=== PATIENT | male | born 1975 | race Caucasian/White ===

== ENCOUNTER 2016-08-14 20:20 | Emergency (ER) | payer MEDICARE, OTHER ==
[~2016-08-14] VITALS: Ht 180.3 cm; Wt 100.0 kg
[~2016-08-14 20:20] MED LIST: AMIO200 PO; APIX5 PO; CINA30 PO; HUMALOG SQ; HYDR-3129 PO; LACT10SO PO; LEVEMIR SQ; NOVOLOGSS SQ; OMEP20TA PO; OMEP20TA39 PO; PHOS667C PO
[2016-08-14 20:40] VITALS: BP 134/89; PULSE 92; RESP 18; TEMP 98.7; O2SAT 100
--- NOTE | 2016-08-15 04:43 | PD ---
HPI Chief Complaint: Skin Problem Time Seen by Provider: 04:35 Travel History International Travel<30 days: No Contact w/Intl Traveler<30days: No Traveled to known affect area: No History of Present Illness HPI 41-year-old male presents to the emergency department for evaluation of possible abscess to his upper mid back overlying the spine. Patient states that area has been inflamed 2 weeks. Patient states that he goes to hemodialysis Friday where the nurses have been applying dressings and trying to express purulent drainage. Patient denies any fever or chills. Patient is diabetic. Patient states area has not resolved and is becoming more tender so decided to come to the emergency room for evaluation. Patient denies vomiting chest pain shortness of breath abdominal pain has had mild nausea. Patient has extensive past medical history including diabetes right-sided BKA hypertension hemodialysis with chronic renal failure CAD CHF atrial fibrillation dyslipidemia rheumatoid arthritis anxiety depression previous MRSA abscess requiring surgical drainage. The patient rates his pain 6 -8/10 in intensity. Patient has not been on antibiotic therapy. Patient reports he missed his evening diabetic medications and ate before coming to the Emergency Department. [facility] Past Medical History Narrative Medical Cellulitis C. difficile colitis pneumonia right BKA CAD hyperkalemia renal calcinosis GERD sleep apnea sepsis atrial fibrillation CHF end-stage renal disease with hemodialysis diabetes anxiety cardiomyopathy osteomyelitis left little finger status post amputation atrial fibrillation seizure left upper extremity dialysis AV fistula; positive tobacco use; nursing notes reviewed. Hx Anticoagulant Therapy: Yes Arthritis: Yes (rheumatoid) Asthma: No Atrial Fibrillation: Yes Autoimmune Disease: No Blood Disorders: No Bipolar Disorder: Yes Anxiety: Yes Depression: Yes Heart Rhythm Problems: Yes Cancer: No Cardiac Catheterization: Yes (FOR ABLATION) Cardiovascular Problems: Yes High Cholesterol: Yes Chemotherapy: No Chest Pain: Yes Congestive Heart Failure: Yes COPD: No Cerebrovascular Accident: Yes (TIA) Diabetes: Yes Dialysis: Yes (MON, WED, FRI ) Diminished Hearing: No Endocrine: Yes Gastrointestinal Disorders: Yes GERD: Yes Glaucoma: Yes Genitourinary: Yes (DOESN'T VOID/MWF HD) Headaches: Yes Hepatitis: No Hiatal Hernia: No Hypertension: Yes Immune Disorder: No Implanted Vascular Access Dvce: Yes (DIALYSIS) Kidney Stones: Yes Musculoskeletal: Yes (back pain) Neurologic: Yes Psychiatric: No Reproductive: No Respiratory: No Immunizations Current: Yes Migraines: Yes Myocardial Infarction: Yes Radiation Therapy: No Renal Failure: Yes Schizophrenia: Yes Seizures: Yes (states med induced seizure) Sickle Cell Disease: No Sleep Apnea: Yes Thyroid Disease: No Ulcer: No Past Surgical History Abdominal Surgery: Yes (pyloric stenosis as ) AICD: No Appendectomy: No Arteriovenous Shunt: Yes (left arm) Body Medical Devices: left arm fistula Cardiac Surgery: Yes (Ablation to heart) Cholecystectomy: No Ear Surgery: No Endocrine Surgery: No Eye Surgery: Yes (CATARACTS REMOVED, MANY EYE SURGERIES) Genitourinary Surgery: Yes (left arm fistula) Gynecologic Surgery: No Insulin Pump: No Joint Replacement: No Neurologic Surgery: No Oral Surgery: No Pacemaker: No Thoracic Surgery: No Other Surgery: Yes (AV FISTULA PLACED LEFT ARM: 2010) Social History Alcohol Use: No Tobacco Use: Yes (2 cigarettes a day) Substance Use: No Allergies-Medications (Allergen,Severity, Reaction): Coded Allergies: Haldol (Verified Allergy, Severe, THROAT CLOSES UP, 04/10/16) Reglan (Verified Allergy, Severe, Irritability/Anxiety, 04/10/16) DYSTONIC REACTION Azithromycin (Verified Allergy, Intermediate, anxiety and itching, ) Clonidine (Verified Adverse Reaction, Severe, 04/10/16) PT STATES HE GOES COMATOSE OR GETS VERY CRAZY, MEMORY LOSS Dilaudid (Verified Adverse Reaction, Severe, becomes belligerent and out of control , 04/10/16) pt states does not have a allergy to this med Ativan (Verified Adverse Reaction, Intermediate, MAKES ANXIETY WORSE, ) *MDRO Multi-Drug Resistant Organism (Verified Adverse Reaction, Unknown, 04/10/16) MRSA (blood & ankle) - 04/2014; (buttock & chest) - 10/2015; (finger) - 12/23/15; (sputum) - 12/25/15; (Finger Wound) - 01/2016 MRSA PCR Screen POSITIVE - 01/10/15, 12/23/15, 02/25/16 MRSA & Klebsiella pneumoniae ESBL Pos (finger wound) - 02/07/16 Uncoded Allergies: ANTIEMETICS ( PER PT ALL ) (Adverse Reaction, Unknown, MAKES " ME CRAZY ", 11/21/15) Reported Meds & Prescriptions Reported Meds & Active Scripts Active Doxycycline Hyclate 100 Mg Cap 100 Mg PO BID Clindamycin (Clindamycin HCl) 150 Mg Cap 300 Mg PO Q6H 7 Days Lactulose Liq (Lactulose) 10 Gm/15 Ml Soln 30 Ml PO Q12HR 7 Days Novolog Insulin Supplemental Scale (Insulin Aspart) 100 /Ml Inj 1-9 Units SQ TIDACHS Max dose at bedtime:( )units; sugars less than 70, (0)units; sugars 150-199, (1)units; sugars 200-249, (3)units; sugars 250-299, (5)units; sugars 300-349,(7)units; sugars greater than 349, (9)units Scott 10-325 mg (Hydrocodone-Acetaminophen 10-325 mg) 1 Tab 1 Tab PO Q6H PRN Eliquis (Apixaban) 5 Mg Tab 5 Mg PO BID 30 Days Cordarone 200 Mg Tab (Amiodarone HCl) 200 Mg Tab 200 Mg PO DAILY 30 Days Levemir (Insulin Detemir) Inj 15 Units SQ Q12HR 30 Days Reported Humalog Inj (Insulin Human Lispro) 1,000 Unit/10 Ml Vial 5-25 Units SQ TIDAC Max dose at bedtime:( )units; sugars < 70,(0)units; sugars 150-199,(5)units; sugars 200-249,(10)units; sugars 250-299,(15)units; sugars 300-349,(20)units; sugars more than 349,(25)units. Omeprazole 20 Mg Tab 20 Mg PO DAILY Phoslo (Calcium Acetate) 667 Mg Cap 667 Mg PO TID Sensipar 30 mg (Cinacalcet) 30 Mg Tab 1 Tab PO DAILY Omeprazole (Omeprazole) 20 Mg Tab 20 Mg PO DAILY Review of Systems Except as stated in HPI: all other systems reviewed are Neg General / Constitutional: No: Fever, Chills HENT: No: Congestion Cardiovascular: No: Chest Pain or Discomfort Respiratory: No: Shortness of Breath Gastrointestinal: Positive: Nausea, No: Vomiting, Abdominal Pain Genitourinary: No: Flank Pain Musculoskeletal: No: Myalgias, Arthralgias Skin: Positive Lumps Neurologic: No: Weakness, Dizziness, Syncope Psychiatric: No: Anxiety Endocrine: No: Heat Intolerance Hematologic/Lymphatic: No: Easy Bruising Physical Exam Narrative GENERAL: Well-developed well-nourished male in wheelchair with left BKA in no acute distress no respiratory distress SKIN: Warm and dry. Midthoracic back overlying the spine is a 7.5 x 7.5 cluster of multiple pustules with purulent and seropurulent drainage tender to palpation with induration and no central pointing or fluctuance with extending induration 10 cm x 10 cm. HEAD: Normocephalic. EYES: No scleral icterus. No injection or drainage. NECK: Supple, trachea midline. No JVD or lymphadenopathy. CARDIOVASCULAR: Increased Regular rate and rhythm without murmurs, gallops, or rubs. RESPIRATORY: Breath sounds equal bilaterally. No accessory muscle use. GASTROINTESTINAL: Abdomen soft, non-tender, nondistended. MUSCULOSKELETAL: No cyanosis, or edema. LUE av fistula BACK: Nontender without obvious deformity. No CVA tenderness. Data Data Last Documented VS Vital Signs Date Time Temp Pulse Resp B/P Pulse Ox O2 Delivery O2 Flow Rate FiO2 08/14/16 20:40 98.7 92 18 134/89 100 Orders Basic Metabolic Panel (Bmp) (08/15/16 04:35) Complete Blood Count With Diff (08/15/16 04:35) Blood Culture (08/15/16 04:35) Wound Culture And Gram Stain (08/15/16 04:35) Iv Access Insert/Monitor (08/15/16 04:35) Clindamycin Inj (Cleocin Inj) (08/15/16 04:45) Lactic Acid (08/15/16 04:35) Insulin Human Regular Inj (Novolin R Inj (08/15/16 05:15) Sodium Chlor 0.9% 250 Ml Inj (Ns 250 Ml (08/15/16 05:15) Blood Glucose (08/15/16 05:04) Acetamin-Hydrocod 325-10 Mg (Scott 10-32 (08/15/16 05:30) Morphine Inj (Morphine Inj) (08/15/16 05:45) Acetamin-Hydrocod 325-10 Mg (Scott 10-32 (08/15/16 06:45) Labs Laboratory Tests Test 08/15/16 04:50 White Blood Count 7.1 TH/MM3 Red Blood Count 4.81 MIL/MM3 Hemoglobin 14.6 GM/DL Hematocrit 46.1 % Mean Corpuscular Volume 95.7 FL Mean Corpuscular Hemoglobin 30.4 PG Mean Corpuscular Hemoglobin 31.7 % Concent Red Cell Distribution Width 16.6 % Platelet Count 133 TH/MM3 Mean Platelet Volume 8.3 FL Neutrophils (%) (Auto) 72.9 % Lymphocytes (%) (Auto) 13.3 % Monocytes (%) (Auto) 8.4 % Eosinophils (%) (Auto) 2.2 % Basophils (%) (Auto) 3.2 % Neutrophils # (Auto) 5.2 TH/MM3 Lymphocytes # (Auto) 0.9 TH/MM3 Monocytes # (Auto) 0.6 TH/MM3 Eosinophils # (Auto) 0.2 TH/MM3 Basophils # (Auto) 0.2 TH/MM3 CBC Comment AUTO DIFF Differential Comment AUTO DIFF CONFIRMED Platelet Estimate LOW Platelet Morphology Comment NORMAL Red Cell Morphology Comment NORMAL Sodium Level 133 MEQ/L Potassium Level 4.7 MEQ/L Chloride Level 96 MEQ/L Carbon Dioxide Level 22.9 MEQ/L Anion Gap 14 MEQ/L Blood Urea Nitrogen 37 MG/DL Creatinine 6.50 MG/DL Estimat Glomerular Filtration 9 ML/MIN Rate Random Glucose 430 MG/DL Lactic Acid Level 1.2 mmol/L Calcium Level 8.5 MG/DL [facility] Medical Decision Making Medical Screen Exam Complete: Yes Emergency Medical Condition: Yes Medical Record Reviewed: Yes Interpretation(s) lactic acid: 1.2, not elevated CBC is automated differential: Mild thrombocytopenia 133K and left shift by automated differential 72.9% neutrophils Metabolic panel: Bicarbonate and anion gap found to be in normal range random glucose 430, elevated; BUN/creatinine chronically elevated consistent with chronic renal failure 37/6.50; potassium 4.7 CBC & BMP Diagram 08/15/16 04:50 Vital Signs Date Time Temp Pulse Resp B/P Pulse Ox O2 Delivery O2 Flow Rate FiO2 08/14/16 20:40 98.7 92 18 134/89 100 Differential Diagnosis Carbuncle, abscess, cellulitis, uncontrolled diabetes, sirs, sepsis Narrative Course IV access obtained specimens collected and sent for resulting patient noted at bedside to have glucose of 402; normal saline bolus administered 250 cc along with regular insulin. Patient requesting pain medication states he takes hydrocodone 10 mg/325 at home and that it only provide some pain relief for his legs states that it will not work for his back as it is for the past 2 weeks. Patient reports that he does tolerate IV morphine without nausea or vomiting. Refused hydrocodone 10/ 325 here by mouth. @ 0659 antibiotic completed recheck glucose: 364; patient clinically improved; VS: stable; patient does not meet sirs or sepsis criteria and reports feels clinically improved; patient encouraged regarding close follow up with his PCP, to monitor his temperature for fever, and take as tolerated acetaminophen for t : >/=100.4 F, also to return if fever, increased pain, or worsening symptoms or any other concerns. Patient given his morning hydrocodone. Critical Care Narrative Aggregate critical care time was 35 minutes. Time to perform other separately billable procedures was not included in the critical care time. My time did not include minutes spent treating any other patients simultaneously or on activities that did not directly contribute to the patient's treatment. The services I provided to this patient were to treat and/or prevent clinically significant deterioration that could result in: Sepsis, metabolic derangement, I provided critical care services requiring my management, as noted below: Chart data review, documentation time, medication orders and management, vital sign assessments/reviewing monitor data, ordering and reviewing lab tests, ordering and interpreting/reviewing x-rays and diagnostic studies, care of the patient and discussion of the patient with the admitting physicians. Diagnosis Primary Impression: Carbuncle of back Additional Impressions: Hyperglycemia Diabetes type 1, uncontrolled Qualified Code: E10.22 - Uncontrolled type 1 diabetes mellitus with chronic kidney disease on chronic dialysis Referrals: Primary Care Physician 1 day Patient Instructions: Narcotic given in the ED, General Instructions Additional Instructions: Complete course of antibiotic as prescribed Follow-up with your primary care provider call office in a.m. to schedule appointment Monitor temperature every 4 hours with thermometer take acetaminophen as needed for fever 100.4F or greater Follow diabetic diet and monitor blood sugars closely Return to the emergency department for any concerns or change in condition Keep wound site clean and dry apply dressing as needed Recommend recheck in the emergency department and 12-24 hours or for any worsening of condition such as fever increase pain uncontrolled blood sugars or any concerns Med/Other Pt SpecificInfo: Prescription(s) given Scripts Doxycycline Hyclate 100 Mg [id number] Mg PO BID #14 CAP Ref 0 Prov:Isabella Sutton MD 08/15/16 Clindamycin 150 Mg [id number] Mg PO Q6H 7 Days Ref 0 Prov:Isabella Sutton MD 08/15/16 Disposition: 01 DISCHARGE HOME Condition: Stable Isabella Sutton MD Aug 15, 2016 04:43
[2016-08-15] MEDS ORDERED: CLINDAMYCIN INJ 900 MG in SODIUM CHLORIDE 0.9% INJ 100 ML IV ONE (04:45)
[2016-08-15 05:06] LABS: AUTOMATED NEUTROPHIL # 5.2 TH/MM3 (1.8-7.7); BASOPHIL # 0.2 TH/MM3 (0-0.2); BASOPHIL % 3.2 % (0.0-2.0); EOSINOPHIL # 0.2 TH/MM3 (0-0.4); EOSINOPHIL % 2.2 % (0.0-4.0); HEMATOCRIT 46.1 % (39.0-51.0); LYMPH % 13.3 % (9.0-44.0); LYMPHOCYTE # 0.9 TH/MM3 (1.0-4.8); MEAN CELL VOLUME 95.7 FL (80.0-100.0); MEAN CORPUSCULAR HEMOGLOBIN 30.4 PG (27.0-34.0); MEAN CORPUSCULAR HGB CONC 31.7 % (32.0-36.0); MONO % 8.4 % (0.0-8.0); NEUT % 72.9 % (16.0-70.0); PLATELET COUNT 133 TH/MM3 (150-450); RED BLOOD COUNT 4.81 MIL/MM3 (4.50-5.90); RED CELL DISTRIBUTION WIDTH 16.6 % (11.6-17.2); WHITE BLOOD COUNT 7.1 TH/MM3 (4.0-11.0)
[2016-08-15 05:07] LABS: HEMO FLAGS AUTO DIFF
[2016-08-15 05:15] LABS: POTASSIUM 4.7 MEQ/L (3.5-5.1)
[2016-08-15] MEDS ORDERED: SODIUM CHLOR 0.9% 250 ML INJ 250 ML IV ONE (05:15)
[2016-08-15] MEDS ORDERED: INSULIN HUMAN REGULAR 1,000 UNITS/10 ML VIAL SQ ONE (05:15)
[2016-08-15 05:21] LABS: PLATELET ESTIMATE SMEAR LOW (NORMAL); PLATELET MORPHOLOGY NORMAL (NORMAL); SCAN/DIFF AUTO DIFF CONFIRMED
[2016-08-15] MEDS ORDERED: ACETAMINOPHEN/HYDROcodone 325 MG/10 MG TAB PO ONE ×2 (05:30→06:45)
[2016-08-15 05:33] LABS: BICARBONATE 22.9 MEQ/L (21.0-32.0)
[2016-08-15 05:40] VITALS: BP 137/68; PULSE 82; RESP 20; O2SAT 96
[2016-08-15] MEDS ORDERED: MORPHINE SULFATE 4 MG/ML INJ IV PUSH ONE (05:45)
[2016-08-15] MEDS ORDERED: CLIN1CAP5 PO (06:37)
[2016-08-15] MEDS ORDERED: DOXY100C PO (06:37)
[2016-08-15 06:40] VITALS: BP 126/73; PULSE 84; RESP 18; TEMP 97.6; O2SAT 94
[2016-08-15 06:43] VITALS: RESP 18
[2016-08-15] MEDS ORDERED: HUMALOG SQ (07:38)
[2016-08-15] MEDS ORDERED: ALPR.5 PO (07:38)
[2016-08-15] MEDS ORDERED: CYMB60CA PO (07:38)
[2016-08-15] MEDS ORDERED: HYDR-3583 PO (07:38)
[2016-08-15] MEDS ORDERED: ASPI325T PO (07:38)
== END 2016-08-15 07:40 | disposition home or self-care (01) ==
LOC: PHED 20:20 → PHEFT 08-15 07:40
DX: L02.232 Carbuncle of back [any part, except buttock and flank] (principal); E11.65 Type 2 diabetes mellitus with hyperglycemia; E11.22 Type 2 diabetes mellitus with diabetic chronic kidney disease; I12.0 Hypertensive chronic kidney disease with stage 5 chronic kidney disease or end stage renal disease; N18.6 End stage renal disease; I50.9 Heart failure, unspecified; I48.91 Unspecified atrial fibrillation; I42.9 Cardiomyopathy, unspecified; I25.10 Atherosclerotic heart disease of native coronary artery without angina pectoris; G47.30 Sleep apnea, unspecified; I25.2 Old myocardial infarction; E78.00 Pure hypercholesterolemia, unspecified; F17.210 Nicotine dependence, cigarettes, uncomplicated; Z99.2 Dependence on renal dialysis; Z79.01 Long term (current) use of anticoagulants; Z86.73 Personal history of transient ischemic attack (TIA), and cerebral infarction without residual deficits; Z89.511 Acquired absence of right leg below knee
CPT/HCPCS: 80048; 83605; 85025; 87040; 87070; 96361; 96365; 96372; 96375; 99285; J1815; J2270; J7050

== ENCOUNTER 2016-10-12 23:39 | Emergency (ER) | payer MEDICARE, OTHER ==
[~2016-10-12] VITALS: Ht 172.7 cm; Wt 102.0 kg
[~2016-10-12 23:39] MED LIST changes: +ALPR.5 PO; -AMIO200 PO; -APIX5 PO; +ASPI325T PO; -CINA30 PO; +CLIN1CAP5 PO; +CYMB60CA PO; +DOXY100C PO; -HYDR-3129 PO; +HYDR-3583 PO; -LEVEMIR SQ; -NOVOLOGSS SQ; -OMEP20TA39 PO; -PHOS667C PO
[2016-10-12 23:44] VITALS: BP 120/90; PULSE 133; RESP 12; TEMP 97.8; O2SAT 100
[2016-10-13 00:05] VITALS: BP 120/90; PULSE 102; RESP 18; TEMP 97.8; O2SAT 99
[2016-10-13] MEDS ORDERED: metroNIDAZOLE 500 MG INJ 100 ML IV ONE (00:30)
[2016-10-13] MEDS ORDERED: LIDOCAINE HCL 1% PF 30 ML VIAL INFIL ONE (00:30)
[2016-10-13] MEDS ORDERED: DOXYCYCLINE INJ 100 MG in SODIUM CHLORIDE 0.9% INJ 100 ML IV ONE (00:30)
[2016-10-13 01:00] LABS: AUTOMATED NEUTROPHIL # 5.6 TH/MM3 (1.8-7.7); BASOPHIL # 0.1 TH/MM3 (0-0.2); BASOPHIL % 1.9 % (0.0-2.0); EOSINOPHIL # 0.1 TH/MM3 (0-0.4); EOSINOPHIL % 1.9 % (0.0-4.0); HEMATOCRIT 48.1 % (39.0-51.0); LYMPH % 14.1 % (9.0-44.0); LYMPHOCYTE # 1.1 TH/MM3 (1.0-4.8); MEAN CELL VOLUME 96.2 FL (80.0-100.0); MEAN CORPUSCULAR HGB CONC 32.2 % (32.0-36.0); MONO % 7.6 % (0.0-8.0); NEUT % 74.5 % (16.0-70.0); PLATELET COUNT 112 TH/MM3 (150-450); RED CELL DISTRIBUTION WIDTH 17.6 % (11.6-17.2); WHITE BLOOD COUNT 7.5 TH/MM3 (4.0-11.0)
[2016-10-13 01:01] LABS: HEMO FLAGS DIFF FINAL
[2016-10-13 01:07] LABS: POTASSIUM 4.4 MEQ/L (3.5-5.1)
--- NOTE | 2016-10-13 01:09 | PD ---
HPI Chief Complaint: Skin Problem Time Seen by Provider: 00:17 Travel History International Travel<30 days: No Contact w/Intl Traveler<30days: No Traveled to known affect area: No History of Present Illness HPI 41-year-old male presents to the emergency department by private transportation for evaluation of facial abscesses affecting the left upper face that extends to his neck and multiple abscesses to the back. Patient's had no fever or chills. Patient has multiple medical problems including chronic renal failure receiving hemodialysis Friday as well as history of diabetes with right lower extremity BKA hypertension CAD CHF atrial fibrillation dyslipidemia anxiety depression previous MRA abscess requiring surgical drainage multiple amputations and rheumatoid arthritis. Patient has been on clindamycin since Friday and states the area to the left side of his face just in front of his left ear has continued to swell and patient had the site lanced by the provider at dialysis Center on Friday. Patient does not feel that the area is improving. Patient states that he's been taking aspirin for pain. Patient states she's been seen before for same complaint and has had good control of multiple areas of small abscesses on clindamycin and doxycycline. Patient was previously on Eliquis but states he has been off of this medication for at least 2 months or longer. 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 Patient's had no chest pain or shortness of breath or palpitations. Patient states his blood sugars have been well- controlled. Patient rates abscess site pain 10 over 10 in intensity. Last dose of clindamycin at 8 PM Friday evening. 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 forearm AV fistula; nursing notes reviewed Hx Anticoagulant Therapy: Yes Arthritis: Yes (rheumatoid) Asthma: No Atrial Fibrillation: Yes Autoimmune Disease: No Blood Disorders: No Bipolar Disorder: Yes Anxiety: Yes Depression: Yes Heart Rhythm Problems: Yes Cancer: No Cardiac Catheterization: Yes (FOR ABLATION) Cardiovascular Problems: Yes High Cholesterol: Yes Chemotherapy: No Chest Pain: Yes Congestive Heart Failure: Yes COPD: No Cerebrovascular Accident: Yes (TIA) Diabetes: Yes Patient Takes Glucophage: No Dialysis: Yes (FRI, FRI, FRI ) Diminished Hearing: No Endocrine: Yes Gastrointestinal Disorders: Yes GERD: Yes Glaucoma: Yes Genitourinary: Yes (DOESN'T VOID/MWF HD) Headaches: Yes Hepatitis: No Hiatal Hernia: No Heparin Induced Thrombocytopen: No Hypertension: Yes Immune Disorder: No Implanted Vascular Access Dvce: Yes (DIALYSIS) Kidney Stones: Yes Medical other: Yes (edema left calf s/p infection) Musculoskeletal: Yes (back pain) Neurologic: Yes Psychiatric: No Reproductive: No Respiratory: No Immunizations Current: Yes Migraines: Yes Myocardial Infarction: Yes Radiation Therapy: No Renal Failure: Yes Schizophrenia: Yes Seizures: Yes (states med induced seizure) Sickle Cell Disease: No Sleep Apnea: Yes Thyroid Disease: No Ulcer: No Tetanus Vaccination: < 5 Years Influenza Vaccination: Yes Past Surgical History Abdominal Surgery: Yes (pyloric stenosis as ) AICD: No Appendectomy: No Arteriovenous Shunt: Yes (left arm) Body Medical Devices: left arm fistula Cardiac Surgery: Yes (Ablation to heart) Cholecystectomy: No Ear Surgery: No Endocrine Surgery: No Eye Surgery: Yes (CATARACTS REMOVED, MANY EYE SURGERIES) Genitourinary Surgery: Yes (left arm fistula) Gynecologic Surgery: No Insulin Pump: No Joint Replacement: No Neurologic Surgery: No Oral Surgery: No Pacemaker: No Thoracic Surgery: No Other Surgery: Yes (AV FISTULA PLACED LEFT ARM: 2009) Social History Alcohol Use: No Tobacco Use: Yes (2 cigarettes a day) Substance Use: No Allergies-Medications (Allergen,Severity, Reaction): Coded Allergies: Haldol (Verified Allergy, Severe, THROAT CLOSES UP, 10/13/16) Reglan (Verified Allergy, Severe, Irritability/Anxiety, 10/13/16) DYSTONIC REACTION Azithromycin (Verified Allergy, Intermediate, anxiety and itching, 10/13/16 ) Clonidine (Verified Adverse Reaction, Severe, 10/13/16) PT STATES HE GOES COMATOSE OR GETS VERY CRAZY, MEMORY LOSS Dilaudid (Verified Adverse Reaction, Severe, becomes belligerent and out of control , 10/13/16) pt states does not have a allergy to this med Ativan (Verified Adverse Reaction, Intermediate, MAKES ANXIETY WORSE, 10/13) *MDRO Multi-Drug Resistant Organism (Verified Adverse Reaction, Unknown, ) MRSA (blood & ankle) - 04/2014; (buttock & chest) - 10/2015; (finger) - 12/23/15; (sputum) - 12/25/15; (Finger Wound) - 01/2016 MRSA PCR Screen POSITIVE - 01/10/15, 12/23/15, 02/25/16 MRSA & Klebsiella pneumoniae ESBL Pos (finger wound) - 02/07/16 Uncoded Allergies: ANTIEMETICS ( PER PT ALL ) (Adverse Reaction, Unknown, MAKES " ME CRAZY ", 11/21/15) Reported Meds & Prescriptions Reported Meds & Active Scripts Active Doxycycline Hyclate 100 Mg Cap 100 Mg PO BID Clindamycin (Clindamycin HCl) 150 Mg Cap 300 Mg PO Q6H 7 Days Reported Hydrocodone-Acetaminophen 10-325 mg Tab 1 Tab PO Q4H PRN Xanax (Alprazolam) 0.5 Mg Tab 0.5 Mg PO HS PRN Cymbalta DR (Duloxetine HCl) 60 Mg Capdr 60 Mg PO DAILY Aspirin 325 Mg Tab 325 Mg PO DAILY Humalog Inj (Insulin Human Lispro) 1,000 Unit/10 Ml Vial 5-25 Units SQ ACHS Max dose at bedtime:( )units; sugars < 70,(0)units; sugars 150-199,(5)units; sugars 200-249,(10)units; sugars 250-299,(15)units; sugars 300-349,(20)units; sugars more than 349,(25)units. Humalog Inj (Insulin Human Lispro) 1,000 Unit/10 Ml Vial 5-25 Units SQ TIDAC Max dose at bedtime:( )units; sugars < 70,(0)units; sugars 150-199,(5)units; sugars 200-249,(10)units; sugars 250-299,(15)units; sugars 300-349,(20)units; sugars more than 349,(25)units. Omeprazole 20 Mg Tab 20 Mg PO DAILY Review of Systems Except as stated in HPI: all other systems reviewed are Neg General / Constitutional: No: Fever, Chills HENT: No: Congestion Cardiovascular: No: Chest Pain or Discomfort Respiratory: No: Shortness of Breath Gastrointestinal: No: Nausea, Vomiting, Abdominal Pain Genitourinary: No: Flank Pain Musculoskeletal: No: Myalgias, Arthralgias Skin: Positive Rash, Positive Lumps (multiple lumps to the back and left face) Neurologic: No: Weakness, Dizziness, Focal Abnormalities, Coordination Problem Psychiatric: No: Anxiety Hematologic/Lymphatic: No: Easy Bruising, Lymph Node Enlargement Physical Exam Narrative GENERAL: Well-developed well-nourished male in no acute distress no respiratory distress SKIN: Warm and dry. Multiple areas of soft tissue swelling with clusters of pinpoint purulent drainage with one area of central fluctuance to the left upper back and 3 other areas with out fluctuance but induration noted with areas of pinpoint purulent drainage. HEAD: Normocephalic. EYES: No scleral icterus. No injection or drainage. ENT: Mucous membranes moist airway patent attention left face soft tissue swelling just anterior to extending to the tragus with evidence of previous incision with out active drainage or wick in place. Tender to palpation and small area is fluctuant with mild tenderness to palpation along the left face at mandible without soft tissue swelling induration or erythema no submandibular mass or tenderness. Tympanic membrane poorly visualized but no redness or drainage noted; soft tissue swelling of the area anterior to the tragus without external auditory canal swelling NECK: Supple, trachea midline. No JVD or lymphadenopathy. CARDIOVASCULAR: Regular rate and rhythm without murmurs, gallops, or rubs. RESPIRATORY: Breath sounds equal bilaterally. No accessory muscle use. GASTROINTESTINAL: Abdomen soft, non-tender, nondistended. MUSCULOSKELETAL: No cyanosis, or edema. BACK: Nontender without obvious deformity. No CVA tenderness. Data Data Last Documented VS Vital Signs Date Time Temp Pulse Resp B/P Pulse Ox O2 Delivery O2 Flow Rate FiO2 10/13/16 04:26 96 18 104/58 98 Room Air 10/13/16 00:05 97.8 Orders Basic Metabolic Panel (Bmp) (10/13/16 00:18) Complete Blood Count With Diff (10/13/16 00:18) Blood Culture (10/13/16 00:18) Wound Culture And Gram Stain (10/13/16:18) Iv Access Insert/Monitor (10/13/16:18) Wound Care (10/13/16 00:18) Lactic Acid (10/13/16 00:18) Doxycycline Inj (Vibramycin Inj) (10/13/16 00:30) Metronidazole 500 Mg Inj (Flagyl 500 Mg (10/13/16 00:30) Lidocaine Pf 1% Inj (Xylocaine-Mpf 1% In (10/13/16 00:30) Acetamin-Hydrocod 325-5 Mg ([place] 5-325 (10/13/16 02:30) Ct Soft Tiss Neck W/O Iv Cont (10/13/16 ) Morphine Inj (Morphine Inj) (10/13/16 03:45) Wound Culture And Gram Stain (10/13/16 04:04) Labs Laboratory Tests Test 10/13/16 00:45 White Blood Count 7.5 TH/MM3 Red Blood Count 5.00 MIL/MM3 Hemoglobin 15.5 GM/DL Hematocrit 48.1 % Mean Corpuscular Volume 96.2 FL Mean Corpuscular Hemoglobin 31.0 PG Mean Corpuscular Hemoglobin 32.2 % Concent Red Cell Distribution Width 17.6 % Platelet Count 112 TH/MM3 Mean Platelet Volume 8.6 FL Neutrophils (%) (Auto) 74.5 % Lymphocytes (%) (Auto) 14.1 % Monocytes (%) (Auto) 7.6 % Eosinophils (%) (Auto) 1.9 % Basophils (%) (Auto) 1.9 % Neutrophils # (Auto) 5.6 TH/MM3 Lymphocytes # (Auto) 1.1 TH/MM3 Monocytes # (Auto) 0.6 TH/MM3 Eosinophils # (Auto) 0.1 TH/MM3 Basophils # (Auto) 0.1 TH/MM3 CBC Comment DIFF FINAL Differential Comment Sodium Level 131 MEQ/L Potassium Level 4.4 MEQ/L Chloride Level 94 MEQ/L Carbon Dioxide Level 23.1 MEQ/L Anion Gap 14 MEQ/L Blood Urea Nitrogen 51 MG/DL Creatinine 9.90 MG/DL Estimat Glomerular Filtration 6 ML/MIN Rate Random Glucose 171 MG/DL Lactic Acid Level 1.6 mmol/L Calcium Level 10.0 MG/DL MDM Medical Decision Making Medical Screen Exam Complete: Yes Emergency Medical Condition: Yes Medical Record Reviewed: Yes Interpretation(s) CBC & BMP Diagram 10/13/16 00:45 lactic acid: 1.6, not elevated Vital Signs Date Time Temp Pulse Resp B/P Pulse Ox O2 Delivery O2 Flow Rate FiO2 10/13/16 03:38 101 18 110/62 98 Room Air 10/13/16 00:10 18 10/13/16 00:05 97.8 102 18 120/90 99 10/12/16 23:44 97.8 133 12 120/[address] soft tissue neck: CONCLUSION: 1. Stable neck CT since 2014 with chronic subcutaneous fat stranding as above. No abscess. No airway lesions. Sinuses are clear. Refugio Perez MD on October 13, 2016 at 4:04 Board Certified Radiologist. This report was verified electronically. Differential Diagnosis Cellulitis, abscess, carbuncle, uncontrolled diabetes, failed outpatient therapy Narrative Course IV access obtained specimens collected and sent for resulting. Patient reportedly has been on clindamycin twice daily since Friday with worsening symptoms. Discussed with patient administration of vancomycin in reference to his allergy --patient reports has had severe reactions to vancomycin --"anaphylaxis" but upon review of medical record received vancomycin while in the hospital under ID recommendation w/o documented adverse effect. Patient administered doxycycline 100 mg IV piggyback and Flagyl 500 mg IV piggyback After informed verbal consent I&D performed to the left cheek just anterior to the tragus and left upper back. Patient offered Lortab 5/325 for post procedure pain and refuses medication. Patient complains of pain at I&D sites and offered morphine sulfate 2 mg IV and refuses this medication. Patient with normal range white cell count lactic acid is not elevated after patient with reported decreased pain waiting for lab results heart rate decreased to 103. Heart rate remained 100 bpm after I&D patient complaining of pain therefore finally agreed to received times one dose of pain medication. CT of the soft tissue neck ordered noncontrast because of patient's complaint of pain and swelling referring down to the mandible and submandibular region. No palpable fluctuant mass patient's face is somewhat full with soft tissue adipose. CT soft tissue neck no evidence for abscess. It is now 4:30 AM the pressure is 104/58 with heart rate of 96. Patient is sleeping comfortably after one-time dose of morphine sulfate 2 mg. At this point in time patient appears stable for outpatient management with 2 day wound check for removal of packing from the left face and left upper back; does not meet SIRS or sepsis criteria. Patient is to keep scheduled dialysis Friday his last dialysis on Friday. Patient is continue his clindamycin and increased dosing from twice daily to 4 times a day. Procedures Procedure Narrative After the risks and benefits were discussed the following procedure was performed: INCISION AND DRAINAGE OF ABSCESS: The area was prepped and was sterilely draped. A subcutaneous wheal of 1 % Xylocaine with a total number 2 mL was used to anesthetize the area. The area was properly anesthetized. A number 11 scalpel was used to make a 1 cm incision across the area of the abscess of the left upper back. Cultures were obtained. The abscess was drained an irrigated with normal saline. Quarter inch iodoform packing was placed in the wound. Sterile dressing applied. Patient advised to have packing removed in two days. After the risks and benefits were discussed the following procedure was performed: INCISION AND DRAINAGE OF ABSCESS: The area was prepped and was sterilely draped. A subcutaneous wheal of 1 % Xylocaine with a total number 1 mL was used to anesthetize the area. The area was properly anesthetized. A number 11 scalpel was used to make a 1/2 cm incision across the area of the abscess. Cultures were obtained. The abscess was drained an irrigated with normal saline. Quarter inch iodoform packing was placed in the wound. Sterile dressing applied. Patient advised to have packing removed in two days. Sepsis Criteria SIRS Criteria (2 or more): Heart rate over 90 Diagnosis Primary Impression: Abscess of face Additional Impressions: History of carbuncle of skin and subcutaneous tissue Carbuncle and furuncle of other specified sites Referrals: Presiding Judge 2 days Primary Care Physician 2 days Patient Instructions: Narcotic given in the ED, General Instructions Additional Instructions: Apply warm moist compresses to left side of face and left upper back Complete course of antibiotics as prescribed; increase clindamycin to 4 times daily Keep scheduled dialysis Monitor temperature every 4 hours with thermometer and take acetaminophen as needed for fever 100.4F or greater Take pain medication as prescribed as needed for pain greater than 5/10 in intensity to areas of I&D Two-day wound check to have packing removal from the left face and left back; packing can be removed by primary care provider, at dialysis, or through the emergency department Return to the emergency department for pain fever or swelling or any concerns Monitor blood sugars closely and follow diabetic diet/renal diet Med/Other Pt SpecificInfo: Prescription(s) given, Existing Med Changed ( increase clindamycin to 4 times daily x 2 days) Scripts Doxycycline Hyclate 100 Mg [id number] Mg PO BID #14 CAP Ref 0 Prov:Isabella Sutton MD 5/21/17 Disposition: 01 DISCHARGE HOME Condition: Stable Salter,Isabella H. MD October 13, 2016 01:08
[2016-10-13 01:10] LABS: BICARBONATE 23.1 MEQ/L (21.0-32.0)
[2016-10-13] MEDS ORDERED: ACETAMINOPHEN/HYDROcodone 325 MG/5 MG TAB PO ONE (02:30)
[2016-10-13 03:38] VITALS: BP 110/62; PULSE 101; RESP 18; O2SAT 98
[2016-10-13] MEDS ORDERED: MORPHINE SULFATE 4 MG/ML INJ IV PUSH ONE (03:45)
--- NOTE | 2016-10-13 04:14 | RADHPO ---
EXAM DATE/TIME: 10/13/2016 02:51 [facility] COMPARISON: No previous studies available for comparison. INDICATIONS : Left sided facial pain and swelling. RADIATION DOSE: 16.84 CTDIvol (mGy) MEDICAL HISTORY : Myocardial infarction. Hypertension. Renal failure, chronic.Diabetes. SURGICAL HISTORY : None. ENCOUNTER: Initial ACUITY: 1 day PAIN SCORE: 6/10 LOCATION: Left neck TECHNIQUE: Volumetric scanning of the neck was performed. Using automated exposure control and adjustment of th e mA and/or kV according to patient size, radiation dose was kept as low as reasonably achievable to obtain optimal diagnostic quality images. FINDINGS: There is stable stranding in the subcutaneous fat since 2014 examination. No definite evidence for ac [place] cellulitis. No discrete or drainable fluid collections. Stranding in the subcutaneous tissues pos teriorly is completely stable in appearance since 2014 and right represent chronic scarring changes. No pathologically enlarged lymph nodes identified in the neck. No airway obstructing lesions or forei gn bodies. Paranasal sinuses are clear. Lung apices are clear. CONCLUSION: 1. Stable neck CT since 2014 with chronic subcutaneous fat stranding as above. No abscess. No airway lesions. Sinuses are clear. Refugio Perez MD on October 13, 2016 at 4:04 Board Certified Radiologist. This report was verified electronically.
[2016-10-13 04:26] VITALS: BP 104/58; PULSE 96; RESP 18; O2SAT 98
[2016-10-13] MEDS ORDERED: DOXY100C PO (04:33)
== END 2016-10-13 04:57 | disposition home or self-care (01) ==
LOC: PHED 23:39
DX: L02.01 Cutaneous abscess of face (principal); I25.10 Atherosclerotic heart disease of native coronary artery without angina pectoris; I50.9 Heart failure, unspecified; Z99.2 Dependence on renal dialysis; Z89.511 Acquired absence of right leg below knee; I48.91 Unspecified atrial fibrillation; I42.9 Cardiomyopathy, unspecified; Z79.4 Long term (current) use of insulin; I12.0 Hypertensive chronic kidney disease with stage 5 chronic kidney disease or end stage renal disease; E11.22 Type 2 diabetes mellitus with diabetic chronic kidney disease; N18.6 End stage renal disease; L02.828 Furuncle of other sites; B95.62 Methicillin resistant Staphylococcus aureus infection as the cause of diseases classified elsewhere
CPT/HCPCS: 10061; 70490; 80048; 83605; 85025; 86403; 87040; 87070; 87186; 96365; 96368; 96375; 99284; J2270

== ENCOUNTER 2016-10-27 16:32 | Emergency (ER) | payer MEDICARE, OTHER ==
[~2016-10-27] VITALS: Ht 177.8 cm; Wt 102.0 kg
[~2016-10-27 16:32] MED LIST changes: -LACT10SO PO
[2016-10-27 16:38] VITALS: BP 132/89; PULSE 130; RESP 16; TEMP 97.7; O2SAT 99
[2016-10-27] MEDS ORDERED: SENS60TA PO (16:49)
[2016-10-27] MEDS ORDERED: CLINDAMYCIN PHOS 300 MG/2 ML VIAL IM ONE (17:00)
[2016-10-27] MEDS ORDERED: traMADol HCL 50 MG TAB PO ONE (17:00)
[2016-10-27] MEDS ORDERED: SULFAMETHOXAZOLE-TRIMETHOPRIM DS 800-160 MG TAB PO ONE (17:00)
[2016-10-27] MEDS ORDERED: CLINDAMYCIN PHOS 600 MG/4 ML VIAL IM ONE (17:15)
[2016-10-27] MEDS ORDERED: BACT800T5 PO (17:15)
--- NOTE | 2016-10-27 17:16 | PD ---
HPI Chief Complaint: Skin Problem Time Seen by Provider: 16:48 Travel History International Travel<30 days: No Contact w/Intl Traveler<30days: No Traveled to known affect area: No History of Present Illness HPI PATIENT HAS MULTIPLE BOILS IN PLACE WHICH ARE BEING ADDRESSED BY TAKING DOXYCYCLINE, PT HAS FOLLOWUP WITH DIALYSIS. NO N/V ACTIVELY AT THIS POINT PFSH Past Medical History Hx Anticoagulant Therapy: Yes Arthritis: Yes (rheumatoid) Asthma: No Atrial Fibrillation: Yes Autoimmune Disease: No Blood Disorders: No Bipolar Disorder: Yes Anxiety: Yes Depression: Yes Heart Rhythm Problems: Yes Cancer: No Cardiac Catheterization: Yes (FOR ABLATION) Cardiovascular Problems: Yes High Cholesterol: Yes Chemotherapy: No Chest Pain: Yes Congestive Heart Failure: Yes COPD: No Cerebrovascular Accident: Yes (TIA) Diabetes: Yes Patient Takes Glucophage: No Dialysis: Yes (MON, WED, FRI ) Diminished Hearing: No Endocrine: Yes Gastrointestinal Disorders: Yes GERD: Yes Glaucoma: Yes Genitourinary: Yes (DOESN'T VOID/MWF HD) Headaches: Yes Hepatitis: No Hiatal Hernia: No Heparin Induced Thrombocytopen: No Hypertension: Yes Immune Disorder: No Implanted Vascular Access Dvce: Yes (DIALYSIS) Kidney Stones: Yes Medical other: Yes (edema left calf s/p infection) Musculoskeletal: Yes (back pain) Neurologic: Yes Psychiatric: No Reproductive: No Respiratory: No Immunizations Current: Yes Migraines: Yes Myocardial Infarction: Yes Radiation Therapy: No Renal Failure: Yes Schizophrenia: Yes Seizures: Yes (states med induced seizure) Sickle Cell Disease: No Sleep Apnea: Yes Thyroid Disease: No Ulcer: No Influenza Vaccination: Yes ?: Not Past Surgical History 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) AICD: No Appendectomy: No Arteriovenous Shunt: Yes (left arm) Body Medical Devices: left arm fistula Cardiac Surgery: Yes (Ablation to heart) Cholecystectomy: No Ear Surgery: No Endocrine Surgery: No Eye Surgery: Yes (CATARACTS REMOVED, MANY EYE SURGERIES) Genitourinary Surgery: Yes (left arm fistula) Gynecologic Surgery: No Insulin Pump: No Joint Replacement: No Neurologic Surgery: No Oral Surgery: No Pacemaker: No Thoracic Surgery: No Other Surgery: Yes (AV FISTULA PLACED LEFT ARM: 2009) Social History Alcohol Use: No Tobacco Use: Yes (2 cigarettes a day) Substance Use: No Allergies-Medications (Allergen,Severity, Reaction): Coded Allergies: Haldol (Verified Allergy, Severe, THROAT CLOSES UP, 10/27/16) Reglan (Verified Allergy, Severe, Irritability/Anxiety, 10/27/16) DYSTONIC REACTION Azithromycin (Verified Allergy, Intermediate, anxiety and itching, 10/27/16) Clonidine (Verified Adverse Reaction, Severe, 10/27/16) PT STATES HE GOES COMATOSE OR GETS VERY CRAZY, MEMORY LOSS Dilaudid (Verified Adverse Reaction, Severe, becomes belligerent and out of control , 10/27/16) pt states does not have a allergy to this med Ativan (Verified Adverse Reaction, Intermediate, MAKES ANXIETY WORSE, ) *MDRO Multi-Drug Resistant Organism (Verified Adverse Reaction, Unknown, ) MRSA (back)-10/13/16 MRSA (blood & ankle) - 04/2014; (buttock & chest) - 10/2015; (finger) - 12/23/15; (sputum) - 12/25/15; (Finger Wound) - 01/2016 MRSA PCR Screen POSITIVE - 01/10/15, 12/23/15, 02/25/16 MRSA & Klebsiella pneumoniae ESBL Pos (finger wound) - 02/07/16 Uncoded Allergies: ANTIEMETICS ( PER PT ALL ) (Adverse Reaction, Unknown, MAKES " ME CRAZY ", 11/21/15) Reported Meds & Prescriptions Reported Meds & Active Scripts Active Doxycycline Hyclate 100 Mg Cap 100 Mg PO BID Reported Sensipar (Cinacalcet) 60 Mg Tab 60 Mg PO DAILY Xanax (Alprazolam) 0.5 Mg Tab 0.5 Mg PO HS PRN Cymbalta DR (Duloxetine HCl) 60 Mg Capdr 60 Mg PO DAILY Aspirin 325 Mg Tab 325 Mg PO DAILY Humalog Inj (Insulin Human Lispro) 1,000 Unit/10 Ml Vial 5-25 Units SQ ACHS Max dose at bedtime:( )units; sugars < 70,(0)units; sugars 150-199,(5)units; sugars 200-249,(10)units; sugars 250-299,(15)units; sugars 300-349,(20)units; sugars more than 349,(25)units. Humalog Inj (Insulin Human Lispro) 1,000 Unit/10 Ml Vial 5-25 Units SQ TIDAC Max dose at bedtime:( )units; sugars < 70,(0)units; sugars 150-199,(5)units; sugars 200-249,(10)units; sugars 250-299,(15)units; sugars 300-349,(20)units; sugars more than 349,(25)units. Omeprazole 20 Mg Tab 20 Mg PO DAILY Review of Systems Except as stated in HPI: all other systems reviewed are Neg Physical Exam Narrative GENERAL: SKIN: Warm and dry....MULTIPLE PUSTULES NOTED, LEFT EAR IS DRAINING NOTED INCISION IN PLACE, HEAD: Atraumatic. Normocephalic. EYES: Pupils equal and round. No scleral icterus. No injection or drainage. ENT: No nasal bleeding or discharge. Mucous membranes pink and moist. NECK: Trachea midline. No JVD. CARDIOVASCULAR: Regular rate and rhythm. WARM EXTREMITIES NO EVIDENCE OF BLACK/ GANGRENE ON EXAM RESPIRATORY: No accessory muscle use. Clear to auscultation. Breath sounds equal bilaterally. GASTROINTESTINAL: Abdomen soft, non-tender, nondistended. Hepatic and splenic margins not palpable. MUSCULOSKELETAL: Extremities without clubbing, cyanosis, or edema. No obvious deformities. NEUROLOGICAL: Awake and alert. No obvious cranial nerve deficits. Motor grossly within normal limits. Five out of 5 muscle strength in the arms and legs. Normal speech. PSYCHIATRIC: Appropriate mood and affect; insight and judgment normal. Data Data Last Documented VS Vital Signs Date Time Temp Pulse Resp B/P Pulse Ox O2 Delivery O2 Flow Rate FiO2 10/27/16 16:38 97.7 130 16 132/89 99 Orders Clindamycin Inj (Cleocin Inj) (10/27/16 17:00) Sulfamet-Trimeth Ds 800-160 Mg (Bactrim (10/27/16 17:00) Tramadol (Ultram) (10/27/16 17:00) [facility] Medical Decision Making Medical Screen Exam Complete: Yes Emergency Medical Condition: Yes Medical Record Reviewed: Yes Differential Diagnosis CELLULITIS/ Narrative Course SEE ABOVE, WILL IM TREATMENT AND D/C HOME TO CONTINUE ABX TREATMENT AND SEE PCP FOR FURTHER CARE Diagnosis Primary Impression: Cellulitis and abscess Med/Other Pt SpecificInfo: Prescription(s) given Scripts Sulfamethoxazole-Trimethoprim (Bactrim DS)800-160 Mg Tab1 Tab PO BID #20 TAB Prov:Wilfredo Ashley MD 10/27/16 Disposition: 01 DISCHARGE HOME Condition: Stable Wilfredo Ashley MD Oct 27, 2016 17:16
== END 2016-10-27 17:32 | disposition home or self-care (01) ==
LOC: PHED 16:32
DX: L03.90 Cellulitis, unspecified (principal); L02.91 Cutaneous abscess, unspecified; I10 Essential (primary) hypertension; E11.9 Type 2 diabetes mellitus without complications; E78.00 Pure hypercholesterolemia, unspecified; N19 Unspecified kidney failure; I25.2 Old myocardial infarction; Z72.0 Tobacco use; Z99.2 Dependence on renal dialysis; Z79.4 Long term (current) use of insulin; Z79.01 Long term (current) use of anticoagulants; Z87.39 Personal history of other diseases of the musculoskeletal system and connective tissue; Z86.79 Personal history of other diseases of the circulatory system; Z86.59 Personal history of other mental and behavioral disorders; Z87.19 Personal history of other diseases of the digestive system; Z86.69 Personal history of other diseases of the nervous system and sense organs
CPT/HCPCS: 96372

== ENCOUNTER 2016-12-15 19:39 | Inpatient (IN) | payer MEDICARE, OTHER ==
[~2016-12-15] VITALS: Ht 180.3 cm; Wt 103.6 kg
[2016-12-15] VITALS (8 sets, daily range): BP systolic 88–156; BP diastolic 52–75; PULSE 89–130; RESP 18; TEMP 97.4; O2SAT 93–100
[~2016-12-15 19:39] MED LIST changes: +BACT800T5 PO; -CLIN1CAP5 PO; -HYDR-3583 PO; +SENS60TA PO
[2016-12-15] MEDS ORDERED: CALC667C PO (20:24)
[2016-12-15] MEDS ORDERED: NOVOLOGP2 SQ (20:24)
[2016-12-15] MEDS ORDERED: HYDR-3583 PO (20:24)
[2016-12-15] MEDS ORDERED: PIPERACIL-TAZO 4.5 GM PREMIX 100 ML IV ONE (20:30)
[2016-12-15] MEDS ORDERED: VANCOMYCIN INJ 1,250 MG in SODIUM CHLOR 0.9% 250 ML INJ 250 ML IV ONE (20:30)
[2016-12-15 20:57] LABS: AUTOMATED NEUTROPHIL # 5.9 TH/MM3 (1.8-7.7); BASOPHIL % 0.5 % (0.0-2.0); EOSINOPHIL # 0.1 TH/MM3 (0-0.4); EOSINOPHIL % 1.1 % (0.0-4.0); HEMATOCRIT 43.8 % (39.0-51.0); HEMO FLAGS DIFF FINAL; LYMPH % 14.3 % (9.0-44.0); LYMPHOCYTE # 1.1 TH/MM3 (1.0-4.8); MEAN CELL VOLUME 99.6 FL (80.0-100.0); MEAN CORPUSCULAR HGB CONC 32.1 % (32.0-36.0); MONO % 9.5 % (0.0-8.0); NEUT % 74.6 % (16.0-70.0); PLATELET COUNT 120 TH/MM3 (150-450); RED CELL DISTRIBUTION WIDTH 19.4 % (11.6-17.2); WHITE BLOOD COUNT 7.8 TH/MM3 (4.0-11.0)
[2016-12-15] MEDS ORDERED: SODIUM CHLORID 0.9% 500 ML INJ 500 ML IV ONE (21:00)
[2016-12-15] MEDS ORDERED: DILTIAZEM HCL 25 MG/5 ML VIAL IV ONE (21:00)
[2016-12-15 21:14] LABS: CHLORIDE 98 MEQ/L (98-107); POTASSIUM 5.9 MEQ/L (3.5-5.1); SODIUM (NA) 132 MEQ/L (136-145)
--- NOTE | 2016-12-15 21:14 | RADRPT ---
EXAM DATE/TIME: 12/15/2016 20:31 [facility] COMPARISON: CHEST SINGLE AP, February 24, 2016, 15:29. INDICATIONS : Shortness of breath. MEDICAL HISTORY : Congestive heart failure. Myocardial infarction. Diabetes mellitus type II. SURGICAL HISTORY : Cardiac ablation. ENCOUNTER: Initial ACUITY: 1 day PAIN SCORE: 0/10 LOCATION: Bilateral chest FINDINGS: A single view of the chest demonstrates the lungs to be symmetrically aerated without evidence of mas s, infiltrate or effusion. Mild cardiomegaly. Increase in pulmonary vascularity. The cardiomediastin al contours are unremarkable. Osseous structures are intact. CONCLUSION: Mild cardiomegaly and increase in pulmonary vascularity. Ramses Vazquez MD on December 15, 2016 at 21:11 Board Certified Radiologist. This report was verified electronically.
[2016-12-15 21:18] LABS: ANION GAP 16 MEQ/L (5-15); BICARBONATE 18.2 MEQ/L (21.0-32.0); BLOOD UREA NITROGEN 74 MG/DL (7-18); MAGNESIUM 2.8 MG/DL (1.5-2.5)
[2016-12-15 21:19] LABS: APTT (PATIENT) 27.3 SEC (24.3-30.1); PROTHROMBIN TIME - PATIENT 10.7 SEC (9.8-11.6)
--- NOTE | 2016-12-15 21:20 | PD ---
HPI Chief Complaint: Skin Problem Time Seen by Provider: 20:19 Travel History International Travel<30 days: No Contact w/Intl Traveler<30days: No Traveled to known affect area: No History of Present Illness HPI 41-year-old male presents to the emergency department by private transportation for evaluation of generalized weakness nausea vomiting and multiple areas of draining wounds and abscesses affecting the upper extremities. 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 Patient was last treated with antibiotic IV vancomycin during hemodialysis 2 weeks ago for multiple skin infections. Patient states continued to have ongoing skin issues specifically of the bilateral hands and upper back. Patient states she's had no issues with his right BKA stump. Patient does not report any fever but has had chills. He was treated in September for multiple skin abscesses with doxycycline and Flagyl after not improving on clindamycin as an outpatient. Patient subsequently had incision and drainage of facial abscess and abscess to the back. Patient did well until he apparently had a non-syncopal slip and fall and abraded multiple digits of the hands bilaterally. Patient was seen in the emergency department 10/27/16 and Bactrim was added to his antibiotic regimen. Patient states that while he was receiving dialysis which is scheduled Friday and Fridays he was also receiving vancomycin IV. Patient was last seen by his avionics systems integration specialist/primary care provider Dr. Sharif on Friday and was encouraged to come to the hospital to be admitted for multiple skin infections. Patient is not followed by a psychiatric mental health nurse. Patient states he has not been having any issues with his left lower extremity. Patient states that he did discontinue L requests that he had been prescribed for his history of atrial fibrillation on his own [facility] Past Medical History Hx Anticoagulant Therapy: Yes Arthritis: Yes (rheumatoid) Asthma: No Atrial Fibrillation: Yes Autoimmune Disease: No Blood Disorders: No Bipolar Disorder: Yes Anxiety: Yes Depression: Yes Heart Rhythm Problems: Yes Cancer: No Cardiac Catheterization: Yes (FOR ABLATION) Cardiovascular Problems: Yes High Cholesterol: Yes Chemotherapy: No Chest Pain: Yes Congestive Heart Failure: Yes COPD: No Cerebrovascular Accident: Yes (TIA) Diabetes: Yes Dialysis: Yes (FRI, FRI, FRI ) Diminished Hearing: No Endocrine: Yes Gastrointestinal Disorders: Yes GERD: Yes Glaucoma: Yes Genitourinary: Yes (DOESN'T VOID/MWF HD) Headaches: Yes Hepatitis: No Hiatal Hernia: No Heparin Induced Thrombocytopen: No Hypertension: Yes Immune Disorder: No Implanted Vascular Access Dvce: Yes (DIALYSIS) Kidney Stones: Yes Musculoskeletal: Yes (back pain) Neurologic: Yes Psychiatric: No Reproductive: No Respiratory: No Immunizations Current: Yes Migraines: Yes Myocardial Infarction: Yes Radiation Therapy: No Renal Failure: Yes Schizophrenia: Yes Seizures: Yes (states med induced seizure) Sickle Cell Disease: No Sleep Apnea: Yes Thyroid Disease: No Ulcer: No Past Surgical History 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) AICD: No Appendectomy: No Arteriovenous Shunt: Yes (left arm) Body Medical Devices: left arm fistula Cardiac Surgery: Yes (Ablation to heart) Cholecystectomy: No Ear Surgery: No Endocrine Surgery: No Eye Surgery: Yes (CATARACTS REMOVED, MANY EYE SURGERIES) Genitourinary Surgery: Yes (left arm fistula) Gynecologic Surgery: No Insulin Pump: No Joint Replacement: No Neurologic Surgery: No Oral Surgery: No Pacemaker: No Thoracic Surgery: No Other Surgery: Yes (AV FISTULA PLACED LEFT ARM: 2009) Social History Alcohol Use: No Tobacco Use: Yes (2 cigarettes a day) Substance Use: No Allergies-Medications (Allergen,Severity, Reaction): Coded Allergies: Haldol (Verified Allergy, Severe, THROAT CLOSES UP, 12/15/16) Reglan (Verified Allergy, Severe, Irritability/Anxiety, 12/15/16) DYSTONIC REACTION Azithromycin (Verified Allergy, Intermediate, anxiety and itching, 12/15/16 ) Clonidine (Verified Adverse Reaction, Severe, 12/15/16) PT STATES HE GOES COMATOSE OR GETS VERY CRAZY, MEMORY LOSS Dilaudid (Verified Adverse Reaction, Severe, becomes belligerent and out of control , 12/15/16) pt states does not have a allergy to this med Ativan (Verified Adverse Reaction, Intermediate, MAKES ANXIETY WORSE, 12/15) *MDRO Multi-Drug Resistant Organism (Verified Adverse Reaction, Unknown, ) MRSA (back)-10/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 MRSA (blood & ankle) - 04/2014; (buttock & chest) - 10/2015; (finger) - 12/23/15; (sputum) - 12/25/15; (Finger Wound) - 01/2016 MRSA PCR Screen POSITIVE - 01/10/15, 12/23/15, 02/25/16 MRSA & Klebsiella pneumoniae ESBL Pos (finger wound) - 02/07/16 Uncoded Allergies: ANTIEMETICS ( PER PT ALL ) (Adverse Reaction, Unknown, MAKES " ME CRAZY ", 11/21/15) Reported Meds & Prescriptions Reported Meds & Active Scripts Active Reported Calcium Acetate (Calcium Acetate (Phosphate Bin) 667 Mg Cap 4 Tab PO ACHS Hydrocodone-Acetaminophen 10-325 mg Tab 1 Tab PO Q4H PRN Novolog Inj (Insulin Aspart) 1,000 Unit/10 Ml Vial 0 SQ DIRECTED Sliding Scale as directed. Sensipar (Cinacalcet) 60 Mg Tab 60 Mg PO DAILY Xanax (Alprazolam) 0.5 Mg Tab 0.5 Mg PO HS PRN Aspirin 325 Mg Tab 325 Mg PO DAILY Omeprazole 20 Mg Tab 20 Mg PO DAILY Review of Systems Except as stated in HPI: all other systems reviewed are Neg General / Constitutional: Positive: Chills, No: Fever HENT: No: Congestion Cardiovascular: Positive: Chest Pain or Discomfort, Palpitations, Diaphoresis Respiratory: Positive: Cough, Shortness of Breath Gastrointestinal: No: Abdominal Pain Genitourinary: Positive: Oliguria Musculoskeletal: Positive: Myalgias, Arthralgias Skin: Positive Rash, Positive Lumps Neurologic: Positive: Weakness Psychiatric: Positive: Anxiety Hematologic/Lymphatic: No: Easy Bruising Physical Exam Narrative GENERAL: Well-developed well-nourished male in no acute respiratory distress SKIN: Warm and dry. Multiple areas of various staged wounds to the bilateral hand/digits with various stages of healing and fluctuance of the left thumb IP with purulent drainage mild erythema of the right BKA stump nontender without increased warmth and isolated purpuric lesion to the left great toe distal aspect. HEAD: Normocephalic. EYES: No scleral icterus. No injection or drainage. NECK: Supple, trachea midline. No JVD or lymphadenopathy. CARDIOVASCULAR: Increased irregular irregular rate and rhythm without murmurs, gallops, or rubs. RESPIRATORY: Breath sounds equal bilaterally. No accessory muscle use. GASTROINTESTINAL: Abdomen soft, non-tender, nondistended. MUSCULOSKELETAL: No cyanosis, or edema. Right BKA. BACK: Nontender without obvious deformity. No CVA tenderness. Data Data Last Documented VS Vital Signs Date Time Temp Pulse Resp B/P Pulse Ox O2 Delivery O2 Flow Rate FiO2 12/15/16 22:16 102 18 118/60 100 12/15/16 21:36 Nasal Cannula 3 12/15/16 20:42 97.4 Orders Electrocardiogram (12/15/16 20:19) Complete Blood Count With Diff (12/15/16 20:19) Comprehensive Metabolic Panel (12/15/16 20:19) Prothrombin Time / Inr (Pt) (12/15/16 20:19) Act Partial Throm Time (Ptt) (12/15/16 20:19) Lactic Acid Sepsis Protocol (12/15/16 20:19) Magnesium (Mg) (12/15/16 20:19) Troponin I (12/15/16 20:19) Urinalysis - C+S If Indicated (12/15/16 20:19) Blood Culture (12/15/16 20:19) Wound Culture And Gram Stain (12/15/16 20:19) Chest, Single Ap (12/15/16 20:19) Blood Glucose (12/15/16 20:19) Ecg Monitoring (12/15/16 20:19) Iv Access Insert/Monitor (12/15/16 20:19) Oximetry (12/15/16 20:19) Oxygen Administration (12/15/16 20:19) Piperacil-Tazo 4.5 Gm Premix (Zosyn 4.5 (12/15/16 20:30) Vancomycin Inj (Vancomycin Inj) (12/15/16 20:30) Diltiazem Inj (Cardizem Inj) (12/15/16 21:00) Sodium Chlorid 0.9% 500 Ml Inj (Ns 500 M (12/15/16 21:00) Diphenhydramine Inj (Benadryl Inj) (12/15/16 21:30) Aspirin Chew (Aspirin Chew) (12/16/16 09:00) Diltiazem Inj (Cardizem Inj) (12/15/16 21:45) Sodium Chloride 0.9% Flush (Ns Flush) (12/15/16 21:45) Sodium Polysty Sulfate Liq (Kayexalate L (12/15/16 21:45) Sodium Bicarbonate 8.4% Inj (Sodium Bica (12/15/16 21:45) Aspirin Chew (Aspirin Chew) (12/15/16 21:45) Clindamycin Inj (Cleocin Inj) (12/15/16 22:15) Chest, Single Ap (12/15/16 ) Admit Order (Ed Use Only) (12/15/16 ) ^ Saline Lock (12/15/16 22:21) Labs Laboratory Tests Test 12/15/16 20:25 White Blood Count 7.8 TH/MM3 Red Blood Count 4.40 MIL/MM3 Hemoglobin 14.1 GM/DL Hematocrit 43.8 % Mean Corpuscular Volume 99.6 FL Mean Corpuscular Hemoglobin 32.0 PG Mean Corpuscular Hemoglobin 32.1 % Concent Red Cell Distribution Width 19.4 % Platelet Count 120 TH/MM3 Mean Platelet Volume 8.4 FL Neutrophils (%) (Auto) 74.6 % Lymphocytes (%) (Auto) 14.3 % Monocytes (%) (Auto) 9.5 % Eosinophils (%) (Auto) 1.1 % Basophils (%) (Auto) 0.5 % Neutrophils # (Auto) 5.9 TH/MM3 Lymphocytes # (Auto) 1.1 TH/MM3 Monocytes # (Auto) 0.7 TH/MM3 Eosinophils # (Auto) 0.1 TH/MM3 Basophils # (Auto) 0.0 TH/MM3 CBC Comment DIFF FINAL Differential Comment Prothrombin Time 10.7 SEC Prothromb Time International 1.0 RATIO Ratio Activated Partial 27.3 SEC Thromboplast Time Sodium Level 132 MEQ/L Potassium Level 5.9 MEQ/L Chloride Level 98 MEQ/L Carbon Dioxide Level 18.2 MEQ/L Anion Gap 16 MEQ/L Blood Urea Nitrogen 74 MG/DL Creatinine 11.00 MG/DL Estimat Glomerular Filtration 5 ML/MIN Rate Random Glucose 246 MG/DL Lactic Acid Level 2.0 mmol/L Calcium Level 8.9 MG/DL Magnesium Level 2.8 MG/DL Total Bilirubin 1.1 MG/DL Aspartate Amino Transf 20 U/L (AST/SGOT) Alanine Aminotransferase 32 U/L (ALT/SGPT) Alkaline Phosphatase 277 U/L Troponin I 0.10 NG/ML Total Protein 8.7 GM/DL Albumin 3.4 GM/DL MDM Medical Decision Making Medical Screen Exam Complete: Yes Emergency Medical Condition: Yes Medical Record Reviewed: Yes Interpretation(s) EKG: Atrial fibrillation with rapid ventricular response of 130 beats for minute no acute ST elevation noted nonspecific ST segment depression laterally in V5 V6. Differential Diagnosis Atrial fibrillation with RVR, sepsis, volume overload, CHF, ACS, KS, electrolyte disturbance, cellulitis, medical noncompliance Narrative Course 41-year-old diabetic with history of atrial fibrillation recurrent skin infections renal failure receiving hemodialysis Friday presents stating that he hasn't felt well today with episode of vomiting and generalized weakness presents at this time stating that he felt like he needed to come back in to be evaluated as he been told by his primary care provider/ avionics systems integration specialist on Friday to come to the hospital for admission for multiple skin infections patient's had no syncope or near syncope. Patient placed on cardiac cath rn and noted to be in atrial fibrillation with aberrant ventricular response rate between 110 and 150. Patient aware plan to administer Cardizem for rate control initial blood pressure low normal. Patient 's had settled down and heart rate seemed to decrease to 100-110 and is informed that he will need to have IV antibiotics and be admitted. Specimens collected and sent for resulting as well as wound culture blood culture lactic acid CBC metabolic panel cardiac enzymes and EKG. Antibiotics ordered for Zosyn and vancomycin for skin infection one-time dose weight-based. Patient is due to have dialysis on Friday. Patient with no previous adverse reaction to penicillin or vancomycin reportedly. Patient's rate again has started to increase therefore Cardizem has been ordered 20 mg IV to be administered based on blood pressure as 10 mg 10 mg dosing to see if patient can tolerate medication and at obtained except we'll rate control. We'll also administer one-time bolus of normal saline 250 cc bolus. @ 9:15 PM informed by patient's nurse yelling out that he can't breathe had just started infusion of Zosyn and had not received any IV fluid bolus or Cardizem on evaluation of patient he is agitated sitting upright stating that he needs to sit up and dangling his legs off the exam bed to that he can breathe auscultation of lung oneill note rales or rhonchi or wheezing is auscultated heart rate is increased regular rate and rhythm consistent with atrial fibrillation with RVR and monitored atrial fibrillation with RVR with rate of 120-155. Blood pressure 97/56. Patient repositioned patient with dry heaves to refuses any antibiotics as he states they all cause him to have an adverse reaction unable to tolerate Ativan. Patient does complain of some pruritus of the lower extremities. No urticarial reaction no lip tongue or throat swelling no stridor or hoarseness. Blood pressure improved and patient given Cardizem 10 mg IV with rate decreased to 108-110 blood pressure again 97/56 patient clinically more comfortable. Patient this time reports that he has had similar reaction to vancomycin upon infusion in the past and has had to receive Benadryl. Patient may be exhibiting a potential adverse reaction to Zosyn although he has never had an adverse reaction to penicillin or Zosyn in the past. Benadryl 25 mg IV administered. Received NS 250cc bolus x 1 O2 sat 99% 2L/M NC. Zosyn and vancomycin medications have been discontinued. Patient administered clindamycin 900 mg IV piggyback times one dose. Patient's case discussed with on-call avionics systems integration specialist Dr. López, , covering for patient's avionics systems integration specialist Dr. Song recommends will arrange for hemodialysis tonight is aware of plan to transfer patient to [facility]. Patient's case discussed with Dr. Agosto who will accept patient for admission to ICU and transferred to [facility] Sepsis Criteria SIRS Criteria (2 or more): Heart rate over 90 Sepsis Criteria (SIRS+source): Infect source susp/known (cellulitis) Physician Communication Physician Communication discussed with Dr López covering for Dr Song; discussed with DR Agosto--will accept for admission to [facility] ICU Diagnosis Primary Impression: Atrial fibrillation with rapid ventricular response Additional Impressions: Cellulitis and abscess of hand Hyperkalemia Elevated troponin I level Hypotension Qualified Code: I95.89 - Other specified hypotension Adverse drug reaction Admitting Information Admitting Physician Requests: Admit Isabella Sutton MD Dec 15, 2016 21:20
[2016-12-15 21:21] LABS: ALT (GPT) 32 U/L (12-78); AST (GOT) 20 U/L (15-37); GLOMERULAR FILTRATION RATE 5 ML/MIN (>89)
[2016-12-15 21:22] LABS: TOTAL BILIRUBIN ADULT 1.1 MG/DL (0.2-1.0)
[2016-12-15 21:24] LABS: ALKALINE PHOSPHATASE 277 U/L (45-117)
[2016-12-15] MEDS ORDERED: diphenhydrAMINE HCL 50 MG/ML VIAL IV PUSH ONE (21:30)
[2016-12-15] MEDS ORDERED: DILTIAZEM INJ 125 MG in SODIUM CHLORIDE 0.9% INJ 100 ML IV SCH (21:45)
[2016-12-15] MEDS ORDERED: SODIUM POLYSTYRENE SULFONATE SUSP 15 GM/60 ML CUP PO ONE (21:45)
[2016-12-15] MEDS ORDERED: SODIUM BICARBONATE 8.4% INJ 50 MEQ/50 ML SYR IV PUSH ONE (21:45)
[2016-12-15] MEDS ORDERED: SODIUM CHLORIDE 0.9% FLUSH 10 ML FLUSH IVF PRN ×2 (21:45→22:30)
[2016-12-15] MEDS ORDERED: ASPIRIN 81 MG CHEW TAB CHEW ONE (21:45)
[2016-12-15] MEDS ORDERED: CLINDAMYCIN INJ 900 MG in SODIUM CHLORIDE 0.9% INJ 100 ML IV ONE (22:15)
--- NOTE | 2016-12-15 22:30 | RADRPT ---
EXAM DATE/TIME: 12/15/2016 21:26 [facility] COMPARISON: CHEST SINGLE AP, December 15, 2016, 20:31. INDICATIONS : Shortness of breath, possible allergic reaction. MEDICAL HISTORY : Congestive heart failure. Myocardial infarction. Diabetes mellitus type II. SURGICAL HISTORY : Cardiac ablation. ENCOUNTER: Subsequent ACUITY: 1 day PAIN SCORE: 0/10 LOCATION: Bilateral chest FINDINGS: A single view of the chest demonstrates the lungs to be symmetrically aerated without evidence of mas s, infiltrate or effusion. Mild cardiomegaly and slight increase in pulmonary vascularity. The cardio mediastinal contours are unremarkable. Osseous structures are intact. CONCLUSION: Stable chest. Ramses Vazquez MD on December 15, 2016 at 22:28 Board Certified Radiologist. This report was verified electronically.
[2016-12-16] VITALS (14 sets, daily range): BP systolic 90–107; BP diastolic 48–75; PULSE 90–128; RESP 13–27; TEMP 97.5–98.3; O2SAT 93–100
[2016-12-16] MEDS: MORPHINE SULFATE 4 MG/ML INJ IV PRN ×3 (01:44→23:28)
--- NOTE | 2016-12-16 02:41 | HHI.HP ---
HPI Service Critical Care Medicine Primary Care Physician Maricarmen Song MD Admission Diagnosis A FIB RVR w/ hypotension; elevated troponin I; hyperkalemia; celluli Diagnosis: Travel History International Travel<30 Days: No Contact w/Intl Traveler <30 Da: No Traveled to Known Affected Are: No History of Present Illness 41-year-old male presents by private transportation for evaluation of generalized weakness nausea vomiting and multiple areas of draining wounds and abscesses affecting the upper extremities. 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 Patient was last treated with antibiotic IV vancomycin during hemodialysis 2 weeks ago for multiple skin infections. Patient states continued to have ongoing skin issues specifically of the bilateral hands and upper back. Patient states he had no issues with his right BKA stump. Patient was seen in the emergency department 10/27/16 and Bactrim was added to his antibiotic regimen. Patient states that while he was receiving dialysis which is scheduled Friday and Fridays he was also receiving vancomycin IV. Review of Systems Constitutional: COMPLAINS OF: Diaphoretic episodes, Fatigue, Dizziness, DENIES : Fever, Weight gain, Weight loss, Chills, Change in appetite, Night Sweats Endocrine: DENIES: Heat/cold intolerance, Polydipsia, Polyuria, Polyphagia Eyes: DENIES: Blurred vision, Diplopia, Eye inflammation, Eye pain, Vision loss , Photosensitivity, Double Vision Ears, nose, mouth, throat: DENIES: Tinnitus, Hearing loss, Vertigo, Nasal discharge, Oral lesions, Throat pain, Hoarseness, Ear Pain, Running Nose, Epistaxis, Sinus Pain, Toothache, Odynophagia Respiratory: DENIES: Apneas, Cough, Snoring, Wheezing, Hemoptysis, Sputum production, Shortness of breath Cardiovascular: DENIES: Chest pain, Palpitations, Syncope, Dyspnea on Exertion , PND, Lower Extremity Edema, Orthopnea, Claudication Gastrointestinal: COMPLAINS OF: Nausea, Vomiting, DENIES: Abdominal pain, Black stools, Bloody stools, Constipation, Diarrhea, Difficulty Swallowing, Anorexia Genitourinary: DENIES: Sexual dysfunction, Urinary frequency, Urinary incontinence, Urgency, Hematuria, Dysuria, Nocturia, Penile Discharge, Testicular Pain, Testicular Swelling Musculoskeletal: DENIES: Joint pain, Muscle aches, Stiffness, Joint Swelling, Back pain, Neck pain Integumentary: DENIES: Abnormal pigmentation, Nail changes, Pruritus, Rash Hematologic/lymphatic: DENIES: Bruising, Lymphadenopathy Immunologic/allergic: DENIES: Eczema, Urticaria Neurologic: DENIES: Abnormal gait, Headache, Localized weakness, Paresthesias, Seizures, Speech Problems, Tremor, Poor Balance Psychiatric: DENIES: Anxiety, Confusion, Mood changes, Depression, Hallucinations, Agitation, Suicidal Ideation, Homicidal Ideation, Delusions Past Family Social History Allergies: Coded Allergies: Haldol (Verified Allergy, Severe, THROAT CLOSES UP, 12/15/16) Reglan (Verified Allergy, Severe, Irritability/Anxiety, 12/15/16) DYSTONIC REACTION Azithromycin (Verified Allergy, Intermediate, anxiety and itching, 12/15/16 ) Zosyn (Verified Allergy, Unknown, 12/16/16) "can't breathe" Clonidine (Verified Adverse Reaction, Severe, 12/15/16) PT STATES HE GOES COMATOSE OR GETS VERY CRAZY, MEMORY LOSS Dilaudid (Verified Adverse Reaction, Severe, becomes belligerent and out of control , 12/15/16) pt states does not have a allergy to this med Ativan (Verified Adverse Reaction, Intermediate, MAKES ANXIETY WORSE, 12/15) *MDRO Multi-Drug Resistant Organism (Verified Adverse Reaction, Unknown, ) MRSA (back)-10/13/16 MRSA (blood & ankle) - 04/2014; (buttock & chest) - 10/2015; (finger) - 12/23/15; (sputum) - 12/25/15; (Finger Wound) - 01/2016 MRSA PCR Screen POSITIVE - 01/10/15, 12/23/15, 02/25/16 MRSA & Klebsiella pneumoniae ESBL Pos (finger wound) - 02/07/16 Uncoded Allergies: ANTIEMETICS ( PER PT ALL ) (Adverse Reaction, Unknown, MAKES " ME CRAZY ", 11/21/15) Past Medical History End-stage renal disease on hemodialysis follows with Dr. Song Hypertension Diabetes Atrial fibrillation status post ablation Congestive heart failure with EF of 25%, refused AICD COPD Sleep apnea on home nighttime oxygen at 2 L Anemia of chronic disease Bipolar disorder Past Surgical History Left second finger amputation at the PIP joint Left third finger partial amputation Right BKA in 2012 Revision of right BKA for osteomyelitis and wound VAC placement Left forearm AV fistula. Recent left hand third digit amputation Reported Medications Reported Meds & Active Scripts Active Reported Calcium Acetate (Calcium Acetate (Phosphate Bin) 667 Mg Cap 4 Tab PO ACHS Hydrocodone-Acetaminophen 10-325 mg Tab 1 Tab PO Q4H PRN Novolog Inj (Insulin Aspart) 1,000 Unit/10 Ml Vial 0 SQ DIRECTED Sliding Scale as directed. Sensipar (Cinacalcet) 60 Mg Tab 60 Mg PO DAILY Xanax (Alprazolam) 0.5 Mg Tab 0.5 Mg PO HS PRN Aspirin 325 Mg Tab 325 Mg PO DAILY Omeprazole 20 Mg Tab 20 Mg PO DAILY Active Ordered Medications Current Medications Medications (Trade) Dose Ordered Sig/Ralph Route PRN Reason Start Time Stop Time Status Last Admin Dose Admin Diltiazem HCl/ Sodium Chloride (Cardizem Inj/NS Inj) 125 ml @ 0 mls/hr TITRATE IV 12/15/16 21:45 12/15/16 22:13 Morphine Sulfate (Morphine Inj) 2 mg Q3H PRN IV PAIN 12/16/16 01:30 12/16/16 01:44 Alprazolam (Xanax) 0.5 mg HS PRN PO ANXIETY 12/16/16 02:45 Aspirin (Aspirin) 325 mg DAILY PO 12/16/16 09:00 Cinacalcet (Sensipar) 60 mg DAILY PO 12/16/16 09:00 Pantoprazole Sodium (Protonix) 20 mg DAILY PO 12/16/16 09:00 Sodium Chloride (NS Flush) 2 ml UNSCH PRN .XX FLUSH AFTER USING IV ACCESS 12/16/16 03:00 Sodium Chloride (NS Flush) 2 ml BID .XX 12/16/16 09:00 Acetaminophen (Tylenol) 650 mg Q6H PRN PO PAIN 1-10 AND/OR FEVER >101F 12/16/16 03:00 Ondansetron HCl (Zofran Inj) 4 mg Q6H PRN IV NAUSEA OR VOMITING 12/16/16 03:00 Zolpidem Tartrate (Ambien) 5 mg HS PRN PO INSOMNIA 12/16/16 03:00 Heparin Sodium (Porcine) (Heparin Inj) 5,000 units Q8HR SQ 12/16/16 06:00 Miscellaneous Information 1 Q361D XX 12/16/16 03:00 Chlorhexidine Gluconate (Chlorhexidine 2% Cloth) 3 pack Taper DAILY@04 TOP 12/16/16 04:00 12/12/17 03:59 Chlorhexidine Gluconate (Chlorhexidine 2% Cloth) 3 pack UNSCH PRN TOP HYGIENIC CARE 12/16/16 03:00 Senna/Docusate Sodium (Janeth-Colace) 1 tab BID PO 12/16/16 09:00 Magnesium Hydroxide (Milk Of Magnesia Liq) 30 ml Q12H PRN PO MILD - MODERATE CONSTIPATION 12/16/16 03:00 Sennosides (Senokot) 17.2 mg Q12H PRN PO MODERATE - SEVERE CONSTIPATION 12/16/16 03:00 Bisacodyl (Dulcolax Supp) 10 mg DAILY PRN RECTAL SEVERE CONSITIPATION 12/16/16 03:00 Lactulose (Lactulose Liq) 30 ml DAILY PRN PO SEVERE CONSITIPATION 12/16/16 03:00 Family History No family history of early coronary artery disease or cancer Social History Smokes 2 cigarettes per day denies alcohol or illicit drug abuse Physical Exam Vital Signs Vital Signs Date Time Temp Pulse Resp B/P Pulse Ox O2 Delivery O2 Flow Rate FiO2 12/16/16 00:31 96 18 99 Nasal Cannula 2 12/16/16 00:29 96 18 107/48 99 12/15/16 23:56 89 18 90/53 99 Nasal Cannula 2 12/15/16 23:20 93 18 88/52 99 12/15/16 22:30 98 Nasal Cannula 2.00 12/15/16 22:16 102 18 118/60 100 12/15/16 21:36 106 18 102/75 99 Nasal Cannula 3 12/15/16 20:42 102 18 12/15/16 20:42 97.4 128 18 113/57 93 Nasal Cannula 3 12/15/16 20:39 93 Nasal Cannula 3 12/15/16 20:37 93 Nasal Cannula 3 12/15/16 19:44 97.4 130 18 156/64 98 Physical Exam GENERAL: Well-developed well-nourished male in no acute respiratory distress SKIN: Warm and dry. Multiple areas of various staged wounds to the bilateral hand/digits with various stages of healing and fluctuance of the left thumb IP with purulent drainage mild erythema of the right BKA stump nontender without increased warmth and isolated purpuric lesion to the left great toe distal aspect. HEAD: Normocephalic. EYES: No scleral icterus. No injection or drainage. NECK: Supple, trachea midline. No JVD or lymphadenopathy. CARDIOVASCULAR: Increased irregular irregular rate and rhythm without murmurs, gallops, or rubs. RESPIRATORY: Breath sounds equal bilaterally. No accessory muscle use. GASTROINTESTINAL: Abdomen soft, non-tender, nondistended. MUSCULOSKELETAL: No cyanosis, or edema. Right BKA. BACK: Nontender without obvious deformity. No CVA tenderness. Laboratory Laboratory Tests Test 12/15/16 20:25 White Blood Count 7.8 Red Blood Count 4.40 Hemoglobin 14.1 Hematocrit 43.8 Mean Corpuscular Volume 99.6 Mean Corpuscular Hemoglobin 32.0 Mean Corpuscular Hemoglobin 32.1 Concent Red Cell Distribution Width 19.4 Platelet Count 120 Mean Platelet Volume 8.4 Neutrophils (%) (Auto) 74.6 Lymphocytes (%) (Auto) 14.3 Monocytes (%) (Auto) 9.5 Eosinophils (%) (Auto) 1.1 Basophils (%) (Auto) 0.5 Neutrophils # (Auto) 5.9 Lymphocytes # (Auto) 1.1 Monocytes # (Auto) 0.7 Eosinophils # (Auto) 0.1 Basophils # (Auto) 0.0 CBC Comment DIFF FINAL Differential Comment Prothrombin Time 10.7 Prothromb Time International 1.0 Ratio Activated Partial 27.3 Thromboplast Time Sodium Level 132 Potassium Level 5.9 Chloride Level 98 Carbon Dioxide Level 18.2 Anion Gap 16 Blood Urea Nitrogen 74 Creatinine 11.00 Estimat Glomerular Filtration 5 Rate Random Glucose 246 Lactic Acid Level 2.0 Calcium Level 8.9 Magnesium Level 2.8 Total Bilirubin 1.1 Aspartate Amino Transf 20 (AST/SGOT) Alanine Aminotransferase 32 (ALT/SGPT) Alkaline Phosphatase 277 Troponin I 0.10 Total Protein 8.7 Albumin 3.4 Date/Time Procedure Status Source Growth 12/15/16 20:30 Aerobic Blood Culture Received Blood Peripheral Pending 12/15/16 20:30 Anaerobic Blood Culture Received Blood Peripheral Pending 12/15/16 20:25 Gram Stain Received Wound Finger Pending 12/15/16 20:25 Wound Culture Received Wound Finger Pending Result Diagram: 12/15/16202412/15/162024 Imaging Last 24 hours Impressions Chest X-Ray 12/15/162018 Signed Impressions: Service Date/Time: Thursday, December 15, 2016 20:31 - CONCLUSION: Mild cardiomegaly and increase in pulmonary vascularity. Ramses Vazquez MD Assessment and Plan Assessment and Plan Skin infections - Infectious disease consult End-stage renal disease - Hemodialysis per nephrology Hypertension - Hold home medications currently hypotensive Diabetes - Insulin sliding scale Atrial fibrillation status post ablation - Currently rate controlled - Aspirin Congestive heart failure with EF of 25%, refused AICD - Supportive care COPD - No exacerbation - No indication for steroid - DuoNeb scheduled and when necessary DVT GI prophylaxis - Teds SCDs subcutaneous heparin - Pepcid Critical Care: The total critical care time was 35 minutes. Time to perform other separately billable procedures was not included in the critical care time. Miguelito Agosto MD Dec 16, 2016 02:41
[2016-12-16] MEDS ORDERED: ACETAMINOPHEN/HYDROcodone 325 MG/10 MG TAB PO PRN (02:45)
[2016-12-16] MEDS ORDERED: ALPRAZolam 0.5 MG TAB PO PRN (02:45)
[2016-12-16] MEDS ORDERED: ALBUMIN HUMAN 5% 25 GM/500 ML BOTTLE IV ONE (02:45)
[2016-12-16] MEDS ORDERED: BISACODYL 10 MG SUPP RECTAL PRN (03:00)
[2016-12-16] MEDS ORDERED: MAGNESIUM HYDROXIDE SUSP 30 ML CUP PO PRN (03:00)
[2016-12-16] MEDS ORDERED: MISCELLANEOUS NURSING INFORMATION XX SCH (03:00)
[2016-12-16] MEDS ORDERED: LACTULOSE SYRUP 20 GM/30 ML CUP PO PRN (03:00)
[2016-12-16] MEDS ORDERED: SENNOSIDES 8.6 MG TAB PO PRN (03:00)
[2016-12-16] MEDS ORDERED: ACETAMINOPHEN 325 MG TAB PO PRN ×2 (03:00→09:00)
[2016-12-16] MEDS ORDERED: CHLORHEXIDINE GLUCONATE 2 % 1 PACK (2 CLOTHS) TOP PRN (03:00)
[2016-12-16] MEDS ORDERED: SODIUM CHLORIDE 0.9% FLUSH 10 ML FLUSH PRN (03:00)
[2016-12-16] MEDS ORDERED: ZOLPIDEM TARTRATE 5 MG TAB PO PRN (03:00)
[2016-12-16] MEDS ORDERED: ONDANSETRON HCL 4 MG/2 ML VIAL IV PRN ×2 (03:00→09:00)
[2016-12-16] MEDS: CHLORHEXIDINE GLUCONATE 2 % 1 PACK (2 CLOTHS) TOP SCH ×2 (04:00→04:07)
[2016-12-16] MEDS ORDERED: DEXTROSE 50% IN WATER 50 ML VIAL(D50) IV PRN (05:15)
[2016-12-16] MEDS ORDERED: GLUCAGON 1 MG/ML VIAL OTHER PRN (05:15)
[2016-12-16] MEDS: HEPARIN SODIUM - SQ 10,000 UNITS/ML VIAL SQ SCH ×3 (05:22→23:29)
[2016-12-16] MEDS ORDERED: ACETAMINOPHEN/HYDROcodone 325 MG/10 MG TAB PO ONE (05:30)
[2016-12-16] MEDS ORDERED: RESP: ALBUTEROL 2.5 MG/IPRATROPIUM 0.5 MG NEB (PRN) NEB (05:45)
[2016-12-16] MEDS ORDERED: RESP: ALBUTEROL 2.5 MG/IPRATROPIUM 0.5 MG NEB (SCH) NEB ONE (06:00)
[2016-12-16] MEDS: INSULIN ASPART SUPPLEMENTAL SCALE SQ SCH ×4 (06:30→21:00)
--- NOTE | 2016-12-16 07:02 | EKG ---
Date Performed: 12/15/2016 Time Performed: 20:31:52 PTAGE: 41 years EKG: ATRIAL FIBRILLATION WITH RAPID VENTRICULAR RESPONSE POOR R WAVE PROGRESSION NONSPECIFIC INF ERIOR AND LATERAL ST/T ABNORMALITY ABNORMAL ECG PREVIOUS TRACING : 04/10/2016 21.46 Compared to previous tracing, atrial fibrillation has repla yaya Sinus rhythm . DOCTOR: Hussain García Interpretating Date/Time 12/16/2016 07:00:47
[2016-12-16] MEDS: RESP: ALBUTEROL 2.5 MG/IPRATROPIUM 0.5 MG NEB (SCH) NEB ×3 (08:39→21:59)
[2016-12-16] MEDS ORDERED: SODIUM CHLOR 0.9% 1000 ML INJ 1,000 ML IV PRN ×3 (08:47)
[2016-12-16] MEDS ORDERED: MANNITOL 12.5 GM/50 ML VIAL IV PRN (09:00)
[2016-12-16] MEDS ORDERED: HEPARIN SODIUM - IV 10,000 UNITS/10 ML VIAL IVF PRN (09:00)
[2016-12-16] MEDS ORDERED: SODIUM CHLORIDE 0.9% FLUSH 10 ML FLUSH IV FLUSH SCH (09:00)
[2016-12-16] MEDS ORDERED: NITROGLYCERIN 0.4 MG SL 25 TABS/BTL SL PRN (09:00)
[2016-12-16] MEDS ORDERED: GELATIN 12 MM/7 MM FOAM TOP PRN (09:00)
[2016-12-16] MEDS ORDERED: SODIUM CHLORIDE 0.9% FLUSH 10 ML FLUSH IV FLUSH PRN (09:00)
[2016-12-16] MEDS ORDERED: diphenhydrAMINE HCL 25 MG CAP PO PRN (09:00)
[2016-12-16] MEDS ORDERED: ASPIRIN 81 MG CHEW TAB CHEW SCH (09:00)
[2016-12-16] MEDS ORDERED: ALBUMIN HUMAN 25% 25 GM/100 ML BAGP IV PRN (09:00)
--- NOTE | 2016-12-16 11:44 | PD.CONS ---
HPI Service Nephrology Consult Requested By Dr. Agosto Reason for Consult ESRD Primary Care Physician Maricarmen Song MD History of Present Illness 41 year old with history of diabetes, ESRD, Vascular disease A fib, admitted doing poorly, progressive vasculopathy right hand, left hand, calcium/PO4 deposit in skin, compliance issues Review of Systems Constitutional: COMPLAINS OF: Fatigue Musculoskeletal: COMPLAINS OF: Joint pain, Muscle aches, Stiffness, Joint Swelling, Back pain Psychiatric: COMPLAINS OF: Anxiety, Mood changes Past Family Social History Allergies: Coded Allergies: Haldol (Verified Allergy, Severe, THROAT CLOSES UP, 12/15/16) Reglan (Verified Allergy, Severe, Irritability/Anxiety, 12/15/16) DYSTONIC REACTION Azithromycin (Verified Allergy, Intermediate, anxiety and itching, 12/15/16 ) Zosyn (Verified Allergy, Unknown, 12/16/16) "can't breathe" Clonidine (Verified Adverse Reaction, Severe, 12/15/16) PT STATES HE GOES COMATOSE OR GETS VERY CRAZY, MEMORY LOSS Dilaudid (Verified Adverse Reaction, Severe, becomes belligerent and out of control , 12/15/16) pt states does not have a allergy to this med Ativan (Verified Adverse Reaction, Intermediate, MAKES ANXIETY WORSE, 12/15) *MDRO Multi-Drug Resistant Organism (Verified Adverse Reaction, Unknown, ) MRSA (back)-10/13/16 MRSA (blood & ankle) - 04/2014; (buttock & chest) - 10/2015; (finger) - 12/23/15; (sputum) - 12/25/15; (Finger Wound) - 01/2016 MRSA PCR Screen POSITIVE - 01/10/15, 12/23/15, 02/25/16, 12/16/16 MRSA & Klebsiella pneumoniae ESBL Pos (finger wound) - 02/07/16 Uncoded Allergies: ANTIEMETICS ( PER PT ALL ) (Adverse Reaction, Unknown, MAKES " ME CRAZY ", 11/21/15) Past Medical History Rt leg amputation Left middle finger amputation index finger partial amputation ESRD DM HTN HPTH CHF Past Surgical History AVF Left and as above Heart cath Ablation several amputations revision of stump r BKA Reported Medications Reported Meds & Active Scripts Active Reported Calcium Acetate (Calcium Acetate (Phosphate Bin) 667 Mg Cap 4 Tab PO ACHS Hydrocodone-Acetaminophen 10-325 mg Tab 1 Tab PO Q4H PRN Novolog Inj (Insulin Aspart) 1,000 Unit/10 Ml Vial 0 SQ DIRECTED Sliding Scale as directed. Sensipar (Cinacalcet) 60 Mg Tab 60 Mg PO DAILY Xanax (Alprazolam) 0.5 Mg Tab 0.5 Mg PO HS PRN Aspirin 325 Mg Tab 325 Mg PO DAILY Omeprazole 20 Mg Tab 20 Mg PO DAILY Active Ordered Medications Current Medications Medications (Trade) Dose Ordered Sig/Ralph Route Start Time Stop Time Status Last Admin (Cardizem Inj/NS Inj) 125 ml @ 0 mls/hr TITRATE IV 12/15/16 21:45 12/15/16 22:13 (Morphine Inj) 2 mg Q3H PRN IV 12/16/16 01:30 12/16/16 01:44 (Xanax) 0.5 mg HS PRN PO 12/16/16 02:45 (Aspirin) 325 mg DAILY PO 12/16/16 09:00 (Sensipar) 60 mg DAILY PO 12/16/16 09:00 (Protonix) 20 mg DAILY PO 12/16/16 09:00 (NS Flush) 2 ml UNSCH PRN .XX 12/16/16 03:00 (NS Flush) 2 ml BID .XX 12/16/16 09:00 (Tylenol) 650 mg Q6H PRN PO 12/16/16 03:00 (Zofran Inj) 4 mg Q6H PRN IV 12/16/16 03:00 (Ambien) 5 mg HS PRN PO 12/16/16 03:00 (Heparin Inj) 5,000 units Q8HR SQ 12/16/16 06:00 12/16/16 05:22 Miscellaneous Information 1 Q361D XX 12/16/16 03:00 (Chlorhexidine 2% Cloth) 3 pack Taper DAILY@04 TOP 12/16/16 04:00 12/12/17 03:59 (Chlorhexidine 2% Cloth) 3 pack UNSCH PRN TOP 12/16/16 03:00 (Janeth-Colace) 1 tab BID PO 12/16/16 09:00 (Milk Of Magnesia Liq) 30 ml Q12H PRN PO 12/16/16 03:00 (Senokot) 17.2 mg Q12H PRN PO 12/16/16 03:00 (Dulcolax Supp) 10 mg DAILY PRN RECTAL 12/16/16 03:00 (Lactulose Liq) 30 ml DAILY PRN PO 12/16/16 03:00 (D50w (Vial) Inj) 50 ml UNSCH PRN IV 12/16/16 05:15 (Glucagon Inj) 1 mg UNSCH PRN OTHER 12/16/16 05:15 Acetaminophen/ Hydrocodone Bitart 1 tab 1 tab Q4H PRN PO 12/16/16 05:45 (NS 1000 ml Inj) 1,000 ml @ 0 mls/hr Q0M PRN IV 12/16/16 08:47 Heparin Sodium (Porcine) 8000 units 8,000 units UNSCH PRN IVF 12/16/16 09:00 Sodium Chloride 1,000 ml @ 200 mls/hr Q5H PRN IV 12/16/16 08:47 (NS 1000 ml Inj) 1,000 ml @ 0 mls/hr Q0M PRN IV 12/16/16 08:47 (Mannitol Inj) 12.5 gm UNSCH PRN IV 12/16/16 09:00 (Albumin 25% Inj) 25 gm UNSCH PRN IV 12/16/16 09:00 (NS Flush) 5 ml UNSCH PRN IV FLUSH 12/16/16 09:00 (Zofran Inj) 4 mg UNSCH PRN IV 12/16/16 09:00 (Tylenol) 650 mg UNSCH PRN PO 12/16/16 09:00 (Benadryl) 25 mg UNSCH PRN PO 12/16/16 09:00 (Nitrostat Sl) 0.4 mg UNSCH PRN SL 12/16/16 09:00 (Gelfoam 12 Mm/7 Mm Top) 1 foam UNSCH PRN TOP 12/16/16 09:00 Family History noncontributory Social History hx of smoking Physical Exam Vital Signs Vital Signs Date Time Temp Pulse Resp B/P Pulse Ox O2 Delivery O2 Flow Rate FiO2 12/16/16 08:39 98 Nasal Cannula 2.00 12/16/16 08:00 97.6 90 21 95/60 96 12/16/16 07:00 99 Nasal Cannula 2.00 12/16/16 06:00 94 12/16/16 04:00 98 12/16/16 04:00 97.9 99 22 92/51 100 12/16/16 04:00 97.9 92 13 92/52 100 12/16/16 02:00 101 12/16/16 00:31 96 18 99 Nasal Cannula 2 12/16/16 00:29 96 18 107/48 99 12/15/16 23:56 89 18 90/53 99 Nasal Cannula 2 12/15/16 23:20 93 18 88/52 99 12/15/16 22:30 98 Nasal Cannula 2.00 12/15/16 22:16 102 18 118/60 100 12/15/16 21:36 106 18 102/75 99 Nasal Cannula 3 12/15/16 20:42 102 18 12/15/16 20:42 97.4 128 18 113/57 93 Nasal Cannula 3 12/15/16 20:39 93 Nasal Cannula 3 12/15/16 20:37 93 Nasal Cannula 3 12/15/16 19:44 97.4 130 18 156/64 98 Physical Exam GENERAL: Well-nourished, well-developed patient. SKIN: Warm and dry. HEAD: Normocephalic. EYES: No scleral icterus. No injection or drainage. NECK: Supple, trachea midline. No JVD or lymphadenopathy. CARDIOVASCULAR: Regular rate and rhythm without murmurs, gallops, or rubs. RESPIRATORY: Breath sounds equal bilaterally. No accessory muscle use. GASTROINTESTINAL: Abdomen soft, non-tender, nondistended. EXTREMITIES: No cyanosis, or edema. Rt BKA, skin lesions, ischemic fingers NEUROLOGICAL: Awake, alert, and oriented x 3. Non-focal. Laboratory Laboratory Tests Test 12/15/16 12/16/16 20:25 02:00 White Blood Count 7.8 Red Blood Count 4.40 Hemoglobin 14.1 Hematocrit 43.8 Mean Corpuscular Volume 99.6 Mean Corpuscular Hemoglobin 32.0 Mean Corpuscular Hemoglobin 32.1 Concent Red Cell Distribution Width 19.4 Platelet Count 120 Mean Platelet Volume 8.4 Neutrophils (%) (Auto) 74.6 Lymphocytes (%) (Auto) 14.3 Monocytes (%) (Auto) 9.5 Eosinophils (%) (Auto) 1.1 Basophils (%) (Auto) 0.5 Neutrophils # (Auto) 5.9 Lymphocytes # (Auto) 1.1 Monocytes # (Auto) 0.7 Eosinophils # (Auto) 0.1 Basophils # (Auto) 0.0 CBC Comment DIFF FINAL Differential Comment Prothrombin Time 10.7 Prothromb Time International 1.0 Ratio Activated Partial 27.3 Thromboplast Time Sodium Level 132 Potassium Level 5.9 Chloride Level 98 Carbon Dioxide Level 18.2 Anion Gap 16 Blood Urea Nitrogen 74 Creatinine 11.00 Estimat Glomerular Filtration 5 Rate Random Glucose 246 Lactic Acid Level 2.0 Calcium Level 8.9 Magnesium Level 2.8 Total Bilirubin 1.1 Aspartate Amino Transf 20 (AST/SGOT) Alanine Aminotransferase 32 (ALT/SGPT) Alkaline Phosphatase 277 Troponin I 0.10 Total Protein 8.7 Albumin 3.4 Nasal Screen MRSA (PCR) MRSA DETECTED Date/Time Procedure Status Source Growth 12/15/16 20:30 Aerobic Blood Culture - Preliminary Resulted Blood Peripheral NO GROWTH IN 1 DAY 12/15/16 20:30 Anaerobic Blood Culture - Preliminary Resulted Blood Peripheral NO GROWTH IN 1 DAY 12/15/16 20:25 Gram Stain - Final Resulted Wound Finger 12/15/16 20:25 Wound Culture Resulted Wound Finger Pending Result Diagram: 12/15/16202412/15/162024 Assessment and Plan Problem List: (1) End stage renal disease on dialysis Plan: seen during dialysis tolerating it well UF 3 L Next HD On Friday he is a M,WF continue Sensipar (2) Cellulitis of hand (3) Atrial fibrillation (4) PVD (peripheral vascular disease) Maricarmen Song MD Dec 16, 2016 11:44
[2016-12-16] MEDS ORDERED: DIGOXIN 0.5 MG/2 ML VIAL IV PUSH ONE (12:30)
[2016-12-16] MEDS: ACETAMINOPHEN/HYDROcodone 325 MG/10 MG TAB PO PRN ×2 (12:59→16:41)
[2016-12-16] MEDS: SODIUM CHLORIDE 0.9% FLUSH 10 ML FLUSH SCH ×2 (13:07→21:00)
[2016-12-16] MEDS: ASPIRIN 325 MG TAB PO SCH (13:07)
[2016-12-16] MEDS: SEVELAMER CARBONATE 800 MG TAB PO SCH ×2 (13:27→18:27)
[2016-12-16] MEDS: CINACALCET HYDROCHLORIDE 30 MG TAB PO SCH (13:27)
[2016-12-16] MEDS: PANTOPRAZOLE SOD 20 MG DELAYED RELEASE TAB PO SCH (13:33)
[2016-12-16] MEDS: DOCUSATE SODIUM 50 MG/SENNA 8.6 MG TAB PO SCH ×2 (13:33→21:00)
[2016-12-16] MEDS: DILTIAZEM HCL 60 MG TAB PO SCH ×3 (15:06→23:29)
--- NOTE | 2016-12-16 15:13 | PD.ID.CON ---
History of Present Illness Service ID Consult Requested By Reason for Consult Evaluation and Mment of bilateral UE ulcerations and gangrenous tips of fingers ? cellulitis ? osteomyelitis. Primary Care Physician Maricarmen Song MD Diagnoses: History of Present Illness Ms. Stahl is a 41-year-old male presents by private transportation for evaluation of generalized weakness, nausea, vomiting and multiple areas of draining wounds and abscesses affecting the upper extremities. Patient has extensive past medical history including CAD CHF cardiomyopathy atrial fibrillation hypertension renal failure with hemodialysis right BKA, amputation of the left index finger and left fifth digit, cardiac ablation, left forearm dialysis AV fistula graft and tobaccoism. Patient was last treated with antibiotic IV vancomycin during hemodialysis 2 weeks ago for multiple skin infections. Patient states continued to have ongoing skin issues specifically of the bilateral hands and upper back for several years. Patient states he had no issues with his right BKA stump. Patient was seen in the emergency department 10/27/16 and Bactrim was added to his antibiotic regimen. Patient states that while he was receiving dialysis which is scheduled Friday and Fridays he was also receiving vancomycin IV. At the time of my evaluation patient is in the intensive surgical care unit for management of atrial fibrillation and is currently planned to be on Cardene drip. Past Family Social History Allergies: Coded Allergies: Haldol (Verified Allergy, Severe, THROAT CLOSES UP, 12/15/16) Reglan (Verified Allergy, Severe, Irritability/Anxiety, 12/15/16) DYSTONIC REACTION Azithromycin (Verified Allergy, Intermediate, anxiety and itching, 12/15/16 ) Zosyn (Verified Allergy, Unknown, 12/16/16) "can't breathe" Clonidine (Verified Adverse Reaction, Severe, 12/15/16) PT STATES HE GOES COMATOSE OR GETS VERY CRAZY, MEMORY LOSS Dilaudid (Verified Adverse Reaction, Severe, becomes belligerent and out of control , 12/15/16) pt states does not have a allergy to this med Ativan (Verified Adverse Reaction, Intermediate, MAKES ANXIETY WORSE, 12/15) *MDRO Multi-Drug Resistant Organism (Verified Adverse Reaction, Unknown, ) MRSA (back)-10/13/16 MRSA (blood & ankle) - 04/2014; (buttock & chest) - 10/2015; (finger) - 12/23/15; (sputum) - 12/25/15; (Finger Wound) - 01/2016 MRSA PCR Screen POSITIVE - 01/10/15, 12/23/15, 02/25/16, 12/16/16 MRSA & Klebsiella pneumoniae ESBL Pos (finger wound) - 02/07/16 Uncoded Allergies: ANTIEMETICS ( PER PT ALL ) (Adverse Reaction, Unknown, MAKES " ME CRAZY ", 11/21/15) Past Medical History End-stage renal disease on hemodialysis follows with Dr. Song Hypertension Diabetes Atrial fibrillation status post ablation Congestive heart failure with EF of 25%, refused AICD COPD Sleep apnea on home nighttime oxygen at 2 L Anemia of chronic disease Bipolar disorder Past Surgical History Left second finger amputation at the PIP joint Left third finger partial amputation Right BKA in 2011 Revision of right BKA for osteomyelitis and wound VAC placement Left forearm AV fistula. Recent left hand third digit amputation Reported Medications Reported Meds & Active Scripts Active Reported Calcium Acetate (Calcium Acetate (Phosphate Bin) 667 Mg Cap 4 Tab PO ACHS Hydrocodone-Acetaminophen 10-325 mg Tab 1 Tab PO Q4H PRN Novolog Inj (Insulin Aspart) 1,000 Unit/10 Ml Vial 0 SQ DIRECTED Sliding Scale as directed. Sensipar (Cinacalcet) 60 Mg Tab 60 Mg PO DAILY Xanax (Alprazolam) 0.5 Mg Tab 0.5 Mg PO HS PRN Aspirin 325 Mg Tab 325 Mg PO DAILY Omeprazole 20 Mg Tab 20 Mg PO DAILY Active Ordered Medications Current Medications Medications (Trade) Dose Ordered Sig/Ralph Route Start Time Stop Time Status Last Admin (Cardizem Inj/NS Inj) 125 ml @ 0 mls/hr TITRATE IV 12/15/16 21:45 12/15/16 22:13 (Morphine Inj) 2 mg Q3H PRN IV 12/16/16 01:30 12/16/16 16:42 (Xanax) 0.5 mg HS PRN PO 12/16/16 02:45 (Aspirin) 325 mg DAILY PO 12/16/16 09:00 12/16/16 13:07 (Sensipar) 60 mg DAILY PO 12/16/16 09:00 12/16/16 13:27 (Protonix) 20 mg DAILY PO 12/16/16 09:00 12/16/16 13:33 (NS Flush) 2 ml UNSCH PRN .XX 12/16/16 03:00 (NS Flush) 2 ml BID .XX 12/16/16 09:00 12/16/16 13:07 (Tylenol) 650 mg Q6H PRN PO 12/16/16 03:00 (Zofran Inj) 4 mg Q6H PRN IV 12/16/16 03:00 (Ambien) 5 mg HS PRN PO 12/16/16 03:00 (Heparin Inj) 5,000 units Q8HR SQ 12/16/16 06:00 12/16/16 15:06 Miscellaneous Information 1 Q361D XX 12/16/16 03:00 (Chlorhexidine 2% Cloth) 3 pack Taper DAILY@04 TOP 12/16/16 04:00 12/12/17 03:59 (Chlorhexidine 2% Cloth) 3 pack UNSCH PRN TOP 12/16/16 03:00 (Janeth-Colace) 1 tab BID PO 12/16/16 09:00 12/16/16 13:33 (Milk Of Magnesia Liq) 30 ml Q12H PRN PO 12/16/16 03:00 (Senokot) 17.2 mg Q12H PRN PO 12/16/16 03:00 (Dulcolax Supp) 10 mg DAILY PRN RECTAL 12/16/16 03:00 (Lactulose Liq) 30 ml DAILY PRN PO 12/16/16 03:00 (D50w (Vial) Inj) 50 ml UNSCH PRN IV 12/16/16 05:15 (Glucagon Inj) 1 mg UNSCH PRN OTHER 12/16/16 05:15 Acetaminophen/ Hydrocodone Bitart 1 tab 1 tab Q4H PRN PO 12/16/16 05:45 12/16/16 16:41 (NS 1000 ml Inj) 1,000 ml @ 0 mls/hr Q0M PRN IV 12/16/16 08:47 Heparin Sodium (Porcine) 8000 units 8,000 units UNSCH PRN IVF 12/16/16 09:00 Sodium Chloride 1,000 ml @ 200 mls/hr Q5H PRN IV 12/16/16 08:47 (NS 1000 ml Inj) 1,000 ml @ 0 mls/hr Q0M PRN IV 12/16/16 08:47 (Mannitol Inj) 12.5 gm UNSCH PRN IV 12/16/16 09:00 (Albumin 25% Inj) 25 gm UNSCH PRN IV 12/16/16 09:00 (NS Flush) 5 ml UNSCH PRN IV FLUSH 12/16/16 09:00 (Zofran Inj) 4 mg UNSCH PRN IV 12/16/16 09:00 (Tylenol) 650 mg UNSCH PRN PO 12/16/16 09:00 (Benadryl) 25 mg UNSCH PRN PO 12/16/16 09:00 (Nitrostat Sl) 0.4 mg UNSCH PRN SL 12/16/16 09:00 (Gelfoam 12 Mm/7 Mm Top) 1 foam UNSCH PRN TOP 12/16/16 09:00 (Renvela) 2,400 mg TIDAC PO 12/16/16 12:00 12/16/16 13:27 (Cardizem) 60 mg Q6HR PO 12/16/16 15:00 12/16/16 15:06 Family History reviewed and NC to current ID problems. Social History Denies alcohol, smoking or drugs. Physical Exam Vital Signs Vital Signs Date Time Temp Pulse Resp B/P Pulse Ox O2 Delivery O2 Flow Rate FiO2 12/16/16 08:39 98 Nasal Cannula 2.00 12/16/16 08:00 97.6 90 21 95/60 96 12/16/16 07:00 99 Nasal Cannula 2.00 12/16/16 06:00 94 12/16/16 04:00 98 12/16/16 04:00 97.9 99 22 92/51 100 12/16/16 04:00 97.9 92 13 92/52 100 12/16/16 02:00 101 12/16/16 00:31 96 18 99 Nasal Cannula 2 12/16/16 00:29 96 18 107/48 99 12/15/16 23:56 89 18 90/53 99 Nasal Cannula 2 12/15/16 23:20 93 18 88/52 99 12/15/16 22:30 98 Nasal Cannula 2.00 12/15/16 22:16 102 18 118/60 100 12/15/16 21:36 106 18 102/75 99 Nasal Cannula 3 12/15/16 20:42 102 18 12/15/16 20:42 97.4 128 18 113/57 93 Nasal Cannula 3 12/15/16 20:39 93 Nasal Cannula 3 12/15/16 20:37 93 Nasal Cannula 3 12/15/16 19:44 97.4 130 18 156/64 98 Physical Exam GENERAL: This is a well-nourished, well-developed patient, in no apparent distress. SKIN: No rashes, ecchymoses or lesions. Cool and dry. HEAD: Atraumatic. Normocephalic. No temporal or scalp tenderness. EYES: Pupils equal round and reactive. Extraocular motions intact. No scleral icterus. No injection or drainage. ENT: Nose without bleeding, purulent drainage or septal hematoma. Throat without erythema, tonsillar hypertrophy or exudate. Uvula midline. Airway patent. NECK: Trachea midline. No JVD or lymphadenopathy. Supple, nontender, no meningeal signs. CARDIOVASCULAR: Regular rate and rhythm without murmurs, gallops, or rubs. RESPIRATORY: Clear to auscultation. Breath sounds equal bilaterally. No wheezes , rales, or rhonchi. GASTROINTESTINAL: Abdomen soft, non-tender, nondistended. No hepato-splenomegaly , or palpable masses. No guarding. MUSCULOSKELETAL: Left UE with ulceration ? down to bone. Right middle finger and index finger with tips with unhealthy granulation tissue ? bone involvement. Right BKA site ok with no e.o infection. NEUROLOGICAL: Awake and alert. Grossly non focal Psych: agitated and wants to go to other hospital IV line sites with no e.o infection. Laboratory Laboratory Tests Test 12/15/16 12/16/16 20:25 02:00 White Blood Count 7.8 Red Blood Count 4.40 Hemoglobin 14.1 Hematocrit 43.8 Mean Corpuscular Volume 99.6 Mean Corpuscular Hemoglobin 32.0 Mean Corpuscular Hemoglobin 32.1 Concent Red Cell Distribution Width 19.4 Platelet Count 120 Mean Platelet Volume 8.4 Neutrophils (%) (Auto) 74.6 Lymphocytes (%) (Auto) 14.3 Monocytes (%) (Auto) 9.5 Eosinophils (%) (Auto) 1.1 Basophils (%) (Auto) 0.5 Neutrophils # (Auto) 5.9 Lymphocytes # (Auto) 1.1 Monocytes # (Auto) 0.7 Eosinophils # (Auto) 0.1 Basophils # (Auto) 0.0 CBC Comment DIFF FINAL Differential Comment Prothrombin Time 10.7 Prothromb Time International 1.0 Ratio Activated Partial 27.3 Thromboplast Time Sodium Level 132 Potassium Level 5.9 Chloride Level 98 Carbon Dioxide Level 18.2 Anion Gap 16 Blood Urea Nitrogen 74 Creatinine 11.00 Estimat Glomerular Filtration 5 Rate Random Glucose 246 Lactic Acid Level 2.0 Calcium Level 8.9 Magnesium Level 2.8 Total Bilirubin 1.1 Aspartate Amino Transf 20 (AST/SGOT) Alanine Aminotransferase 32 (ALT/SGPT) Alkaline Phosphatase 277 Troponin I 0.10 Total Protein 8.7 Albumin 3.4 Nasal Screen MRSA (PCR) MRSA DETECTED Date/Time Procedure Status Source Growth 12/15/16 20:30 Aerobic Blood Culture - Preliminary Resulted Blood Peripheral NO GROWTH IN 1 DAY 12/15/16 20:30 Anaerobic Blood Culture - Preliminary Resulted Blood Peripheral NO GROWTH IN 1 DAY 12/15/16 20:25 Gram Stain - Final Resulted Wound Finger 12/15/16 20:25 Wound Culture Resulted Wound Finger Pending Result Diagram: 12/15/16202412/15/162024 Imaging Last Impressions Chest X-Ray 12/15/162018 Signed Impressions: Service Date/Time: Thursday, December 15, 2016 20:31 - CONCLUSION: Mild cardiomegaly and increase in pulmonary vascularity. Ramses Vazquez MD Assessment and Plan Assessment and Plan Bilateral UE superficial ulcerations and blackening ? gangrene ? 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 Recs No signs of sepsis. Has local skin lesions ? 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 Rashid Ballesteros Hand surgeon to assess need for debridement and imaging. Observe off antibiotics for now. Superficial wound culture will likely be positive but would not recommend treating it. Consult Hand surgery Rashid Swartz Will follow along with you. Fariba King MD Dec 16, 2016 15:13
[2016-12-16 15:55] LABS: ALT (GPT) 27 U/L (12-78); ANION GAP 16 MEQ/L (5-15); AST (GOT) 13 U/L (15-37); BICARBONATE 22.7 MEQ/L (21.0-32.0); BLOOD UREA NITROGEN 49 MG/DL (7-18); CHLORIDE 95 MEQ/L (98-107); GLOMERULAR FILTRATION RATE 8 ML/MIN (>89); SODIUM (NA) 134 MEQ/L (136-145)
[2016-12-16 15:56] LABS: ALKALINE PHOSPHATASE 221 U/L (45-117); TOTAL BILIRUBIN ADULT 1.2 MG/DL (0.2-1.0)
--- NOTE | 2016-12-16 18:36 | RADRPT ---
EXAM DATE/TIME: 12/16/2016 18:20 [facility] COMPARISON: No previous studies available for comparison. INDICATIONS : Right hand pain. MEDICAL HISTORY : Myocardial infarction. Hypertension. Renal failure, chronic.Diabetes. SURGICAL HISTORY : None. ENCOUNTER: Initial ACUITY: 3 days PAIN SCORE: 5/10 LOCATION: Right hand. FINDINGS: Three view examination of the right hand demonstrates periosteal reaction distal phalanx of fourth d igit with destructive changes. Vascular calcifications. No fracture. CONCLUSION: Destructive changes distal phalanx fourth digit concerning for osteomyelitis. Ramses Vazquez MD on December 16, 2016 at 18:34 Board Certified Radiologist. This report was verified electronically.
--- NOTE | 2016-12-16 18:36 | RADRPT ---
EXAM DATE/TIME: 12/16/2016 18:15 [facility] COMPARISON: No previous studies available for comparison. INDICATIONS : Left hand pain. MEDICAL HISTORY : Myocardial infarction. Hypertension. Renal failure, chronic.Diabetes SURGICAL HISTORY : 3rd digit amputation. 2nd digit partial amputation. ENCOUNTER: Initial ACUITY: 3 days PAIN SCORE: 5/10 LOCATION: Left hand. FINDINGS: Three view examination of the left hand demonstrates amputation of the third digit and the majority of the second digit. Vascular calcifications. No fracture. There is soft tissue swelling of the secon d digit. CONCLUSION: Postsurgical changes. No fracture or periosteal reaction. Ramses Vazquez MD on December 16, 2016 at 18:33 Board Certified Radiologist. This report was verified electronically.
[2016-12-16] MEDS ORDERED: MISC INFORMATION OTHER ONE (20:00)
[2016-12-16] MEDS ORDERED: DEXTROSE 50% IN WATER 50 ML VIAL(D50) IV PUSH PRN (20:00)
[2016-12-16] MEDS ORDERED: INSULIN REGULAR 100 UNITS/100 ML NS ALGORITHM 2 IV SCH ×2 (20:00)
[2016-12-17] VITALS (14 sets, daily range): BP systolic 89–115; BP diastolic 50–66; PULSE 86–115; RESP 16–33; TEMP 97.4–97.6; O2SAT 95–100
[2016-12-17] MEDS: RESP: ALBUTEROL 2.5 MG/IPRATROPIUM 0.5 MG NEB (SCH) NEB ×4 (03:17→21:47)
[2016-12-17] MEDS: CHLORHEXIDINE GLUCONATE 2 % 1 PACK (2 CLOTHS) TOP SCH (04:00)
[2016-12-17 05:14] LABS: AUTOMATED NEUTROPHIL # 5.2 TH/MM3 (1.8-7.7); BASOPHIL # 0.4 TH/MM3 (0-0.2); EOSINOPHIL # 0.1 TH/MM3 (0-0.4); EOSINOPHIL % 1.2 % (0.0-4.0); HEMATOCRIT 39.2 % (39.0-51.0); LYMPH % 7.6 % (9.0-44.0); LYMPHOCYTE # 0.5 TH/MM3 (1.0-4.8); MEAN CORPUSCULAR HEMOGLOBIN 33.1 PG (27.0-34.0); MEAN CORPUSCULAR HGB CONC 32.5 % (32.0-36.0); MONO % 8.7 % (0.0-8.0); NEUT % 76.5 % (16.0-70.0); PLATELET COUNT 98 TH/MM3 (150-450); RED BLOOD COUNT 3.85 MIL/MM3 (4.50-5.90); RED CELL DISTRIBUTION WIDTH 20.3 % (11.6-17.2); WHITE BLOOD COUNT 6.7 TH/MM3 (4.0-11.0)
[2016-12-17 05:25] LABS: PROTHROMBIN TIME - PATIENT 11.4 SEC (9.8-11.6)
[2016-12-17 05:26] LABS: HEMO FLAGS AUTO DIFF
[2016-12-17] MEDS: HEPARIN SODIUM - SQ 10,000 UNITS/ML VIAL SQ SCH ×3 (06:00→22:00)
[2016-12-17] MEDS: DILTIAZEM HCL 60 MG TAB PO SCH ×3 (06:26→18:00)
[2016-12-17 06:37] LABS: ALKALINE PHOSPHATASE 221 U/L (45-117); ALT (GPT) 26 U/L (12-78); ANION GAP 13 MEQ/L (5-15); AST (GOT) 10 U/L (15-37); BICARBONATE 23.4 MEQ/L (21.0-32.0); BLOOD UREA NITROGEN 60 MG/DL (7-18); CHLORIDE 94 MEQ/L (98-107); GLOMERULAR FILTRATION RATE 7 ML/MIN (>89); MAGNESIUM 2.7 MG/DL (1.5-2.5); SODIUM (NA) 130 MEQ/L (136-145); TOTAL BILIRUBIN ADULT 1.3 MG/DL (0.2-1.0)
[2016-12-17 06:56] LABS: PLATELET ESTIMATE SMEAR LOW (NORMAL); PLATELET MORPHOLOGY ENLARGED (NORMAL)
[2016-12-17 06:57] LABS: SCAN/DIFF AUTO DIFF CONFIRMED
[2016-12-17] MEDS: INSULIN ASPART SUPPLEMENTAL SCALE SQ SCH ×4 (07:00→21:00)
[2016-12-17] MEDS: MORPHINE SULFATE 4 MG/ML INJ IV PRN ×3 (08:12→20:42)
[2016-12-17] MEDS ORDERED: DEXTROSE 50% IN WATER 50 ML SYRINGE ONE (08:38)
[2016-12-17] MEDS: SODIUM CHLORIDE 0.9% FLUSH 10 ML FLUSH SCH ×2 (09:00→20:45)
[2016-12-17] MEDS: MUPIROCIN 2% OINT 1 APPLIC/GM SYR NASAL SCH ×2 (09:00→20:29)
[2016-12-17] MEDS: DOCUSATE SODIUM 50 MG/SENNA 8.6 MG TAB PO SCH ×2 (09:00→20:45)
[2016-12-17] MEDS ORDERED: AZTREONAM 1,000 MG/NS 100 ML IV SCH ×2 (10:00)
[2016-12-17] MEDS: DEXT 5%-NACL 0.9% 1000 ML INJ 1,000 ML IV SCH ×2 (10:15→23:35)
[2016-12-17] MEDS ORDERED: DEXTROSE 50% IN WATER 50 ML VIAL(D50) IV PUSH ONE (10:15)
[2016-12-17] MEDS: SEVELAMER CARBONATE 800 MG TAB PO SCH ×3 (10:45→17:00)
[2016-12-17] MEDS: CINACALCET HYDROCHLORIDE 30 MG TAB PO SCH (10:45)
[2016-12-17] MEDS: PANTOPRAZOLE SOD 20 MG DELAYED RELEASE TAB PO SCH (10:45)
[2016-12-17] MEDS: ASPIRIN 325 MG TAB PO SCH (10:46)
--- NOTE | 2016-12-17 13:21 | HHI.NPPN ---
Subjective History of Present Illness 41 year old male with ESRD, DM, PVD bilateral vascular disease in hands Review of Systems General Constitutional: Fatigue Objective Data Data 12/16/16 12/17/16 18:59 06:59 Intake Total 480 ml 400 ml Output Total 3000 ml Balance -2520 ml 400 ml Intake Oral 480 ml 400 ml Output Hemodialysis 3000 ml # Voids 0 Vital Signs Date Time Temp Pulse Resp B/P Pulse Ox O2 Delivery O2 Flow Rate FiO2 12/17/16 12:00 86 12/17/16 12:00 98 Nasal Cannula 3.00 12/17/16 10:00 89 12/17/16 08:56 100 21 12/17/16 08:00 89 12/17/16 07:00 100 Nasal Cannula 2.00 12/17/16 06:00 101 12/17/16 04:00 103 12/17/16 04:00 97.4 103 16 115/51 97 12/17/16 02:00 99 12/17/16 00:00 98 12/17/16 00:00 97.4 98 16 91/53 96 12/16/16 22:00 97 12/16/16 21:59 93 Nasal Cannula 3.00 12/16/16 20:00 98.3 93 18 100/59 96 12/16/16 20:00 93 12/16/16 19:00 96 Nasal Cannula 2.00 12/16/16 18:00 120 12/16/16 16:00 114 12/16/16 16:00 97.5 114 14 90/52 100 12/16/16 14:00 128 -: 12/17/16 0359 12/17/16 0359 Physical Exam General Appearance: Well Developed Neck Neck Exam: Neck Supple Pulmonary Resp Exam: Clear Bilaterally, Breath Sounds Equal Cardiology CV Exam: Regular Gastrointestinal/Abdomen GI Exam: Soft, Non-Tender, Bowel Sounds Present Extremeties Extremities Exam: Moderate Edema Assessment/Plan Problem List: (1) End stage renal disease on dialysis Plan: he has high PO4 on Renvela/Sensipar HPTH discussed again PVD progression, he has vasculopathy progressive disease poor prognosis await hand surgery HD tomorrow continue Sensipar (2) Cellulitis of hand (3) Atrial fibrillation Plan: treated with Diltiazem (4) PVD (peripheral vascular disease) Plan: severe prognosis poor Maricarmen Song MD Dec 17, 2016 13:21
[2016-12-17] MEDS ORDERED: HYDROmorphone HCL PF 1 MG/ML VIAL IV PUSH ONE (15:15)
--- NOTE | 2016-12-17 16:21 | HHI.CCPN ---
Subjective Remarks/Hospital Course 41-year-old male presents by private transportation for evaluation of generalized weakness nausea vomiting and multiple areas of draining wounds and abscesses affecting the upper extremities. Patient has extensive past medical history including CAD CHF cardiomyopathy atrial fibrillation hypertension renal failure with hemodialysis right BKA amputation of the left index finger and left fifth digit, cardiac ablation, left forearm dialysis AV fistula graft and tobaccoism. Patient was last treated with antibiotic IV vancomycin during hemodialysis 2 weeks ago for multiple skin infections. Patient states continued to have ongoing skin issues specifically of the bilateral hands and upper back. Patient states he had no issues with his right BKA stump. Patient was seen in the emergency department 10/27/16 and Bactrim was added to his antibiotic regimen. Patient states that while he was receiving dialysis which is scheduled Friday and Fridays he was also receiving vancomycin IV. 12/17: 05/29 bottle GNR, wound culture GNR. Azactam started STAT due to PCN allergy. Heart rate improved, 90-100. Nephrology following for HD Objective Vital Signs Date Time Temp Pulse Resp B/P Pulse Ox O2 Delivery O2 Flow Rate FiO2 12/17/16 12:00 86 12/17/16 12:00 98 Nasal Cannula 3.00 12/17/16 08:56 21 12/17/16 08:00 97.6 19 89/66 Intake and Output 12/16/16 12/16/16 12/17/16 08:00 16:00 00:00 Intake Total 200 ml 480 ml 300 ml Output Total 3000 ml Balance 200 ml -2520 ml 300 ml Result Diagram: 12/17/16 0359 12/17/16 0359 Imaging Last 24 hours Impressions Chest X-Ray 12/15/16 2019 Signed Impressions: Service Date/Time: Thursday, December 15, 2016 20:31 - CONCLUSION: Mild cardiomegaly and increase in pulmonary vascularity. Ramses Vazquez MD Objective Remarks GENERAL: Well-developed well-nourished male in no acute respiratory distress SKIN/MSK: Warm and dry. Multiple areas of various staged wounds to the bilateral hand/digits with various stages of healing and fluctuance of the left thumb IP with purulent drainage, mild erythema of the right BKA stump nontender and isolated purpuric lesion to the left great toe distal aspect. HEAD: Normocephalic. EYES: No scleral icterus. No injection or drainage. NECK: Supple, trachea midline. No JVD or lymphadenopathy. CARDIOVASCULAR: Irregular irregular rate and rhythm without murmurs, gallops, or rubs. RESPIRATORY: Breath sounds equal bilaterally. No accessory muscle use. GASTROINTESTINAL: Abdomen soft, non-tender, nondistended. BACK: Nontender without obvious deformity. No CVA tenderness. NEURO: Alert awake oriented. No focal deficits A/P Assessment and Plan Skin infections - Infectious disease consulted - Wound culture and 1/4 blood culture with GNR - Azactam started- renally dosed - hand surgery consulted- possible OR in am - R hand 4 th digit distal phalanx Xray showing destructive changes concerning for ostial myelitis End-stage renal disease - Hemodialysis per nephrology Hypertension - Hold home medications currently hypotensive Diabetes - Insulin sliding scale Atrial fibrillation status post ablation - Currently rate controlled on Cardizem - Aspirin Congestive heart failure with EF of 25%, refused AICD - Supportive care COPD - No exacerbation - No indication for steroid - DuoNeb scheduled and when necessary DVT GI prophylaxis - Teds SCDs subcutaneous heparin - Pepcid Critical Care: Level 3 Consult [facility] to assume care in am. continue ICU care Flor Chavis MD Dec 17, 2016 16:21
--- NOTE | 2016-12-17 17:11 | HHI.IDPN ---
Subjective Subjective Remarks Ms. Stahl is a 41-year-old male presents by private transportation for evaluation of generalized weakness, nausea, vomiting and multiple areas of draining wounds and abscesses affecting the upper extremities. Patient has extensive past medical history including CAD CHF cardiomyopathy atrial fibrillation hypertension renal failure with hemodialysis right BKA, amputation of the left index finger and left fifth digit, cardiac ablation, left forearm dialysis AV fistula graft and tobaccoism. Patient was last treated with antibiotic IV vancomycin during hemodialysis 2 weeks ago for multiple skin infections. Patient states continued to have ongoing skin issues specifically of the bilateral hands and upper back for several years. Patient states he had no issues with his right BKA stump. Patient was seen in the emergency department 10/27/16 and Bactrim was added to his antibiotic regimen. Patient states that while he was receiving dialysis which is scheduled Friday and Fridays he was also receiving vancomycin IV. At the time of my evaluation patient is in the intensive surgical care unit for management of atrial fibrillation and is currently planned to be on Cardene drip. Lines Line sites with no e.o infection. Past Medical History End-stage renal disease on hemodialysis follows with Dr. Song Hypertension Diabetes Atrial fibrillation status post ablation Congestive heart failure with EF of 25%, refused AICD COPD Sleep apnea on home nighttime oxygen at 2 L Anemia of chronic disease Bipolar disorder Left second finger amputation at the PIP joint Left third finger partial amputation Right BKA in 2011 Revision of right BKA for osteomyelitis and wound VAC placement Left forearm AV fistula. Recent left hand third digit amputation Allergies: Coded Allergies: Haldol (Verified Allergy, Severe, THROAT CLOSES UP, 12/15/16) Reglan (Verified Allergy, Severe, Irritability/Anxiety, 12/15/16) DYSTONIC REACTION Azithromycin (Verified Allergy, Intermediate, anxiety and itching, 12/15/16 ) Zosyn (Verified Allergy, Unknown, 12/17/16) Pt reports he is not sure. Thinks he may have recd Keflex as outpt. Clonidine (Verified Adverse Reaction, Severe, 12/15/16) PT STATES HE GOES COMATOSE OR GETS VERY CRAZY, MEMORY LOSS Dilaudid (Verified Adverse Reaction, Severe, becomes belligerent and out of control , 12/15/16) pt states does not have a allergy to this med Ativan (Verified Adverse Reaction, Intermediate, MAKES ANXIETY WORSE, 12/15) *MDRO Multi-Drug Resistant Organism (Verified Adverse Reaction, Unknown, ) MRSA (back)-10/13/16 MRSA (blood & ankle) - 04/2014; (buttock & chest) - 10/2015; (finger) - 12/23/15; (sputum) - 12/25/15; (Finger Wound) - 01/2016 MRSA PCR Screen POSITIVE - 01/10/15, 12/23/15, 02/25/16, 12/16/16 MRSA & Klebsiella pneumoniae ESBL Pos (finger wound) - 02/07/16 Uncoded Allergies: ANTIEMETICS ( PER PT ALL ) (Adverse Reaction, Unknown, MAKES " ME CRAZY ", 11/21/15) Objective . Vital Signs Date Time Temp Pulse Resp B/P Pulse Ox O2 Delivery O2 Flow Rate FiO2 12/17/16 16:00 97.4 86 33 102/50 95 12/17/16 16:00 86 12/17/16 14:00 104 12/17/16 12:00 86 12/17/16 12:00 98 Nasal Cannula 3.00 12/17/16 12:00 97.4 96 25 92/57 98 12/17/16 10:00 89 12/17/16 08:56 100 21 12/17/16 08:00 97.6 94 19 89/66 96 12/17/16 08:00 89 12/17/16 07:00 100 Nasal Cannula 2.00 12/17/16 06:00 101 12/17/16 04:00 103 12/17/16 04:00 97.4 103 16 115/51 97 12/17/16 02:00 99 12/17/16 00:00 98 12/17/16 00:00 97.4 98 16 91/53 96 12/16/16 22:00 97 12/16/16 21:59 93 Nasal Cannula 3.00 12/16/16 20:00 98.3 93 18 100/59 96 12/16/16 20:00 93 12/16/16 19:00 96 Nasal Cannula 2.00 12/16/16 18:00 120 12/16/16 12/16/16 12/17/16 15:00 23:00 07:00 Intake Total 480 ml 300 ml 100 ml Output Total 3000 ml Balance -2520 ml 300 ml 100 ml Intake Oral 480 ml 300 ml 100 ml Output Hemodialysis 3000 ml # Voids 0 0 . Laboratory Tests Test 12/15/16 12/17/16 20:25 03:59 White Blood Count 7.8 TH/MM3 6.7 TH/MM3 Red Blood Count 4.40 MIL/MM3 3.85 MIL/MM3 Hemoglobin 14.1 GM/DL 12.7 GM/DL Hematocrit 43.8 % 39.2 % Mean Corpuscular Volume 99.6 FL 102.0 FL Mean Corpuscular Hemoglobin 32.0 PG 33.1 PG Mean Corpuscular Hemoglobin 32.1 % 32.5 % Concent Red Cell Distribution Width 19.4 % 20.3 % Platelet Count 120 TH/MM3 98 TH/MM3 Mean Platelet Volume 8.4 FL 9.0 FL Neutrophils (%) (Auto) 74.6 % 76.5 % Lymphocytes (%) (Auto) 14.3 % 7.6 % Monocytes (%) (Auto) 9.5 % 8.7 % Eosinophils (%) (Auto) 1.1 % 1.2 % Basophils (%) (Auto) 0.5 % 6.0 % Neutrophils # (Auto) 5.9 TH/MM3 5.2 TH/MM3 Lymphocytes # (Auto) 1.1 TH/MM3 0.5 TH/MM3 Monocytes # (Auto) 0.7 TH/MM3 0.6 TH/MM3 Eosinophils # (Auto) 0.1 TH/MM3 0.1 TH/MM3 Basophils # (Auto) 0.0 TH/MM3 0.4 TH/MM3 CBC Comment DIFF FINAL AUTO DIFF Differential Comment AUTO DIFF CONFIRMED Platelet Estimate LOW Platelet Morphology Comment ENLARGED Red Cell Morphology Comment NORMAL Laboratory Tests Test 12/15/16 12/16/16 12/17/16 20:25 15:08 03:59 Sodium Level 132 MEQ/L 134 MEQ/L 130 MEQ/L Potassium Level 5.9 MEQ/L 4.0 MEQ/L 4.0 MEQ/L Chloride Level 98 MEQ/L 95 MEQ/L 94 MEQ/L Carbon Dioxide Level 18.2 MEQ/L 22.7 MEQ/L 23.4 MEQ/L Anion Gap 16 MEQ/L 16 MEQ/L 13 MEQ/L Blood Urea Nitrogen 74 MG/DL 49 MG/DL 60 MG/DL Creatinine 11.00 MG/DL 7.85 MG/DL 8.60 MG/DL Estimat Glomerular Filtration 5 ML/MIN 8 ML/MIN 7 ML/MIN Rate Random Glucose 246 MG/DL 389 MG/DL 162 MG/DL Lactic Acid Level 2.0 mmol/L Calcium Level 8.9 MG/DL 8.6 MG/DL 8.1 MG/DL Magnesium Level 2.8 MG/DL 2.7 MG/DL Total Bilirubin 1.1 MG/DL 1.2 MG/DL 1.3 MG/DL Aspartate Amino Transf 20 U/L 13 U/L 10 U/L (AST/SGOT) Alanine Aminotransferase 32 U/L 27 U/L 26 U/L (ALT/SGPT) Alkaline Phosphatase 277 U/L 221 U/L 221 U/L Troponin I 0.10 NG/ML Total Protein 8.7 GM/DL 8.0 GM/DL 8.2 GM/DL Albumin 3.4 GM/DL 3.4 GM/DL 3.4 GM/DL Phosphorus Level 7.9 MG/DL 25-Hydroxy Vitamin D Total 35.9 ng/ML Parathyroid Hormone (Intact) 495.6 PG/ML Microbiology Date/Time Procedure Status Source Growth 12/15/16 20:25 Aerobic Blood Culture - Preliminary Resulted Blood Peripheral NO GROWTH IN 2 DAYS 12/15/16 20:25 Anaerobic Blood Culture - Preliminary Resulted Blood Peripheral NO GROWTH IN 2 DAYS 12/15/16 20:25 Gram Stain - Final Resulted Wound Finger 12/15/16 20:25 Wound Culture - Preliminary Resulted Gram Negative Donaldo 12/15/16 20:30 Aerobic Blood Culture - Preliminary Resulted Blood Peripheral NO GROWTH IN 2 DAYS 12/15/16 20:30 Anaerobic Blood Culture - Preliminary Resulted Blood Peripheral Imaging Last Impressions Hand X-Ray 12/16/16 0000 Signed Impressions: Service Date/Time: Friday, December 16, 2016 18:20 - CONCLUSION: Destructive changes distal phalanx fourth digit concerning for osteomyelitis. Ramses Vazquez MD Chest X-Ray 12/15/16 2019 Signed Impressions: Service Date/Time: Thursday, December 15, 2016 20:31 - CONCLUSION: Mild cardiomegaly and increase in pulmonary vascularity. Ramses Vazquez MD Physical Exam GENERAL: This is a well-nourished, well-developed patient, in no apparent distress. SKIN: No rashes, ecchymoses or lesions. Cool and dry. HEAD: Atraumatic. Normocephalic. No temporal or scalp tenderness. EYES: Pupils equal round and reactive. Extraocular motions intact. No scleral icterus. No injection or drainage. ENT: Nose without bleeding, purulent drainage or septal hematoma. Throat without erythema, tonsillar hypertrophy or exudate. Uvula midline. Airway patent. NECK: Trachea midline. No JVD or lymphadenopathy. Supple, nontender, no meningeal signs. CARDIOVASCULAR: Regular rate and rhythm without murmurs, gallops, or rubs. RESPIRATORY: Clear to auscultation. Breath sounds equal bilaterally. No wheezes , rales, or rhonchi. GASTROINTESTINAL: Abdomen soft, non-tender, nondistended. No hepato-splenomegaly , or palpable masses. No guarding. MUSCULOSKELETAL: Left UE with ulceration ? down to bone. Right middle finger and index finger with tips with unhealthy granulation tissue ? bone involvement. Right BKA site ok with no e.o infection. NEUROLOGICAL: Awake and alert. Grossly non focal Psych: agitated and wants to go to other hospital IV line sites with no e.o infection. Assessment & Plan Remarks GNR bacteremia source likely hand infection GNR in finger tip cultures site of infection. Bilateral UE superficial ulcerations and blackening ? gangrene ? 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 Recs: d/w Micro: GNR in 1/4 bottles is E.coli. Pt recd Aztreonam and tolerated well. Will start cefepime IV and premedicate for overnight doses and reassess in am. hernan Ballesteros: pt needs I&D and possibly amputation of some digits. will see pt later today. Pt was scheduled for surgery today but did not want to be NPO today till after he discusses with . Donaldow Fariba Blake MD Dec 17, 2016 17:11
[2016-12-17] MEDS: ACETAMINOPHEN/HYDROcodone 325 MG/10 MG TAB PO PRN (18:41)
[2016-12-17] MEDS ORDERED: diphenhydrAMINE HCL 50 MG/ML VIAL IV PUSH ONE (19:45)
[2016-12-17] MEDS: CEFEPIME INJ 1,000 MG in SODIUM CHLORIDE 0.9% INJ 100 ML IV SCH (20:29)
--- NOTE | 2016-12-17 21:57 | PD.ORT.PN ---
Subjective Subjective Remarks 41yM pmhx significant for CAD, CHF, DM, Afib, Dialysis presents with draining wounds right index and ring fingers and left ring finger and left thumb for past 1 month. Please see dictated consult note for full details. Objective Vitals Vital Signs Date Time Temp Pulse Resp B/P Pulse Ox O2 Delivery O2 Flow Rate FiO2 12/17/16 20:00 102 12/17/16 20:00 97.5 102 21 115/56 95 12/17/16 19:00 90 Nasal Cannula 2.00 12/17/16 18:00 115 12/17/16 16:00 97.4 86 33 102/50 95 12/17/16 16:00 86 12/17/16 14:00 104 12/17/16 12:00 86 12/17/16 12:00 98 Nasal Cannula 3.00 12/17/16 12:00 97.4 96 25 92/57 98 12/17/16 10:00 89 12/17/16 08:56 100 21 12/17/16 08:00 97.6 94 19 89/66 96 12/17/16 08:00 89 12/17/16 07:00 100 Nasal Cannula 2.00 12/17/16 06:00 101 12/17/16 04:00 103 12/17/16 04:00 97.4 103 16 115/51 97 12/17/16 02:00 99 12/17/16 00:00 98 12/17/16 00:00 97.4 98 16 91/53 96 12/16/16 22:00 97 12/16/16 21:59 93 Nasal Cannula 3.00 I/O 12/16/16 12/16/16 12/16/16 12/17/16 12/17/16 12/17/16 07:00 15:00 23:00 07:00 15:00 23:00 Intake Total 200 ml 480 ml 300 ml 100 ml 360 ml Output Total 3000 ml Balance 200 ml -2520 ml 300 ml 100 ml 360 ml Intake Oral 200 ml 480 ml 300 ml 100 ml 240 ml IV Total 120 ml Output Hemodialysis 3000 ml # Voids 0 0 0 Result Diagram: 12/17/16 0359 12/17/16 0359 Other Results Laboratory Tests Test 12/17/16 03:59 Prothrombin Time 11.4 SEC (9.8-11.6) Prothromb Time International 1.0 RATIO Ratio Assessment & Plan Assessment and Plan 41yM pmhx significant for CAD, CHF, DM, Afib, Dialysis presents with draining wounds right index and ring fingers and left ring finger and left thumb for past 1 month. -Patient known to me from prior left middle finger amputation at the MCP joint, patient had intraoperative cardiac event resulting in respiratory failure and prolonged hospitalization -Xrays concerning for osteomyelitis and culture + gram neg -Recommend MRI left hand to evaluate thumb -Was planning for surgical intervention today 12/17 but patient noncompliant with NPO status thus cancelled by anesthesia -Will plan for possible I&D possible revision amputation right index and ring and left ring and thumb tomorrow under likely block -Would like cardiac, vascular, and nephrology clearance -Patients understands very high risk for complications including , respiratory failure, wound complications, need for additional surgeries. Will try to preserve thumb Jacqui Barrett MD Dec 17, 2016 21:57
--- NOTE | 2016-12-17 22:23 | MB ---
cc: MICHELLE MOLINA DATE OF CONSULTATION 12/17/2016 REASON FOR CONSULTATION Multiple draining abscesses bilateral hands. HISTORY OF PRESENT ILLNESS Lebron Stahl is a 41-year-old right-hand dominant male known to me for prior partial amputation of the left middle finger approximately December 23, 2015. This did require revision amputation from the PIP joint to the MP joint by my partner while I was out of town. During surgery the patient did have cardiac event including bradycardia and had a sustained hospital course. The patient has a very significant past medical history significant for coronary artery disease, CHF, cardiomegaly, atrial fibrillation on dialysis with significant renal failure and vascular disease status post BKA who was admitted on 12/15/2016 for generalized weakness, nausea, vomiting and multiple draining wounds. The patient also reported draining wound on the back as well as the hands. He does have an av fistula in the left upper extremity. He was treated with IV vancomycin approximately 2 weeks ago during dialysis for multiple skin infections. He has also been taking Bactrim. The patient was noted to be in atrial fibrillation on admission. I was consulted yesterday on 12/16/2016 but the patient was not n.p.o. He was made n.p.o. for possible surgical intervention today 12/17/[address] King of infectious disease as well as reviewing x-rays which showed possible osteomyelitis of the right index and ring fingers as well as left ring finger. Despite having a discussion with the nurse this morning on 12/17/2016 discussing the importance of the patient being n.p.o. for surgical intervention the patient violated this and decided to eat lunch despite possible surgical intervention early this afternoon. ALLERGIES THE PATIENT HAS MULTIPLE ALLERGIES INCLUDING HALDOL, REGLAN, AZITHROMYCIN, ZOSYN, ATIVAN. PAST SURGICAL HISTORY Left index finger amputation of the PIP joint, left middle finger amputation at the MP joint. Below knee amputation on the right. Revision of wound amputation for osteomyelitis and VAC placement. AV fistula on the left. MEDICATIONS The patient is currently takin. Calcium acetate. 2. [facility]. 3. NovoLog insulin. 4. Sensipar. 5. Xanax. 6. aspirin. 7. Omeprazole. 8. IV antibiotics in the hospital. SOCIAL HISTORY The patient does smoke two cigarettes per day. Denies any alcohol or drug use. Does have a motorized wheelchair as well as a standard wheelchair. Infectious disease evaluated on 12/16/2016. The patient was currently on a Cardizem drip. LABORATORY DATA White count 7.8, creatinine 7.85, glucose 389. Superficial culture from the finger growing a gram-negative. The patient is currently in the ICU. Infectious disease evaluating for calciphylaxis versus infection. Upon evaluation today, temperature 97.4, pulse 86, blood pressure 102/50, respirations of 25. IMAGING STUDIES X-ray of the left hand shows amputation of the middle finger at the metacarpal phalangeal joint as well as the index finger at the proximal interphalangeal joint. Significant calcifications. Soft tissue swelling over the left index finger and left ring finger. X-rays of the right hand shows destruction of the right ring finger concerning for osteomyelitis as well as calcification. PHYSICAL EXAMINATION DIRECTED EXAMINATION: On physical exam the patient has purulence coming from the left ring finger distal interphalangeal joint and the left thumb IP joint, also from the right index finger and right ring finger at the level of the distal phalanx. The patient does have function of FDS and FDP. Globally decreased sensation bilaterally. Functioning AV fistula on the left forearm. The patient does have capillary refill bilaterally. ASSESSMENT/PLAN A 41-year-old male significant past medical history is well known to me with significant cardiac risk and kidney failure on dialysis with persistent draining wounds and osteomyelitis of the left ring finger, right index finger, right ring finger and left thumb are concerning for osteomyelitis. At this time I recommend an MRI to specifically evaluate the left thumb. I was planning to take the patient to the operating room around noon or 1 o'clock this afternoon but the patient and was noncompliant with n.p.o. status. I discussed this with anesthesia. They felt he was too high risk after being noncompliant with n.p.o. status to proceed this evening. The plan will be for, again, repeat n.p.o. tomorrow for likely surgical intervention. This include possible revision amputation right index finger, right ring finger, left ring finger at the distal interphalangeal joint, likely irrigation, debridement of the left thumb, possible amputation of the left thumb surgery is indicated. The patient elected to proceed. He understands he is at very high risk for complications including prolonged hospitalization, , respiratory failure, need for additional surgeries including additional amputations of the fingers, pain, paresthesias and he elects to proceed and states that he will be compliant with n.p.o. status at this time. MD CHARMAINE Suarez/WENDY /9:50 PM /10:02 PM ALISSA
--- NOTE | 2016-12-17 23:25 | RADRPT ---
EXAM DATE/TIME: 12/17/2016 22:14 [facility] COMPARISON: HAND LEFT COMPLETE ([id number]), December 16, 2016, 18:15. MRI HAND LEFT W/O CONTRAST, December 22, 2015, 18:59 . INDICATIONS : Osteomyelitis. Wound near first interphalangeal joint, and distal end of fourth digit. MEDICAL HISTORY : Diabetes. Renal disease. SURGICAL HISTORY : Right BKA. Multiple digit amputations, left hand. ENCOUNTER: Subsequent ACUITY: 1 day PAIN SCORE: 0/10 LOCATION: TECHNIQUE: Multiplanar, multisequence MRI examination was performed without contrast. FINDINGS: Examination quality is graded by motion artifact. There is complete amputation of the third digit with amputation of the second digit distal phalanx an d most of the middle phalanx. Bone marrow signal demonstrates a normal appearance on the T1-weighted sequence. The T2 weighted images are severely degraded by motion artifact but no definite bone marrow edema is identified. There is edema within the thenar region muscles. No fluid collection is identif ied. Tendons demonstrate no acute finding. CONCLUSION: 1. Image quality is degraded secondary to motion artifact. There is edema within the thenar musculatu re. No fluid collection is visualized. 2. No bone marrow signal abnormality is identified on the T1 weighted images to indicate osteomyeliti s on this noncontrast exam. Partha Soares MD on December 17, 2016 at 23:20 Board Certified Radiologist. This report was verified electronically.
[2016-12-18] VITALS (11 sets, daily range): BP systolic 95–107; BP diastolic 54–71; PULSE 82–117; RESP 13–25; TEMP 97.4–98.6; O2SAT 100
[2016-12-18] MEDS: MORPHINE SULFATE 4 MG/ML INJ IV PRN (00:35)
[2016-12-18] MEDS: CHLORHEXIDINE GLUCONATE 2 % 1 PACK (2 CLOTHS) TOP SCH (00:53)
[2016-12-18] MEDS: RESP: ALBUTEROL 2.5 MG/IPRATROPIUM 0.5 MG NEB (SCH) NEB ×4 (04:00→20:21)
[2016-12-18] MEDS: HEPARIN SODIUM - SQ 10,000 UNITS/ML VIAL SQ SCH ×3 (04:47→22:00)
[2016-12-18] MEDS: DILTIAZEM HCL 60 MG TAB PO SCH ×5 (04:47→23:38)
[2016-12-18] MEDS: INSULIN ASPART SUPPLEMENTAL SCALE SQ SCH ×4 (05:02→21:00)
[2016-12-18 05:40] LABS: AUTOMATED NEUTROPHIL # 5.1 TH/MM3 (1.8-7.7); BASOPHIL # 0.1 TH/MM3 (0-0.2); EOSINOPHIL # 0.1 TH/MM3 (0-0.4); HEMATOCRIT 43.1 % (39.0-51.0); LYMPH % 9.8 % (9.0-44.0); LYMPHOCYTE # 0.6 TH/MM3 (1.0-4.8); MEAN CELL VOLUME 105.1 FL (80.0-100.0); MEAN CORPUSCULAR HEMOGLOBIN 32.9 PG (27.0-34.0); MEAN CORPUSCULAR HGB CONC 31.3 % (32.0-36.0); MONO % 8.8 % (0.0-8.0); NEUT % 79.4 % (16.0-70.0); PLATELET COUNT 98 TH/MM3 (150-450); RED CELL DISTRIBUTION WIDTH 21.2 % (11.6-17.2); WHITE BLOOD COUNT 6.4 TH/MM3 (4.0-11.0)
[2016-12-18 05:56] LABS: BICARBONATE 18.3 MEQ/L (21.0-32.0); POTASSIUM 6.3 MEQ/L (3.5-5.1)
[2016-12-18 06:02] LABS: HEMO FLAGS AUTO DIFF
[2016-12-18] MEDS: SODIUM CHLORIDE 0.9% FLUSH 10 ML FLUSH SCH ×2 (09:00→21:00)
[2016-12-18] MEDS: ASPIRIN 325 MG TAB PO SCH (09:00)
[2016-12-18 09:19] LABS: BANDS 9 % (0-6); BASOPHILS 1 % (0-2); EOSINOPHILS 1 % (0-4); METAMYELOCYTES 1 % (0-1); NEUTROPHIL # MANUAL DIFF 5.1 TH/MM3 (1.8-7.7); PLATELET ESTIMATE SMEAR LOW (NORMAL); PLATELET MORPHOLOGY ENLARGED (NORMAL); POLYS (SEG NEUTROPHILS) 70 % (16-70); SCAN/DIFF FINAL DIFF MANUAL; WBC DIFF SAMPLE 100
--- NOTE | 2016-12-18 09:19 | MB ---
cc: CHYNA BAUM MD DATE OF CONSULTATION 12/18/2016 REASON FOR CONSULTATION Preoperative stratification. HISTORY OF PRESENT ILLNESS Mr. Stahl is a 41-year-old gentleman who does have a history of cardiomyopathy with an EF of 25% and atrial fibrillation. The patient has had progressive difficulties with infection, osteomyelitis in the past and peripheral vascular disease. They are now requesting cardiovascular risk stratification prior to finger amputations. PAST MEDICAL HISTORY Significant for - 1. Atrial fibrillation that is status post ablation and is recurrent. 2. Congestive heart failure with an EF of 25%. 3. Hypertension. 4. Diabetes. 5. End-stage renal disease on dialysis. 6. Bipolar disorder. 7. GERD. 8. Multiple amputations. 9. Osteomyelitis. 10. Noncompliance. ALLERGIES ATIVAN. AZITHROMYCIN. CLONIDINE. DILAUDID. HALDOL. REGLAN. ZOSYN. ALL ANTIEMETICS. CURRENT MEDICATIONS Per the record. FAMILY HISTORY Significant for CAD and diabetes. SOCIAL HISTORY The patient does continue to smoke. REVIEW OF SYSTEMS Except as mentioned in the HPI, all 12 systems are negative. PHYSICAL EXAMINATION VITAL SIGNS: 97.7, 103, 98/58. GENERAL: In general he is an obese man who is in no apparent distress while on dialysis. NECK: His neck is difficult to assess. LUNGS: The lungs have decreased but seemingly clear to auscultation. CARDIOVASCULAR EXAMINATION: He has an irregularly irregular rhythm. No rubs or gallops appreciated. ABDOMEN: Soft. EXTREMITIES: There is a right lower extremity amputation. CARDIOLOGY STUDIES Nuclear stress testing from 10/16/2015 shows EF of 25%. There was a fixed apical and inferior defect. No significant ischemia was appreciated. ASSESSMENT AND PLAN Preoperative Risk Stratification - This gentleman certainly has a history of cardiomyopathy. His most recent stress test from just over a year ago did not show any evidence for ischemia. Given his cardiomyopathy and multiple comorbid conditions as well as his relative hypotension, he will be at moderate to perhaps even high risk for any procedures. Consideration should be given towards doing this under local if at all feasible. It is reasonable to proceed in any case given his rather dire situation. CARDIOMYOPATHY - the patient has refused in the past and has been noncompliant with office visits, thus at this point I would continue present meds at this time. Ideally he would be on a beta ewelina given his low EF, however this is felt relatively contraindicated with his bipolar disorder. He is a poor candidate for LISSA inhibitor secondary to hypotension and dialysis. Kayla Koenig/SSB /7:50 AM /9:03 AM ALISSA
[2016-12-18] MEDS: CINACALCET HYDROCHLORIDE 30 MG TAB PO SCH (10:11)
[2016-12-18] MEDS: MUPIROCIN 2% OINT 1 APPLIC/GM SYR NASAL SCH ×2 (10:11→21:00)
[2016-12-18] MEDS: PANTOPRAZOLE SOD 20 MG DELAYED RELEASE TAB PO SCH (10:11)
[2016-12-18] MEDS: DOCUSATE SODIUM 50 MG/SENNA 8.6 MG TAB PO SCH ×2 (10:11→21:00)
--- NOTE | 2016-12-18 10:30 | PD.VS.CON ---
History of Present Illness Chief Complaint: NON healing bilateral hand ulcerations LUE AVF evaluation Consult Requested by: Dr. Barrett History of Present Illness Mr. Stahl is a 41yo/M who presented to the ED for an evaluation of generalized weakness nausea vomiting and multiple areas of draining wounds/dry ulcerations and abscesses affecting the upper extremities. Patient has a PMH of CAD/ CHF/atrial fibrillation/ hypertension/ renal failure on hemodialysis/ R BKA. Patient was last treated with antibiotic IV vancomycin during hemodialysis 2 weeks ago for multiple skin infections. Patient reported he continues to have ongoing skin issues specifically of the bilateral hands and upper back. Patient states he had no issues with his right BKA stump. Patient was seen in the emergency department 10/27/16 and Bactrim was added to his antibiotic regimen. Patient's HD is scheduled for Friday and Fridays at [facility] ([place]). Pt reported his HD center has been having difficulties using his L AVF over the past few weeks. Pt c/o bilat hand pain for years. Last fistulagram was done 5 years ago per patient where he stated they ballooned his upper extremity. (Angelika Trinidad) Past/Family/Social History Past Medical History End-stage renal disease on hemodialysis follows with Dr. Song Hypertension Diabetes Atrial fibrillation status post ablation Congestive heart failure with EF of 25%, refused AICD COPD Sleep apnea on home nighttime oxygen at 2 L Anemia of chronic disease Bipolar disorder Past Surgical History Left second finger amputation at the PIP joint Left third finger partial amputation Right BKA in 2011 Revision of right BKA for osteomyelitis and wound VAC placement Left forearm AV fistula. Recent left hand third digit amputation Social History + Tobacco usage denies alcohol or illicit drug abuse (Angelika Trinidad) Home Medications Reported Medications Calcium Acetate (Phosphate Bin (Calcium Acetate)667 Mg Cap4 Tab PO ACHS 12/15/16 Hydrocodone-Acetaminophen 10-325 mg Tab1 Tab PO Q4H PRN (PAIN) Ref 0 12/15/16 Insulin Aspart Inj (Novolog Inj)1,000 Unit/10 Ml Vial SQ DIRECTED #10 ML Ref 0 Sliding Scale as directed. 12/15/16 Cinacalcet (Sensipar)60 Mg Tab60 Mg PO DAILY #30 TAB Ref 0 10/27/16 Alprazolam (Xanax)0.5 Mg Tab0.5 Mg PO HS PRN (ANXIETY) Ref 0 08/15/16 Aspirin 325 Mg Zhs508 Mg PO DAILY #30 TAB Ref 0 08/15/16 Omeprazole 20 Mg Tab20 Mg PO DAILY #30 TAB Ref 0 04/10/16 Discontinued Reported Medications Duloxetine DR (Cymbalta DR)60 Mg Capdr60 Mg PO DAILY #30 CAP Ref 0 08/15/16 Insulin Lispro (Human) Inj (Humalog Inj)1,000 Unit/10 Ml Vial5-25 Units SQ ACHS #1 VIAL Ref 0 Max dose at bedtime:( )units; sugars < 70,(0)units; sugars 150-199,(5)units; sugars 200-249,(10)units; sugars 250-299,(15)units; sugars 300-349,(20)units; sugars more than 349,(25)units. 08/15/16 Insulin Lispro (Human) Inj (Humalog Inj)1,000 Unit/10 Ml Vial5-25 Units SQ TIDAC #1 VIAL Ref 0 Max dose at bedtime:( )units; sugars < 70,(0)units; sugars 150-199,(5)units; sugars 200-249,(10)units; sugars 250-299,(15)units; sugars 300-349,(20)units; sugars more than 349,(25)units. 04/10/16 Discontinued Scripts Sulfamethoxazole-Trimethoprim (Bactrim DS)800-160 Mg Tab1 Tab PO BID #20 TAB Prov:Wilfredo Ashley MD 10/27/16 Doxycycline Hyclate 100 Mg Tyr142 Mg PO BID #14 CAP Ref 0 Prov:Isabella Sutton MD 10/13/16 Coded Allergies: Haldol (Verified Allergy, Severe, THROAT CLOSES UP, 12/15/16) Reglan (Verified Allergy, Severe, Irritability/Anxiety, 12/15/16) DYSTONIC REACTION Azithromycin (Verified Allergy, Intermediate, anxiety and itching, 12/15/16 ) Zosyn (Verified Allergy, Unknown, 12/17/16) Pt reports he is not sure. Thinks he may have recd Keflex as outpt. Clonidine (Verified Adverse Reaction, Severe, 12/15/16) PT STATES HE GOES COMATOSE OR GETS VERY CRAZY, MEMORY LOSS Dilaudid (Verified Adverse Reaction, Severe, becomes belligerent and out of control , 12/15/16) pt states does not have a allergy to this med Ativan (Verified Adverse Reaction, Intermediate, MAKES ANXIETY WORSE, 12/15) *MDRO Multi-Drug Resistant Organism (Verified Adverse Reaction, Unknown, ) MRSA (back)-10/13/16 MRSA (blood & ankle) - 04/2014; (buttock & chest) - 10/2015; (finger) - 12/23/15; (sputum) - 12/25/15; (Finger Wound) - 01/2016 MRSA PCR Screen POSITIVE - 01/10/15, 12/23/15, 02/25/16, MRSA (finger) 12/15/16 MRSA (finger) 12/15/16 12/16/16 MRSA & Klebsiella pneumoniae ESBL Pos (finger wound) - 02/07/16 Uncoded Allergies: ANTIEMETICS ( PER PT ALL ) (Adverse Reaction, Unknown, MAKES " ME CRAZY ", 11/21/15) Review of Systems Musculoskeletal: COMPLAINS OF: Joint pain, Muscle aches (Bilat hand pain ), Stiffness, Joint Swelling, Back pain, Neck pain Integumentary: COMPLAINS OF: Abnormal pigmentation (Pt w/ multiple ulcerations to fingers ) (Angelika Trinidad) Physical Exam Vitals/I&O Date Time Temp Pulse Resp B/P Pulse Ox O2 Delivery O2 Flow Rate FiO2 12/18/16 10:04 100 Nasal Cannula 4.00 12/18/16 08:00 97.6 98 14 103/58 100 12/18/16 08:00 88 12/18/16 07:00 100 Nasal Cannula 4.00 12/18/16 06:00 103 12/18/16 04:00 97.7 82 13 99/58 100 12/18/16 04:00 82 12/18/16 02:00 94 12/18/16 00:00 97.9 114 24 107/71 100 12/18/16 00:00 114 12/17/16 22:00 110 12/17/16 21:47 100 Nasal Cannula 3.00 12/17/16 20:00 102 12/17/16 20:00 97.5 102 21 115/56 95 12/17/16 19:00 90 Nasal Cannula 2.00 12/17/16 18:00 115 12/17/16 16:00 97.4 86 33 102/50 95 12/17/16 16:00 86 12/17/16 14:00 104 12/17/16 12:00 86 12/17/16 12:00 98 Nasal Cannula 3.00 12/17/16 12:00 97.4 96 25 92/57 98 12/18/16 12/18/16 12/18/16 06:59 14:59 22:59 Intake Total 60 ml Balance 60 ml Neuro: Alert Neck: supple Heart: Irregular Vascular: Radial pulses palpable Extremities: Pt is w/ multiple areas of various staged wounds to the bilateral hand/digits Left thumb with dry ulceration times a few months per patient Right BKA stump nontender (Angelika Trinidad) Laboratory Tests Test 12/18/16 05:02 White Blood Count 6.4 Red Blood Count 4.10 Hemoglobin 13.5 Hematocrit 43.1 Mean Corpuscular Volume 105.1 Mean Corpuscular Hemoglobin 32.9 Mean Corpuscular Hemoglobin 31.3 Concent Red Cell Distribution Width 21.2 Platelet Count 98 Mean Platelet Volume 8.9 Neutrophils (%) (Auto) 79.4 Lymphocytes (%) (Auto) 9.8 Monocytes (%) (Auto) 8.8 Eosinophils (%) (Auto) 1.0 Basophils (%) (Auto) 1.0 Neutrophils # (Auto) 5.1 Lymphocytes # (Auto) 0.6 Monocytes # (Auto) 0.6 Eosinophils # (Auto) 0.1 Basophils # (Auto) 0.1 CBC Comment AUTO DIFF Differential Total Cells 100 Counted Neutrophils % (Manual) 70 Band Neutrophils % 9 Lymphocytes % 9 Monocytes % 9 Eosinophils % 1 Basophils % 1 Neutrophils # (Manual) 5.1 Metamyelocytes 1 Differential Comment FINAL DIFF MANUAL Platelet Estimate LOW Platelet Morphology Comment ENLARGED Sodium Level 128 Potassium Level 6.3 Chloride Level 92 Carbon Dioxide Level 18.3 Anion Gap 18 Blood Urea Nitrogen 75 Creatinine 10.13 Estimat Glomerular Filtration 6 Rate Random Glucose 381 Calcium Level 8.2 Phosphorus Level 8.5 Albumin 3.5 Date/Time Procedure Status Source Growth 12/15/16 20:30 Aerobic Blood Culture - Preliminary Resulted Blood Peripheral NO GROWTH IN 2 DAYS 12/15/16 20:30 Anaerobic Blood Culture - Final Resulted Morganella Morganii 12/15/16 20:25 Gram Stain - Final Resulted Wound Finger 12/15/16 20:25 Wound Culture - Preliminary Resulted Gram Negative Donaldo Last 48 hours Impressions Hand MRI 12/17/16 0000 Signed Impressions: Service Date/Time: Saturday, December 17, 2016 22:14 - CONCLUSION: 1. Image quality is degraded secondary to motion artifact. There is edema within the thenar musculature. No fluid collection is visualized. 2. No bone marrow signal abnormality is identified on the T1 weighted images to indicate osteomyelitis on this noncontrast exam. Partha Soares MD (Angelika Trinidad) Assessment and Plan Assessment: (1) Non-healing ulcer Status: Acute Plan Plan Ordered a WBI w/ LE Vein mapping Will review results to determine next plan of action Angelika MIXON [facility] [phone] (Angelika Trinidad) Plan I agree with above. Ischemic ulcerations with partial amputations of bilateral hand digits. Ischemia for over two years.. Palpable radial pulses bilaterally. Patient refusing WBIs Plan for follow up with me after discharge with WBIs in two weeks. Frank Lester DO, FACS (Frank Lester DO) Angelika Trinidad Dec 18, 2016 10:30 Frank Lester DO Dec 19, 2016 11:04
[2016-12-18] MEDS ORDERED: LIDOCAINE HCL 2% 20 ML VIAL NERV BLOCK ONE (10:32)
[2016-12-18] MEDS ORDERED: ROPIVACAINE 1% PF INJ 20 ML AMP NERV BLOCK ONE (10:33)
[2016-12-18] MEDS: SEVELAMER CARBONATE 800 MG TAB PO SCH ×3 (10:56→17:00)
[2016-12-18] MEDS: DEXT 5%-NACL 0.9% 1000 ML INJ 1,000 ML IV SCH (11:56)
[2016-12-18] MEDS: VANCOMYCIN 1,500 MG/NS 500 ML IV ONE ×4 (13:00→15:00)
[2016-12-18] MEDS ORDERED: DILTIAZEM INJ 125 MG in SODIUM CHLORIDE 0.9% INJ 100 ML IV PRN (14:15)
[2016-12-18] MEDS ORDERED: SODIUM CHLOR 0.9% 250 ML INJ 250 ML IV PRN (14:15)
--- NOTE | 2016-12-18 14:32 | HHI.PR ---
Subjective Remarks Consulted the critical care medicine for medical management and transfer of care. Chart reviewed. Discussed with RN and critical care medicine. Patient agrees with hand surgery cleared by cardiology. He will consider AICD for treatment of infection. States IV morphine is not helping prefers to be on Dilaudid. Counseled regarding narcotics. Objective Vitals Vital Signs Date Time Temp Pulse Resp B/P Pulse Ox O2 Delivery O2 Flow Rate FiO2 12/18/16 13:04 97.4 109 15 97/56 100 12/18/16 10:04 100 Nasal Cannula 4.00 12/18/16 08:00 97.6 98 14 103/58 100 12/18/16 08:00 88 12/18/16 07:00 100 Nasal Cannula 4.00 12/18/16 06:00 103 12/18/16 04:00 97.7 82 13 99/58 100 12/18/16 04:00 82 12/18/16 02:00 94 12/18/16 00:00 97.9 114 24 107/71 100 12/18/16 00:00 114 12/17/16 22:00 110 12/17/16 21:47 100 Nasal Cannula 3.00 12/17/16 20:00 102 12/17/16 20:00 97.5 102 21 115/56 95 12/17/16 19:00 90 Nasal Cannula 2.00 12/17/16 18:00 115 12/17/16 16:00 97.4 86 33 102/50 95 12/17/16 16:00 86 I/O 12/17/16 12/17/16 12/17/16 12/18/16 12/18/16 12/18/16 07:00 15:00 23:00 07:00 15:00 23:00 Intake Total 100 ml 360 ml 201 ml 60 ml Balance 100 ml 360 ml 201 ml 60 ml Intake Oral 100 ml 240 ml 120 ml IV Total 120 ml 81 ml 60 ml # Voids 0 0 0 0 Result Diagram: 12/18/1650112/18/16 0502 Imaging Last Impressions Hand MRI 12/17/16 0000 Signed Impressions: Service Date/Time: Saturday, December 17, 2016 22:14 - CONCLUSION: 1. Image quality is degraded secondary to motion artifact. There is edema within the thenar musculature. No fluid collection is visualized. 2. No bone marrow signal abnormality is identified on the T1 weighted images to indicate osteomyelitis on this noncontrast exam. Partha Soares MD Hand X-Ray 12/16/16 0000 Signed Impressions: Service Date/Time: Friday, December 16, 2016 18:20 - CONCLUSION: Destructive changes distal phalanx fourth digit concerning for osteomyelitis. Ramses Vazquez MD Chest X-Ray 12/15/16 2019 Signed Impressions: Service Date/Time: Thursday, December 15, 2016 20:31 - CONCLUSION: Mild cardiomegaly and increase in pulmonary vascularity. Ramses Vazquez MD Objective Remarks Well-developed well-nourished male in no acute respiratory distress Warm and dry. Multiple areas of various staged wounds to the bilateral hand/ digits with various stages of healing and fluctuance of the left thumb IP with purulent drainage, mild erythema of the right BKA stump nontender and isolated purpuric lesion to the left great toe distal aspect. Normocephalic. Atraumatic No scleral icterus. No injection or drainage. Supple, trachea midline. No JVD or lymphadenopathy. Irregular irregular rate and rhythm without murmurs, gallops, or rubs. Breath sounds equal bilaterally. No accessory muscle use. Alert awake oriented. No focal deficits A/P Assessment and Plan Hand infection wound culture growing gram-negative antwon and MRSA and blood cx with Morganella - Continue cefepime and vancomycin. Infectious disease consulted - Wound culture and 1/4 blood culture with Morganella - hand surgery consulted- OR later today. Status post cardiology evaluation. Vascular surgery also consulted by hand surgery - R hand 4 th digit distal phalanx Xray showing destructive changes concerning for osteomyelitis. MRI no images to indicate osteomyelitis - Pain management with Lortab and IV Dilaudid End-stage renal disease - Hemodialysis per nephrology Hypertension - Hold home medications currently borderline low. Fluid bolus as needed. Vasopressors as needed Diabetes - Hyperglycemic discontinue D5. Insulin sliding scale. Hypoglycemic protocol. Obtain A1c Atrial fibrillation status post ablation - Po Cardizem if tolerated. Cardizem drip as needed. Switch to beta ewelina after procedure secondary to systolic dysfunction - Aspirin. Consider Coumadin or Eliquis [id number] of 2(DM and CHF) Congestive heart failure with EF of 25%, refused AICD - CHF education. Switch CCB to BB after procedure. Not a candidate for LISSA inhibitor secondary to hypotension and renal failure COPD - No exacerbation - No indication for steroid - DuoNeb scheduled and when necessary DVT GI prophylaxis - Teds SCDs subcutaneous heparin -Protonix Discharge Planning Transfer to floor in the morning if stable Weston Regalado MD Dec 18, 2016 14:32
--- NOTE | 2016-12-18 14:42 | HHI.NPPN ---
Subjective History of Present Illness 41 year old male with ESRD, DM, PVD bilateral vascular disease in hands Review of Systems General Constitutional: Fatigue Objective Data Data 12/17/16 12/18/16 19:00 07:00 Intake Total 360 ml 261 ml Balance 360 ml 261 ml Intake Oral 240 ml 120 ml IV Total 120 ml 141 ml # Voids 0 0 Vital Signs Date Time Temp Pulse Resp B/P Pulse Ox O2 Delivery O2 Flow Rate FiO2 12/18/16 13:04 97.4 109 15 97/56 100 12/18/16 10:04 100 Nasal Cannula 4.00 12/18/16 08:00 97.6 98 14 103/58 100 12/18/16 08:00 88 12/18/16 07:00 100 Nasal Cannula 4.00 12/18/16 06:00 103 12/18/16 04:00 97.7 82 13 99/58 100 12/18/16 04:00 82 12/18/16 02:00 94 12/18/16 00:00 97.9 114 24 107/71 100 12/18/16 00:00 114 12/17/16 22:00 110 12/17/16 21:47 100 Nasal Cannula 3.00 12/17/16 20:00 102 12/17/16 20:00 97.5 102 21 115/56 95 12/17/16 19:00 90 Nasal Cannula 2.00 12/17/16 18:00 115 12/17/16 16:00 97.4 86 33 102/50 95 12/17/16 16:00 86 -: 12/18/16 0502 12/18/16 0502 Physical Exam General Appearance: Well Developed Neck Neck Exam: Neck Supple Pulmonary Resp Exam: Clear Bilaterally, Breath Sounds Equal Cardiology CV Exam: Regular Gastrointestinal/Abdomen GI Exam: Soft, Non-Tender, Bowel Sounds Present Extremeties Extremities Exam: Moderate Edema Assessment/Plan Problem List: (1) End stage renal disease on dialysis Plan: he has high PO4 on Renvela/Sensipar HPTH PVD progression, he has vasculopathy progressive disease poor prognosis hand surgery for debridement MRI done HD 3 L UF continue Sensipar (2) Cellulitis of hand (3) Atrial fibrillation Plan: treated with Diltiazem (4) PVD (peripheral vascular disease) Plan: severe prognosis poor Maricarmen Song MD Dec 18, 2016 14:42
--- NOTE | 2016-12-18 15:14 | RADRPT ---
EXAM DATE/TIME: 12/18/2016 13:35 [facility] COMPARISON: No previous studies available for comparison. INDICATIONS : Preop potential graft. MEDICAL HISTORY : Congestive heart failure. Hypercholesterolemia. Rheumatoid arthritis. Blind right eye. Cataracts. Gla ucoma. TIA. Migraines. Afib. Cardiomyopathy. Chest pain. Hypertrophy. HTN. Sleep apnea. GERD. Renal d isease and failure. Renal calculi. Diabetes. Schizophrenia. Bipolar disorder. Anxiety. Cdiff. MRSA. Anticoagulant therapy. SURGICAL HISTORY : Cataracts removed. Cardiac ablation. Cardiac cath. AV shunt left arm. Dialysis. Left index finger amp utation. Right BKA. Right third digit amputation. Blood transfusions. Pyloric stenosis as infant. ENCOUNTER: Initial ACUITY: 1 day PAIN SCORE: 8/10 LOCATION: Bilateral leg. TECHNIQUE: Venous ultrasound of the left and right leg was performed from the inguinal ligament to the proximal calf. Real-time, color Doppler and spectral tracing, compression and augmentation techniques were us ed. FINDINGS: RIGHT LEG: There is normal compressibility of the deep venous system from the inguinal region to the proximal ca lf. No echogenic clot is seen in the lumen of the common femoral, femoral, and popliteal veins. The patient is status post [id number] amputation. There is a normal response of the venous system to proximal and distal augmentation and respiration. LEFT LEG: There is normal compressibility of the deep venous system from the inguinal region to the proximal ca lf. No echogenic clot is seen in the lumen of the common femoral, femoral, popliteal, and posterior tibial veins. There is a normal response of the venous system to proximal and distal augmentation an d respiration. CONCLUSION: No evidence of deep venous thrombosis within the lower extremities. Pastor Wade MD on December 18, 2016 at 15:11 Board Certified Radiologist. This report was verified electronically.
[2016-12-18] MEDS: HYDROmorphone HCL PF 1 MG/ML VIAL IV PUSH PRN (15:36)
--- NOTE | 2016-12-18 17:06 | RADRPT ---
EXAM DATE/TIME: 12/18/2016 13:44 [facility] COMPARISON: No previous studies available for comparison. INDICATIONS : Preop potential graft. MEDICAL HISTORY : Congestive heart failure. Hypercholesterolemia. Rheumatoid arthritis. Blind right eye. Cataracts. Gla ucoma. TIA. Migraines. Afib. Cardiomyopathy. Chest pain. Hypertrophy. HTN. Sleep apnea. GERD. Renal d isease and failure. Renal calculi. Diabetes. Schizophrenia. Bipolar disorder. Anxiety. Cdiff. MRSA. Anticoagulant therapy. SURGICAL HISTORY : Cataracts removed. Cardiac ablation. Cardiac cath. AV shunt left arm. Dialysis. Left index finger amp utation. Right BKA. Right third digit amputation. Blood transfusions. Pyloric stenosis as . ENCOUNTER: Initial ACUITY: 1 day PAIN SCORE: 8/10 LOCATION: Bilateral leg. GREATER SAPHENOUS VEIN THIGH: PROXIMAL: Right 5 mm Left 4 mm MID: Right 2 mm Left 3 mm DISTAL: Right 2 mm Left 4 mm CALF: PROXIMAL: Right 2 mm Left 3 mm MID: Right Left 2 mm DISTAL: Right Left 3 mm FINDINGS: The venous system of the lower extremities are patent by color Doppler imaging. Measurements of the leg veins (in mm) are listed above. CONCLUSION: Patent saphenous veins bilaterally as above Partha Bowman MD on December 18, 2016 at 17:04 Board Certified Radiologist. This report was verified electronically.
[2016-12-18] MEDS ORDERED: MIDAZOLAM HCL 2 MG/2 ML VIAL ONE (17:09)
[2016-12-18] MEDS ORDERED: KETAMINE HCL 500 MG/5 ML VIAL ONE (17:10)
[2016-12-18 18:27] LABS: HEMOGLOBIN A1a 1.5 %; HEMOGLOBIN A1b 2.8 %; HEMOGLOBIN Ao 77.7 %; HEMOGLOBIN LA1C 3.4 %; HEMOGLOBIN P3 5.5 %
--- NOTE | 2016-12-18 19:34 | HHI.IDPN ---
Subjective Subjective Remarks Ms. Stahl is a 41-year-old male presents by private transportation for evaluation of generalized weakness, nausea, vomiting and multiple areas of draining wounds and abscesses affecting the upper extremities. Patient has extensive past medical history including CAD CHF cardiomyopathy atrial fibrillation hypertension renal failure with hemodialysis right BKA, amputation of the left index finger and left fifth digit, cardiac ablation, left forearm dialysis AV fistula graft and tobaccoism. Patient was last treated with antibiotic IV vancomycin during hemodialysis 2 weeks ago for multiple skin infections. Patient states continued to have ongoing skin issues specifically of the bilateral hands and upper back for several years. Patient states he had no issues with his right BKA stump. Patient was seen in the emergency department 10/27/16 and Bactrim was added to his antibiotic regimen. Patient states that while he was receiving dialysis which is scheduled Friday and Fridays he was also receiving vancomycin IV. At the time of my evaluation patient is in the intensive surgical care unit for management of atrial fibrillation and is currently planned to be on Cardene drip. Overnight events reviewed no fevers No rash No diarrhea NPO for surgery today/ Antibiotics Cefepime IV daily Lines Line sites with no e.o infection. Past Medical History End-stage renal disease on hemodialysis follows with Dr. Song Hypertension Diabetes Atrial fibrillation status post ablation Congestive heart failure with EF of 25%, refused AICD COPD Sleep apnea on home nighttime oxygen at 2 L Anemia of chronic disease Bipolar disorder Left second finger amputation at the PIP joint Left third finger partial amputation Right BKA in 2011 Revision of right BKA for osteomyelitis and wound VAC placement Left forearm AV fistula. Recent left hand third digit amputation Allergies: Coded Allergies: Haldol (Verified Allergy, Severe, THROAT CLOSES UP, 12/15/16) Reglan (Verified Allergy, Severe, Irritability/Anxiety, 12/15/16) DYSTONIC REACTION Azithromycin (Verified Allergy, Intermediate, anxiety and itching, 12/15/16 ) Zosyn (Verified Allergy, Unknown, 12/17/16) Pt reports he is not sure. Thinks he may have recd Keflex as outpt. Clonidine (Verified Adverse Reaction, Severe, 12/15/16) PT STATES HE GOES COMATOSE OR GETS VERY CRAZY, MEMORY LOSS Dilaudid (Verified Adverse Reaction, Severe, becomes belligerent and out of control , 12/15/16) pt states does not have a allergy to this med Ativan (Verified Adverse Reaction, Intermediate, MAKES ANXIETY WORSE, 12/15) *MDRO Multi-Drug Resistant Organism (Verified Adverse Reaction, Unknown, ) MRSA (back)-10/13/16 MRSA (blood & ankle) - 04/2014; (buttock & chest) - 10/2015; (finger) - 12/23/15; (sputum) - 12/25/15; (Finger Wound) - 01/2016 MRSA PCR Screen POSITIVE - 01/10/15, 12/23/15, 02/25/16, 12/16/16 MRSA & Klebsiella pneumoniae ESBL Pos (finger wound) - 02/07/16 Uncoded Allergies: ANTIEMETICS ( PER PT ALL ) (Adverse Reaction, Unknown, MAKES " ME CRAZY ", 11/21/15) Objective . Vital Signs Date Time Temp Pulse Resp B/P Pulse Ox O2 Delivery O2 Flow Rate FiO2 12/18/16 18:00 108 12/18/16 16:00 97.7 102 22 95/54 100 12/18/16 13:04 97.4 109 15 97/56 100 12/18/16 10:04 100 Nasal Cannula 4.00 12/18/16 08:00 97.6 98 14 103/58 100 12/18/16 08:00 88 12/18/16 07:00 100 Nasal Cannula 4.00 12/18/16 06:00 103 12/18/16 04:00 97.7 82 13 99/58 100 12/18/16 04:00 82 12/18/16 02:00 94 12/18/16 00:00 97.9 114 24 107/71 100 12/18/16 00:00 114 12/17/16 22:00 110 12/17/16 21:47 100 Nasal Cannula 3.00 12/17/16 20:00 102 12/17/16 20:00 97.5 102 21 115/56 95 12/17/16 12/17/16 12/18/16 15:00 23:00 07:00 Intake Total 360 ml 201 ml 60 ml Balance 360 ml 201 ml 60 ml Intake Oral 240 ml 120 ml IV Total 120 ml 81 ml 60 ml # Voids 0 0 0 . Laboratory Tests Test 12/17/16 12/18/16 03:59 05:02 White Blood Count 6.7 TH/MM3 6.4 TH/MM3 Red Blood Count 3.85 MIL/MM3 4.10 MIL/MM3 Hemoglobin 12.7 GM/DL 13.5 GM/DL Hematocrit 39.2 % 43.1 % Mean Corpuscular Volume 102.0 FL 105.1 FL Mean Corpuscular Hemoglobin 33.1 PG 32.9 PG Mean Corpuscular Hemoglobin 32.5 % 31.3 % Concent Red Cell Distribution Width 20.3 % 21.2 % Platelet Count 98 TH/MM3 98 TH/MM3 Mean Platelet Volume 9.0 FL 8.9 FL Neutrophils (%) (Auto) 76.5 % 79.4 % Lymphocytes (%) (Auto) 7.6 % 9.8 % Monocytes (%) (Auto) 8.7 % 8.8 % Eosinophils (%) (Auto) 1.2 % 1.0 % Basophils (%) (Auto) 6.0 % 1.0 % Neutrophils # (Auto) 5.2 TH/MM3 5.1 TH/MM3 Lymphocytes # (Auto) 0.5 TH/MM3 0.6 TH/MM3 Monocytes # (Auto) 0.6 TH/MM3 0.6 TH/MM3 Eosinophils # (Auto) 0.1 TH/MM3 0.1 TH/MM3 Basophils # (Auto) 0.4 TH/MM3 0.1 TH/MM3 CBC Comment AUTO DIFF AUTO DIFF Differential Comment AUTO DIFF FINAL DIFF CONFIRMED MANUAL Platelet Estimate LOW LOW Platelet Morphology Comment ENLARGED ENLARGED Red Cell Morphology Comment NORMAL Differential Total Cells 100 Counted Neutrophils % (Manual) 70 % Band Neutrophils % 9 % Lymphocytes % 9 % Monocytes % 9 % Eosinophils % 1 % Basophils % 1 % Neutrophils # (Manual) 5.1 TH/MM3 Metamyelocytes 1 % Laboratory Tests Test 12/17/16 12/18/16 03:59 05:02 Sodium Level 130 MEQ/L 128 MEQ/L Potassium Level 4.0 MEQ/L 6.3 MEQ/L Chloride Level 94 MEQ/L 92 MEQ/L Carbon Dioxide Level 23.4 MEQ/L 18.3 MEQ/L Anion Gap 13 MEQ/L 18 MEQ/L Blood Urea Nitrogen 60 MG/DL 75 MG/DL Creatinine 8.60 MG/DL 10.13 MG/DL Estimat Glomerular Filtration 7 ML/MIN 6 ML/MIN Rate Random Glucose 162 MG/DL 381 MG/DL Calcium Level 8.1 MG/DL 8.2 MG/DL Phosphorus Level 7.9 MG/DL 8.5 MG/DL Magnesium Level 2.7 MG/DL Total Bilirubin 1.3 MG/DL Aspartate Amino Transf 10 U/L (AST/SGOT) Alanine Aminotransferase 26 U/L (ALT/SGPT) Alkaline Phosphatase 221 U/L Total Protein 8.2 GM/DL Albumin 3.4 GM/DL 3.5 GM/DL 25-Hydroxy Vitamin D Total 35.9 ng/ML Parathyroid Hormone (Intact) 495.6 PG/ML Microbiology Date/Time Procedure Status Source Growth 12/15/16 20:25 Aerobic Blood Culture - Preliminary Resulted Blood Peripheral NO GROWTH IN 3 DAYS 12/15/16 20:25 Anaerobic Blood Culture - Preliminary Resulted Blood Peripheral NO GROWTH IN 3 DAYS 12/15/16 20:25 Gram Stain - Final Resulted Wound Finger 12/15/16 20:25 Wound Culture - Preliminary Resulted Gram Negative Donaldo S. Aureus Mrsa 12/15/16 20:30 Aerobic Blood Culture - Preliminary Resulted Blood Peripheral NO GROWTH IN 3 DAYS 12/15/16 20:30 Anaerobic Blood Culture - Final Resulted Morganella Morganii 12/18/16 18:55 Aerobic Blood Culture Received Blood Peripheral Pending 12/18/16 18:55 Anaerobic Blood Culture Received Blood Peripheral Pending 12/18/16 19:00 Aerobic Blood Culture Received Blood Peripheral Pending 12/18/16 19:00 Anaerobic Blood Culture Received Blood Peripheral Pending Imaging Last Impressions Hand X-Ray 12/16/16 0000 Signed Impressions: Service Date/Time: Friday, December 16, 2016 18:20 - CONCLUSION: Destructive changes distal phalanx fourth digit concerning for osteomyelitis. Ramses Vazquez MD Chest X-Ray 12/15/16 2019 Signed Impressions: Service Date/Time: Thursday, December 15, 2016 20:31 - CONCLUSION: Mild cardiomegaly and increase in pulmonary vascularity. Ramses Vazquez MD Physical Exam GENERAL: This is a well-nourished, well-developed patient, in no apparent distress. SKIN: No rashes, ecchymoses or lesions. Cool and dry. HEAD: Atraumatic. Normocephalic. No temporal or scalp tenderness. EYES: Pupils equal round and reactive. Extraocular motions intact. No scleral icterus. No injection or drainage. ENT: Nose without bleeding, purulent drainage or septal hematoma. Throat without erythema, tonsillar hypertrophy or exudate. Uvula midline. Airway patent. NECK: Trachea midline. No JVD or lymphadenopathy. Supple, nontender, no meningeal signs. CARDIOVASCULAR: Regular rate and rhythm without murmurs, gallops, or rubs. RESPIRATORY: Clear to auscultation. Breath sounds equal bilaterally. No wheezes , rales, or rhonchi. GASTROINTESTINAL: Abdomen soft, non-tender, nondistended. No hepato-splenomegaly , or palpable masses. No guarding. MUSCULOSKELETAL: Left UE with ulceration ? down to bone. Right middle finger and index finger with tips with unhealthy granulation tissue ? bone involvement. Right BKA site ok with no e.o infection. NEUROLOGICAL: Awake and alert. Grossly non focal Psych: agitated and wants to go to other hospital IV line sites with no e.o infection. Assessment & Plan Remarks Morganella bacteremia source likely hand infection GNR and MRSA in finger tip cultures site of infection. Bilateral UE superficial ulcerations and blackening ? gangrene ? 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 Recs: Continue Cefepime IV Start Vanco IV in HD. Follow cultures Follow clinically Fariba King MD Dec 18, 2016 19:34
[2016-12-18] MEDS: CEFEPIME INJ 1,000 MG in SODIUM CHLORIDE 0.9% INJ 100 ML IV SCH (20:00)
[2016-12-18] MEDS ORDERED: BUPIVACAINE HCL PF 0.25% 30 ML VIAL ONE (21:07)
[2016-12-18] MEDS ORDERED: LIDOCAINE 2%/EPINEPHrine 1:100,000 30ML MDV ONE (21:08)
[2016-12-18] MEDS ORDERED: BACITRACIN TOP OINT 15 GM TUBE ONE (21:08)
[2016-12-18] MEDS ORDERED: NEOMYCIN/POLYMYXIN 1 ML G.U. IRRIGANT TOPICAL ONE (21:40)
--- NOTE | 2016-12-18 23:44 | PD.ORT.PN ---
Subjective Subjective Remarks 41yM pmhx significant for CAD, CHF, DM, Afib, Dialysis with wounds bilateral hands Objective Vitals Vital Signs Date Time Temp Pulse Resp B/P Pulse Ox O2 Delivery O2 Flow Rate FiO2 12/18/16 20:00 111 12/18/16 20:00 98.6 117 25 96/59 100 12/18/16 19:00 100 Nasal Cannula 4.00 12/18/16 18:00 108 12/18/16 16:00 97.7 102 22 95/54 100 12/18/16 13:04 97.4 109 15 97/56 100 12/18/16 10:04 100 Nasal Cannula 4.00 12/18/16 08:00 97.6 98 14 103/58 100 12/18/16 08:00 88 12/18/16 07:00 100 Nasal Cannula 4.00 12/18/16 06:00 103 12/18/16 04:00 97.7 82 13 99/58 100 12/18/16 04:00 82 12/18/16 02:00 94 12/18/16 00:00 97.9 114 24 107/71 100 12/18/16 00:00 114 I/O 12/17/16 12/17/16 12/17/16 12/18/16 12/18/16 12/18/16 07:00 15:00 23:00 07:00 15:00 23:00 Intake Total 100 ml 360 ml 201 ml 60 ml 690 ml Output Total 3000 ml Balance 100 ml 360 ml 201 ml 60 ml -2310 ml Intake Oral 100 ml 240 ml 120 ml 200 ml IV Total 120 ml 81 ml 60 ml 490 ml Output Hemodialysis 3000 ml # Voids 0 0 0 0 0 # Bowel Movements 1 Result Diagram: 12/18/16 0502 12/18/16 0502 Imaging Last 24 hours Impressions Lower Extremity Ultrasound 12/18/16 0000 Signed Impressions: Service Date/Time: Sunday, December 18, 2016 13:35 - CONCLUSION: No evidence of deep venous thrombosis within the lower extremities. Pastor Wade MD Lower Extremity Ultrasound 12/18/16 0000 Signed Impressions: Service Date/Time: Sunday, December 18, 2016 13:44 - CONCLUSION: Patent saphenous veins bilaterally as above Partha Bowman MD Objective Remarks Patient reports pain controlled. Dressings in place Assessment & Plan Assessment and Plan 41yM pmhx significant for CAD, CHF, DM, Afib, Dialysis POD 0 s/p revision amputation right index and ring fingers just proximal to DIP joints, I&D left ring finger and left thumb -MRI L hand showed no evidence of osteomyelitis left thumb -Patient tolerated procedure without complication. Appreciate cardiology and anesthesia input. Procedure performed under bilateral regional block -Appreciate vascular input to evaluate left fistula and evaluate potential for healing wounds -Patient understands still high risk for wound complications, need for additional amputation and surgeries -Recommend wound care evaluation for adjunct faculty for medical terminology dressings left thumb, possible evaluation by wound care clinic plastic surgeon for possible coverage if required -cultures sent as well as specimen, will continue to follow Jacqui Barrett MD Dec 18, 2016 23:44
[2016-12-19] VITALS (16 sets, daily range): BP systolic 80–149; BP diastolic 53–65; PULSE 81–114; RESP 10–20; TEMP 97.6–98.8; O2SAT 95–100
[2016-12-19] MEDS: RESP: ALBUTEROL 2.5 MG/IPRATROPIUM 0.5 MG NEB (SCH) NEB ×4 (02:48→21:04)
[2016-12-19] MEDS: CHLORHEXIDINE GLUCONATE 2 % 1 PACK (2 CLOTHS) TOP SCH (04:00)
[2016-12-19 04:57] LABS: AUTOMATED NEUTROPHIL # 5.2 TH/MM3 (1.8-7.7); BASOPHIL # 0.1 TH/MM3 (0-0.2); BASOPHIL % 0.9 % (0.0-2.0); EOSINOPHIL # 0.1 TH/MM3 (0-0.4); HEMATOCRIT 38.3 % (39.0-51.0); LYMPH % 7.4 % (9.0-44.0); LYMPHOCYTE # 0.5 TH/MM3 (1.0-4.8); MEAN CELL VOLUME 104.8 FL (80.0-100.0); MEAN CORPUSCULAR HEMOGLOBIN 32.2 PG (27.0-34.0); MEAN CORPUSCULAR HGB CONC 30.7 % (32.0-36.0); MONO % 9.1 % (0.0-8.0); NEUT % 81.6 % (16.0-70.0); PLATELET COUNT 97 TH/MM3 (150-450); RED BLOOD COUNT 3.65 MIL/MM3 (4.50-5.90); RED CELL DISTRIBUTION WIDTH 20.6 % (11.6-17.2); WHITE BLOOD COUNT 6.3 TH/MM3 (4.0-11.0)
[2016-12-19 05:27] LABS: HEMO FLAGS AUTO DIFF
[2016-12-19 05:30] LABS: BICARBONATE 22.8 MEQ/L (21.0-32.0); MAGNESIUM 2.5 MG/DL (1.5-2.5); POTASSIUM 4.5 MEQ/L (3.5-5.1)
[2016-12-19] MEDS: DILTIAZEM HCL 60 MG TAB PO SCH ×4 (06:07→16:41)
[2016-12-19] MEDS: HYDROmorphone HCL PF 1 MG/ML VIAL IV PUSH PRN (06:07)
[2016-12-19] MEDS: INSULIN ASPART SUPPLEMENTAL SCALE SQ SCH ×4 (06:33→21:07)
--- NOTE | 2016-12-19 07:47 | PD.CARD.PN ---
Subjective Subjective Remarks Pt c/o hand pain Objective Medications Current Medications Medications (Trade) Dose Ordered Sig/Ralph Route Start Time Stop Time Status Last Admin (Xanax) 0.5 mg HS PRN PO 12/16/16 02:45 (Aspirin) 325 mg DAILY PO 12/16/16 09:00 12/17/16 10:46 (Sensipar) 60 mg DAILY PO 12/16/16 09:00 12/18/16 10:11 (Protonix) 20 mg DAILY PO 12/16/16 09:00 12/18/16 10:11 (NS Flush) 2 ml UNSCH PRN .XX 12/16/16 03:00 (NS Flush) 2 ml BID .XX 12/16/16 09:00 12/18/16 21:00 (Tylenol) 650 mg Q6H PRN PO 12/16/16 03:00 (Zofran Inj) 4 mg Q6H PRN IV 12/16/16 03:00 (Ambien) 5 mg HS PRN PO 12/16/16 03:00 (Heparin Inj) 5,000 units Q8HR SQ 12/16/16 06:00 12/17/16 13:30 Miscellaneous Information 1 Q361D XX 12/16/16 03:00 (Chlorhexidine 2% Cloth) 3 pack Taper DAILY@04 TOP 12/16/16 04:00 12/12/17 03:59 (Chlorhexidine 2% Cloth) 3 pack UNSCH PRN TOP 12/16/16 03:00 (Janeth-Colace) 1 tab BID PO 12/16/16 09:00 12/18/16 10:11 (Senokot) 17.2 mg Q12H PRN PO 12/16/16 03:00 12/18/16 23:38 (Dulcolax Supp) 10 mg DAILY PRN RECTAL 12/16/16 03:00 (Lactulose Liq) 30 ml DAILY PRN PO 12/16/16 03:00 (D50w (Vial) Inj) 50 ml UNSCH PRN IV 12/16/16 05:15 (Glucagon Inj) 1 mg UNSCH PRN OTHER 12/16/16 05:15 Acetaminophen/ Hydrocodone Bitart 1 tab 1 tab Q4H PRN PO 12/16/16 05:45 12/17/16 18:41 (NS 1000 ml Inj) 1,000 ml @ 0 mls/hr Q0M PRN IV 12/16/16 08:47 Heparin Sodium (Porcine) 8000 units 8,000 units UNSCH PRN IVF 12/16/16 09:00 Sodium Chloride 1,000 ml @ 200 mls/hr Q5H PRN IV 12/16/16 08:47 (NS 1000 ml Inj) 1,000 ml @ 0 mls/hr Q0M PRN IV 12/16/16 08:47 (Mannitol Inj) 12.5 gm UNSCH PRN IV 12/16/16 09:00 (Albumin 25% Inj) 25 gm UNSCH PRN IV 12/16/16 09:00 (NS Flush) 5 ml UNSCH PRN IV FLUSH 12/16/16 09:00 (Zofran Inj) 4 mg UNSCH PRN IV 12/16/16 09:00 (Tylenol) 650 mg UNSCH PRN PO 12/16/16 09:00 (Benadryl) 25 mg UNSCH PRN PO 12/16/16 09:00 (Nitrostat Sl) 0.4 mg UNSCH PRN SL 12/16/16 09:00 (Gelfoam 12 Mm/7 Mm Top) 1 foam UNSCH PRN TOP 12/16/16 09:00 (Renvela) 2,400 mg TIDAC PO 12/16/16 12:00 12/17/16 13:46 (Cardizem) 60 mg Q6HR PO 12/16/16 15:00 12/19/16 06:07 (D50w (Vial) Inj) 25 ml UNSCH PRN IV PUSH 12/16/16 20:00 Mupirocin 1 applic 1 applic BID NASAL 12/17/16 09:00 12/18/16 10:11 Cefepime HCl 1000 mg/Sodium Chloride 100 ml @ 200 mls/hr Q24H IV 12/17/16 20:00 12/17/16 20:29 Diltiazem HCl 125 mg/Sodium Chloride 125 ml @ 0 mls/hr TITRATE PRN IV 12/18/16 14:15 (NS 250 ml Inj) 250 ml @ 250 mls/hr BOLUS PRN IV 12/18/16 14:15 (Dilaudid Pf Inj) 1 mg Q4H PRN IV PUSH 12/18/16 14:15 12/19/16 06:07 Vital Signs / I&O Vital Signs Date Time Temp Pulse Resp B/P Pulse Ox O2 Delivery O2 Flow Rate FiO2 12/19/16 06:00 98 12/19/16 04:00 97.8 89 18 95/53 100 12/19/16 04:00 89 12/19/16 02:49 98 Nasal Cannula 3.00 12/19/16 02:00 98 12/19/16 00:00 112 12/19/16 00:00 98.8 112 10 98/58 100 12/18/16 20:00 111 12/18/16 20:00 98.6 117 25 96/59 100 12/18/16 19:00 100 Nasal Cannula 4.00 12/18/16 18:00 108 12/18/16 16:00 97.7 102 22 95/54 100 12/18/16 13:04 97.4 109 15 97/56 100 12/18/16 10:04 100 Nasal Cannula 4.00 12/18/16 08:00 97.6 98 14 103/58 100 12/18/16 08:00 88 I/O 12/18/16 12/18/16 12/18/16 12/19/16 12/19/16 12/19/16 07:00 15:00 23:00 07:00 15:00 23:00 Intake Total 60 ml 690 ml 1200 ml Output Total 3000 ml Balance 60 ml -2310 ml 1200 ml Intake Oral 200 ml 1200 ml IV Total 60 ml 490 ml 0 ml Output Hemodialysis 3000 ml # Voids 0 0 # Bowel Movements 1 Physical Exam GENERAL: Well developed, well nourished. No acute distress. HEENT: Jugular venous pressure is normal. CHEST: Lungs clear to auscultation bilaterally. Unlabored respiratory effort. CARDIAC: irregular rate and rhythm without S3, S4, or murmur. ABDOMEN: Soft, EXTREMITIES: multiple amputations Laboratory Laboratory Tests Test 12/19/16 03:59 White Blood Count 6.3 TH/MM3 Red Blood Count 3.65 MIL/MM3 Hemoglobin 11.8 GM/DL Hematocrit 38.3 % Mean Corpuscular Volume 104.8 FL Mean Corpuscular Hemoglobin 32.2 PG Mean Corpuscular Hemoglobin 30.7 % Concent Red Cell Distribution Width 20.6 % Platelet Count 97 TH/MM3 Mean Platelet Volume 9.0 FL Neutrophils (%) (Auto) 81.6 % Lymphocytes (%) (Auto) 7.4 % Monocytes (%) (Auto) 9.1 % Eosinophils (%) (Auto) 1.0 % Basophils (%) (Auto) 0.9 % Neutrophils # (Auto) 5.2 TH/MM3 Lymphocytes # (Auto) 0.5 TH/MM3 Monocytes # (Auto) 0.6 TH/MM3 Eosinophils # (Auto) 0.1 TH/MM3 Basophils # (Auto) 0.1 TH/MM3 CBC Comment AUTO DIFF Sodium Level 132 MEQ/L Potassium Level 4.5 MEQ/L Chloride Level 95 MEQ/L Carbon Dioxide Level 22.8 MEQ/L Anion Gap 14 MEQ/L Blood Urea Nitrogen 50 MG/DL Creatinine 8.27 MG/DL Estimat Glomerular Filtration 7 ML/MIN Rate Random Glucose 317 MG/DL Calcium Level 7.7 MG/DL Phosphorus Level 6.7 MG/DL Magnesium Level 2.5 MG/DL Assessment and Plan Assessment and Plan AF- hypotensive with dilt, change to amio -back to eliquis s/p amputation of fingers ESRD on dialysis Kimberlee Martin MD Dec 19, 2016 07:47
[2016-12-19] MEDS: SODIUM CHLORIDE 0.9% FLUSH 10 ML FLUSH SCH ×2 (09:00→20:46)
[2016-12-19] MEDS: MUPIROCIN 2% OINT 1 APPLIC/GM SYR NASAL SCH ×2 (09:08→21:00)
[2016-12-19] MEDS: AMIODARONE 200 MG TAB PO SCH ×2 (09:09→21:00)
[2016-12-19] MEDS: PANTOPRAZOLE SOD 20 MG DELAYED RELEASE TAB PO SCH (09:09)
[2016-12-19] MEDS: DOCUSATE SODIUM 50 MG/SENNA 8.6 MG TAB PO SCH ×2 (09:09→20:49)
[2016-12-19] MEDS: CINACALCET HYDROCHLORIDE 30 MG TAB PO SCH (09:09)
[2016-12-19] MEDS: SEVELAMER CARBONATE 800 MG TAB PO SCH ×3 (09:09→19:05)
[2016-12-19] MEDS: APIXABAN 5 MG TABLET PO SCH ×2 (09:23→20:49)
--- NOTE | 2016-12-19 09:32 | HHI.PR ---
Subjective Remarks No nausea no vomiting. Patient complains of pain in his digits. He doesn't feel IV Dilaudid is helping. He does not demonstrate pain seeking behavior other than an attempt to control his pain. Objective Vital Signs Date Time Temp Pulse Resp B/P Pulse Ox O2 Delivery O2 Flow Rate FiO2 12/19/16 07:00 100 Nasal Cannula 4.00 12/19/16 06:00 98 12/19/16 04:00 97.8 89 18 95/53 100 12/19/16 04:00 89 12/19/16 02:49 98 Nasal Cannula 3.00 12/19/16 02:00 98 12/19/16 00:00 112 12/19/16 00:00 98.8 112 10 98/58 100 12/18/16 20:00 111 12/18/16 20:00 98.6 117 25 96/59 100 12/18/16 19:00 100 Nasal Cannula 4.00 12/18/16 19:00 100 Nasal Cannula 4.00 12/18/16 18:00 108 12/18/16 16:00 97.7 102 22 95/54 100 12/18/16 13:04 97.4 109 15 97/56 100 12/18/16 10:04 100 Nasal Cannula 4.00 I/O 12/18/16 12/18/16 12/18/16 12/19/16 12/19/16 12/19/16 06:59 14:59 22:59 06:59 14:59 22:59 Intake Total 60 ml 690 ml 1200 ml Output Total 3000 ml Balance 60 ml -2310 ml 1200 ml Intake Oral 200 ml 1200 ml IV Total 60 ml 490 ml 0 ml Output Hemodialysis 3000 ml # Voids 0 0 # Bowel Movements 1 Result Diagram: 12/19/16 0359 12/19/16 0359 Objective Remarks GENERAL: NAD, A&Ox3 HEAD: Normocephalic. NECK: Supple, trachea midline. No lymphadenopathy. EYES: No scleral icterus. No injection or drainage. CARDIOVASCULAR: Regular rate and rhythm without murmurs, gallops, or rubs. RESPIRATORY: Breath sounds equal bilaterally. No accessory muscle use. GASTROINTESTINAL: Abdomen soft, non-tender, nondistended. MUSCULOSKELETAL: No cyanosis, or edema. Bandages at first digit of left hand and fourth digit of left hand. Bandages and second digit of right hand and fourth digit of right hand. SKIN: Warm and dry. Chronic lesions and ulcers secondary to complications of renal disease/dialysis. NEURO: No focal neurological deficitis. A/P Problem List: (1) SUBACUTE OSTEOMYELITIS, LEFT HAND ICD Code: M86.242 (2) OTHER ACUTE OSTEOMYELITIS, LEFT HAND ICD Code: M86.142 (3) Non-healing ulcer ICD Code: L98.499 (4) End stage renal disease on dialysis ICD Code: N18.6 (5) Atrial fibrillation ICD Code: I48.91 (6) Cellulitis of hand ICD Code: L03.119 Assessment and Plan Assessment and Plan 41-year-old male admitted secondary to bilateral hand infections with history of end-stage renal disease. Bilateral Hand Infections Hand/Digit Osteomyelitis bilaterally Hand Cellulitis, Bilaterally wound culture growing gram-negative antwon and MRSA Blood cultures grew Morganella ID Following Continue cefepine and vancomycin Status post amputation of distal digits 2 and 4 at right hand and digit 4 at left hand. Changed PRN pain treatments with PO Dilaudid (4mg) and PRN breakthrough IV Morphine Monitor wounds Follow CBC Safe for transfer out of ICU today. End-stage renal disease Continue dialysis Nephrology following Monitor renal function Hypertension Stable today, but remains relatively low No resumption of baseline BP treatments yet Diabetes Insulin sliding scale Follow blood sugars Diabetic diet Atrial fibrillation status post ablation Continue by mouth Cardizem Start a beta ewelina once blood pressures are stabilized Continue aspirin Considering coumadin vs. elequis for [id number] of 2; after surgeries completed. Congestive heart failure EF of 25% in the past pt has refused AICD, but he is reconsidering when seen today. BB after procedures completed. Not a candidate for LISSA inhibitor secondary to hypotension and renal failure COPD No exacerbation Continue scheduled DuoNeb's When necessary duo nebs as needed DVT prophylaxis SCDs and heparin Discharge Planning Transfer out of ICU today Arnel Wing MD Dec 19, 2016 09:32
[2016-12-19 09:45] LABS: PLATELET ESTIMATE SMEAR LOW (NORMAL); PLATELET MORPHOLOGY NORMAL (NORMAL); SCAN/DIFF AUTO DIFF CONFIRMED
[2016-12-19] MEDS: HYDROmorphone HCL 4 MG TAB PO PRN ×2 (11:23→20:50)
--- NOTE | 2016-12-19 11:32 | PD.VS.PN ---
Subjective Subjective/Hospital Course Pt in bed in NAD S/P debridement of R 2nd/4th digits (index,ring) and L 1st,4th (thumb,ring) fingers Pain controlled LUE AVF accessed yesterday w/o difficulties Palpable bilat radial pulses Pt refused WBI exam Objective Vitals/I&O Date Time Temp Pulse Resp B/P Pulse Ox O2 Delivery O2 Flow Rate FiO2 12/19/16 10:15 100 Nasal Cannula 3.00 12/19/16 10:00 99 12/19/16 08:00 99 12/19/16 08:00 97.6 96 17 80/57 12/19/16 07:00 100 Nasal Cannula 4.00 12/19/16 06:00 98 12/19/16 04:00 97.8 89 18 95/53 100 12/19/16 04:00 89 12/19/16 02:49 98 Nasal Cannula 3.00 12/19/16 02:00 98 12/19/16 00:00 112 12/19/16 00:00 98.8 112 10 98/58 100 12/18/16 20:00 111 12/18/16 20:00 98.6 117 25 96/59 100 12/18/16 19:00 100 Nasal Cannula 4.00 12/18/16 19:00 100 Nasal Cannula 4.00 12/18/16 18:00 108 12/18/16 16:00 97.7 102 22 95/54 100 12/18/16 13:04 97.4 109 15 97/56 100 12/19/16 12/19/16 12/19/16 07:00 15:00 23:00 Intake Total 1200 ml Balance 1200 ml Physical Exam GENERAL: Pt resting in nad, GCS15 SKIN: Warm and dry/ Dressing c/d/i to R Index, ring fingers/ L thumb, index fingers/ pt w a hx of partial amputation L index/ full amp 3rd digit (middle) CARDIOVASCULAR: Irregular rate, hx of Pt with strong palpable Radial pulses bilat BUE warm with motor intact LUE AVF with + thrill Laboratory Laboratory Tests Test 12/19/16 03:59 White Blood Count 6.3 Red Blood Count 3.65 Hemoglobin 11.8 Hematocrit 38.3 Mean Corpuscular Volume 104.8 Mean Corpuscular Hemoglobin 32.2 Mean Corpuscular Hemoglobin 30.7 Concent Red Cell Distribution Width 20.6 Platelet Count 97 Mean Platelet Volume 9.0 Neutrophils (%) (Auto) 81.6 Lymphocytes (%) (Auto) 7.4 Monocytes (%) (Auto) 9.1 Eosinophils (%) (Auto) 1.0 Basophils (%) (Auto) 0.9 Neutrophils # (Auto) 5.2 Lymphocytes # (Auto) 0.5 Monocytes # (Auto) 0.6 Eosinophils # (Auto) 0.1 Basophils # (Auto) 0.1 CBC Comment AUTO DIFF Differential Comment AUTO DIFF CONFIRMED Platelet Estimate LOW Platelet Morphology Comment NORMAL Sodium Level 132 Potassium Level 4.5 Chloride Level 95 Carbon Dioxide Level 22.8 Anion Gap 14 Blood Urea Nitrogen 50 Creatinine 8.27 Estimat Glomerular Filtration 7 Rate Random Glucose 317 Calcium Level 7.7 Phosphorus Level 6.7 Magnesium Level 2.5 Date/Time Procedure Status Source Growth 12/18/16 22:30 Gram Stain - Final Resulted Wound Finger 12/18/16 22:30 Wound Culture Resulted Wound Finger Pending 12/18/16 22:30 Fungal Smear - Final Resulted Wound Finger RARE BUDDING YEAST WITH PSEUDOHYPHAE 12/18/16 22:30 Fungal Culture Resulted Wound Finger Pending 12/18/16 22:30 Acid Fast Stain Received Wound Finger Pending 12/18/16 22:30 Mycobacterial Culture Received Wound Finger Pending 12/18/16 22:30 Cancelled Wound Finger 12/18/16 19:00 Aerobic Blood Culture - Preliminary Resulted Blood Peripheral NO GROWTH IN 1 DAY 12/18/16 19:00 Anaerobic Blood Culture - Preliminary Resulted Blood Peripheral NO GROWTH IN 1 DAY Imaging Last 48 hours Impressions Lower Extremity Ultrasound 12/18/16 0000 Signed Impressions: Service Date/Time: Sunday, December 18, 2016 13:35 - CONCLUSION: No evidence of deep venous thrombosis within the lower extremities. 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 Ischemia for over two years Palpable radial pulses bilaterally Patient refusing WBIs AVF accessed w/o difficulties Plan Arranged for follow up in our Out Patient Clinic after discharge with WBIs Angelika MIXON [facility] [phone] Angelika Trinidad Dec 19, 2016 11:32
[2016-12-19] MEDS: MORPHINE SULFATE 4 MG/ML INJ IV PUSH PRN ×3 (13:04→23:49)
--- NOTE | 2016-12-19 13:33 | HHI.NPPN ---
Subjective History of Present Illness 41 year old male with ESRD, DM, PVD bilateral vascular disease in hands Additional Remarks feels depressed about his vascular disease Review of Systems General Constitutional: Fatigue Objective Data Data 12/18/16 12/19/16 19:00 07:00 Intake Total 690 ml 1200 ml Output Total 3000 ml Balance -2310 ml 1200 ml Intake Oral 200 ml 1200 ml IV Total 490 ml 0 ml Hemodialysis 3000 ml # Voids 0 # Bowel Movements 1 Vital Signs Date Time Temp Pulse Resp B/P Pulse Ox O2 Delivery O2 Flow Rate FiO2 12/19/16 12:24 97.6 87 16 81/54 12/19/16 12:00 99 12/19/16 10:15 100 Nasal Cannula 3.00 12/19/16 10:00 99 12/19/16 08:00 99 12/19/16 08:00 97.6 96 17 80/57 12/19/16 07:00 100 Nasal Cannula 4.00 12/19/16 06:00 98 12/19/16 04:00 97.8 89 18 95/53 100 12/19/16 04:00 89 12/19/16 02:49 98 Nasal Cannula 3.00 12/19/16 02:00 98 12/19/16 00:00 112 12/19/16 00:00 98.8 112 10 98/58 100 12/18/16 20:00 111 12/18/16 20:00 98.6 117 25 96/59 100 12/18/16 19:00 100 Nasal Cannula 4.00 12/18/16 19:00 100 Nasal Cannula 4.00 12/18/16 18:00 108 12/18/16 16:00 97.7 102 22 95/54 100 -: 12/19/16 0359 12/19/16 0359 Microbiology 12/18/16 Aerobic Blood Culture - Preliminary, Resulted NO GROWTH IN 1 DAY 12/18/16 Anaerobic Blood Culture - Preliminary, Resulted NO GROWTH IN 1 DAY 12/18/16 Aerobic Blood Culture - Preliminary, Resulted NO GROWTH IN 1 DAY 12/18/16 Anaerobic Blood Culture - Preliminary, Resulted NO GROWTH IN 1 DAY 12/18/16 Gram Stain - Final, Resulted 12/18/16 Wound Culture, Resulted Pending 12/18/16 Acid Fast Stain, Received Pending 12/18/16 Mycobacterial Culture, Received Pending 12/18/16 Fungal Smear - Final, Resulted NO FUNGAL ELEMENTS SEEN. 12/18/16 Fungal Culture, Resulted Pending 12/18/16 Gram Stain - Final, Resulted 12/18/16 Wound Culture, Resulted Pending 12/18/16 Acid Fast Stain, Received Pending 12/18/16 Mycobacterial Culture, Received Pending 12/18/16 Fungal Smear - Final, Resulted NO FUNGAL ELEMENTS SEEN. 12/18/16 Fungal Culture, Resulted Pending 12/18/16 Gram Stain - Final, Resulted 12/18/16 Wound Culture, Resulted Pending 12/18/16 Acid Fast Stain, Received Pending 12/18/16 Mycobacterial Culture, Received Pending 12/18/16 Fungal Smear - Final, Resulted RARE BUDDING YEAST WITH PSEUDOHYPHAE 12/18/16 Fungal Culture, Resulted Pending Physical Exam General Appearance: Well Developed Neck Neck Exam: Neck Supple Pulmonary Resp Exam: Clear Bilaterally, Breath Sounds Equal Cardiology CV Exam: Regular Gastrointestinal/Abdomen GI Exam: Soft, Non-Tender, Bowel Sounds Present Extremeties Extremities Exam: Moderate Edema Assessment/Plan Problem List: (1) End stage renal disease on dialysis Plan: PO4 getting better on Renvela/Sensipar HPTH PVD progression, he has vasculopathy progressive disease poor prognosis hand surgery had debridement done HD next tomorrow very depressed due to poor medical condition continue Sensipar (2) Cellulitis of hand Plan: on Vanco (3) Atrial fibrillation Plan: treated with Diltiazem (4) PVD (peripheral vascular disease) Plan: severe s/p debridement of both fingers prognosis poor Maricarmen Song MD Dec 19, 2016 13:33
--- NOTE | 2016-12-19 16:40 | PD.WCN.NOT ---
Wound Consult Description: L thumb, L Ring finger, R index finger, and R Ring finger Communicated with: Doctor Jacqui Barrett and ANDI Alvarez [facility] Recommendation: Please cleanse L thumb, L Ring finger, R Ring finger and R index finger with normal saline pat dry. Apply oil emulsion gauze just over wounds to L thumb and L ring finger and cover with optifoam AG non adhesive dressing. Secure with rolled gauze and tape change dressing every 2 days or PRN. Please cover surgical incision to R ring finger and R index finger with Xeroform gauze in single layer just over incisions and cover with dry gauze, secured with rolled gauze and tape.Change dressings daily or PRN if saturated or dislodged Additional Information: Patient seen on [address] [place] [address] for evaluation of wounds to L thumb, L ring finger, R index finger and R ring finger. Removed dressing in place to L thumb and L ring finger to reveal open wounds. Wound to L thumb presents with ~50% red non granulation tissue that is vascular and ~50% white tissue. Wound drainage is sanguinous and minimal without odor. Periwound is unremarkable. Wound measures 2.3cm x 4cm x ~0.1 cm .L ring finger presents with no fingernail and open wound to nail bed. Wound measures ~1cm x ~1.5 cm x ~0.1 cm. Wound is noted with red clean non granulation tissue. Scant sanguinous drainage noted when cleansed with normal saline and gauze pad that is without odor. Periwound is unremarkable. Applied oil emulsion gauze to wounds to L Ring finger and L thumb. Covered wounds with Optifoam AG non adhesive dressing and secured with rolled gauze and tape. Removed dressings in place to R ring finger and R index finger. R index finger and R ring finger wounds present as well approximated surgical incisions closed with sutures. Wounds are dry and sutures are intact. Cleansed wounds with normal saline and covered with oil emulsion gauze secured with dry gauze, rolled gauze and tape. Ayesha Daniel [facility] Dec 19, 2016 16:40
[2016-12-19] MEDS: CEFEPIME INJ 1,000 MG in SODIUM CHLORIDE 0.9% INJ 100 ML IV SCH (20:41)
[2016-12-20] VITALS (8 sets, daily range): BP systolic 93–128; BP diastolic 53–69; PULSE 95–109; RESP 16–18; TEMP 98–98.7; O2SAT 93–98
[2016-12-20] MEDS: CHLORHEXIDINE GLUCONATE 2 % 1 PACK (2 CLOTHS) TOP SCH (04:00)
[2016-12-20] MEDS: RESP: ALBUTEROL 2.5 MG/IPRATROPIUM 0.5 MG NEB (SCH) NEB (04:26)
[2016-12-20] MEDS: INSULIN ASPART SUPPLEMENTAL SCALE SQ SCH ×4 (05:33→21:13)
[2016-12-20 06:53] LABS: HEMATOCRIT 39.1 % (39.0-51.0); MEAN CELL VOLUME 104.4 FL (80.0-100.0); MEAN CORPUSCULAR HEMOGLOBIN 32.6 PG (27.0-34.0); MEAN CORPUSCULAR HGB CONC 31.2 % (32.0-36.0); PLATELET COUNT 93 TH/MM3 (150-450); RED BLOOD COUNT 3.74 MIL/MM3 (4.50-5.90); RED CELL DISTRIBUTION WIDTH 20.2 % (11.6-17.2); WHITE BLOOD COUNT 7.4 TH/MM3 (4.0-11.0)
[2016-12-20 07:05] LABS: INTERNATIONAL NORMALIZED RATIO 1.1 RATIO; PROTHROMBIN TIME - PATIENT 11.7 SEC (9.8-11.6)
[2016-12-20 07:13] LABS: BICARBONATE 18.8 MEQ/L (21.0-32.0)
[2016-12-20 07:22] LABS: REVIEW FLAG FINAL
--- NOTE | 2016-12-20 07:41 | PD.CARD.PN ---
Subjective Subjective Remarks Pt without cv complaints Objective Medications Current Medications Medications (Trade) Dose Ordered Sig/Ralph Route Start Time Stop Time Status Last Admin (Xanax) 0.5 mg HS PRN PO 12/16/16 02:45 (Sensipar) 60 mg DAILY PO 12/16/16 09:00 12/19/16 09:09 (Protonix) 20 mg DAILY PO 12/16/16 09:00 12/19/16 09:09 (NS Flush) 2 ml UNSCH PRN .XX 12/16/16 03:00 (NS Flush) 2 ml BID .XX 12/16/16 09:00 12/19/16 20:46 (Tylenol) 650 mg Q6H PRN PO 12/16/16 03:00 (Zofran Inj) 4 mg Q6H PRN IV 12/16/16 03:00 (Ambien) 5 mg HS PRN PO 12/16/16 03:00 Miscellaneous Information 1 Q361D XX 12/16/16 03:00 (Chlorhexidine 2% Cloth) 3 pack Taper DAILY@04 TOP 12/16/16 04:00 12/12/17 03:59 (Chlorhexidine 2% Cloth) 3 pack UNSCH PRN TOP 12/16/16 03:00 (Janeth-Colace) 1 tab BID PO 12/16/16 09:00 12/19/16 09:09 (Senokot) 17.2 mg Q12H PRN PO 12/16/16 03:00 12/18/16 23:38 (Dulcolax Supp) 10 mg DAILY PRN RECTAL 12/16/16 03:00 (Lactulose Liq) 30 ml DAILY PRN PO 12/16/16 03:00 (D50w (Vial) Inj) 50 ml UNSCH PRN IV 12/16/16 05:15 Glucagon 1 mg 1 mg UNSCH PRN OTHER 12/16/16 05:15 (NS 1000 ml Inj) 1,000 ml @ 0 mls/hr Q0M PRN IV 12/16/16 08:47 Heparin Sodium (Porcine) 8000 units 8,000 units UNSCH PRN IVF 12/16/16 09:00 Sodium Chloride 1,000 ml @ 200 mls/hr Q5H PRN IV 12/16/16 08:47 (NS 1000 ml Inj) 1,000 ml @ 0 mls/hr Q0M PRN IV 12/16/16 08:47 (Mannitol Inj) 12.5 gm UNSCH PRN IV 12/16/16 09:00 (Albumin 25% Inj) 25 gm UNSCH PRN IV 12/16/16 09:00 (NS Flush) 5 ml UNSCH PRN IV FLUSH 12/16/16 09:00 (Zofran Inj) 4 mg UNSCH PRN IV 12/16/16 09:00 (Benadryl) 25 mg UNSCH PRN PO 12/16/16 09:00 (Nitrostat Sl) 0.4 mg UNSCH PRN SL 12/16/16 09:00 (Gelfoam 12 Mm/7 Mm Top) 1 foam UNSCH PRN TOP 12/16/16 09:00 (Renvela) 2,400 mg TIDAC PO 12/16/16 12:00 12/19/16 19:05 (D50w (Vial) Inj) 25 ml UNSCH PRN IV PUSH 12/16/16 20:00 Mupirocin 1 applic 1 applic BID NASAL 12/17/16 09:00 12/19/16 09:08 Cefepime HCl 1000 mg/Sodium Chloride 100 ml @ 200 mls/hr Q24H IV 12/17/16 20:00 12/19/16 20:41 (NS 250 ml Inj) 250 ml @ 250 mls/hr BOLUS PRN IV 12/18/16 14:15 (Eliquis) 5 mg BID PO 12/19/16 09:00 12/19/16 20:49 (Cordarone) 400 mg Q12HR PO 12/19/16 09:00 12/19/16 21:00 (Dilaudid) 4 mg Q4H PRN PO 12/19/16 09:15 12/19/16 20:50 (Morphine Inj) 3 mg Q4H PRN IV PUSH 12/19/16 09:15 12/19/16 23:49 Vital Signs / I&O Vital Signs Date Time Temp Pulse Resp B/P Pulse Ox O2 Delivery O2 Flow Rate FiO2 12/20/16 04:12 98.1 105 18 93/56 93 12/19/16 23:34 98.6 106 18 99/55 98 12/19/16 21:05 95 Nasal Cannula 4.00 12/19/16 20:58 98.1 114 18 115/57 100 12/19/16 19:06 18 12/19/16 16:00 97.8 111 20 134/58 98 12/19/16 15:27 97 12/19/16 14:00 94 12/19/16 12:24 97.6 87 16 81/54 12/19/16 12:00 99 12/19/16 10:15 100 Nasal Cannula 3.00 12/19/16 10:00 99 12/19/16 08:00 99 12/19/16 08:00 97.6 96 17 80/57 I/O 12/19/16 12/19/16 12/19/16 12/20/16 12/20/16 12/20/16 07:00 15:00 23:00 07:00 15:00 23:00 Intake Total 1200 ml 720 ml 240 ml 0 ml Output Total 0 ml 0 ml Balance 1200 ml 720 ml 240 ml 0 ml Intake Oral 1200 ml 720 ml 240 ml 0 ml IV Total 0 ml 0 ml Output Urine Total 0 ml Stool Total 0 ml # Voids 0 0 # Bowel Movements 0 0 Physical Exam GENERAL: Well developed, well nourished. No acute distress. HEENT: Jugular venous pressure is normal. CHEST: Lungs clear to auscultation bilaterally. Unlabored respiratory effort. CARDIAC: irregular rate and rhythm without S3, S4, or murmur. ABDOMEN: Soft, EXTREMITIES: multiple amputations Laboratory Laboratory Tests Test 12/20/16 06:02 White Blood Count 7.4 TH/MM3 Red Blood Count 3.74 MIL/MM3 Hemoglobin 12.2 GM/DL Hematocrit 39.1 % Mean Corpuscular Volume 104.4 FL Mean Corpuscular Hemoglobin 32.6 PG Mean Corpuscular Hemoglobin 31.2 % Concent Red Cell Distribution Width 20.2 % Platelet Count 93 TH/MM3 Mean Platelet Volume 8.9 FL Prothrombin Time 11.7 SEC Prothromb Time International 1.1 RATIO Ratio Sodium Level 126 MEQ/L Potassium Level 5.0 MEQ/L Chloride Level 92 MEQ/L Carbon Dioxide Level 18.8 MEQ/L Anion Gap 15 MEQ/L Blood Urea Nitrogen 69 MG/DL Creatinine 9.79 MG/DL Estimat Glomerular Filtration 6 ML/MIN Rate Random Glucose 181 MG/DL Calcium Level 8.1 MG/DL Assessment and Plan Assessment and Plan AF- reasonable rate control with amio, ok for hospitalization- -on eliquis s/p amputation of fingers ESRD on dialysis available PRN Kimberlee Martin MD Dec 20, 2016 07:41
[2016-12-20] MEDS: SEVELAMER CARBONATE 800 MG TAB PO SCH ×3 (08:00→17:00)
[2016-12-20] MEDS: CINACALCET HYDROCHLORIDE 30 MG TAB PO SCH (09:00)
[2016-12-20] MEDS: SODIUM CHLORIDE 0.9% FLUSH 10 ML FLUSH SCH ×2 (09:00→21:08)
[2016-12-20] MEDS: MUPIROCIN 2% OINT 1 APPLIC/GM SYR NASAL SCH ×2 (09:00→21:00)
[2016-12-20] MEDS: DOCUSATE SODIUM 50 MG/SENNA 8.6 MG TAB PO SCH ×2 (09:00→21:00)
[2016-12-20] MEDS: APIXABAN 5 MG TABLET PO SCH ×2 (09:00→21:00)
[2016-12-20] MEDS: AMIODARONE 200 MG TAB PO SCH (09:00)
[2016-12-20] MEDS: PANTOPRAZOLE SOD 20 MG DELAYED RELEASE TAB PO SCH (09:00)
--- NOTE | 2016-12-20 09:45 | HHI.PR ---
Subjective Remarks Patient rested well today. Appears to have better pain control. No signs of tachycardia. Objective Vital Signs Date Time Temp Pulse Resp B/P Pulse Ox O2 Delivery O2 Flow Rate FiO2 12/20/16 04:12 98.1 105 18 93/56 93 12/19/16 23:34 98.6 106 18 99/55 98 12/19/16 21:05 95 Nasal Cannula 4.00 12/19/16 20:58 98.1 114 18 115/57 100 12/19/16 19:06 18 12/19/16 16:00 97.8 111 20 134/58 98 12/19/16 15:27 97 12/19/16 14:00 94 12/19/16 12:24 97.6 87 16 81/54 12/19/16 12:00 99 12/19/16 10:15 100 Nasal Cannula 3.00 12/19/16 10:00 99 I/O 12/19/16 12/19/16 12/19/16 12/20/16 12/20/16 12/20/16 07:00 15:00 23:00 07:00 15:00 23:00 Intake Total 1200 ml 720 ml 240 ml 0 ml Output Total 0 ml 0 ml Balance 1200 ml 720 ml 240 ml 0 ml Intake Oral 1200 ml 720 ml 240 ml 0 ml IV Total 0 ml 0 ml Output Urine Total 0 ml Stool Total 0 ml # Voids 0 0 # Bowel Movements 0 0 Result Diagram: 12/20/16 0602 12/20/16 0602 Objective Remarks GENERAL: NAD, A&Ox3 HEAD: Normocephalic. NECK: Supple, trachea midline. No lymphadenopathy. EYES: No scleral icterus. No injection or drainage. CARDIOVASCULAR: Regular rate and rhythm without murmurs, gallops, or rubs. RESPIRATORY: Breath sounds equal bilaterally. No accessory muscle use. GASTROINTESTINAL: Abdomen soft, non-tender, nondistended. MUSCULOSKELETAL: No cyanosis, or edema. Bandages at first digit of left hand and fourth digit of left hand. Bandages and second digit of right hand and fourth digit of right hand. SKIN: Warm and dry. Chronic lesions and ulcers secondary to complications of renal disease/dialysis. NEURO: No focal neurological deficitis. A/P Problem List: (1) SUBACUTE OSTEOMYELITIS, LEFT HAND ICD Code: M86.242 (2) OTHER ACUTE OSTEOMYELITIS, LEFT HAND ICD Code: M86.142 (3) Non-healing ulcer ICD Code: L98.499 (4) End stage renal disease on dialysis ICD Code: N18.6 (5) Atrial fibrillation ICD Code: I48.91 (6) Cellulitis of hand ICD Code: L03.119 Assessment and Plan Assessment and Plan 41-year-old male admitted secondary to bilateral hand infections with history of end-stage renal disease. Continue antibiotics. Monitor sodium levels. No need for sodium supplements at this point. Physical therapy added to patient's treatment plan. Follow sodium level with repeat lab, lab ordered. Bilateral Hand Infections Hand/Digit Osteomyelitis bilaterally Hand Cellulitis, Bilaterally wound culture growing gram-negative antwon and MRSA Blood cultures grew Morganella ID Following Continue cefepine and vancomycin Status post amputation of distal digits 2 and 4 at right hand and digit 4 at left hand. Changed PRN pain treatments with PO Dilaudid (4mg) and PRN breakthrough IV Morphine Monitor wounds Follow CBC Safe for transfer out of ICU today. End-stage renal disease Continue dialysis Nephrology following Monitor renal function Hypertension Stable today, but remains relatively low No resumption of baseline BP treatments yet Diabetes Insulin sliding scale Follow blood sugars Diabetic diet Atrial fibrillation status post ablation Continue by mouth Cardizem Start a beta ewelina once blood pressures are stabilized Continue aspirin Considering coumadin vs. elequis for CFFT4ctir of 2; after surgeries completed. Congestive heart failure EF of 25% in the past pt has refused AICD, but he is reconsidering when seen today. BB after procedures completed. Not a candidate for LISSA inhibitor secondary to hypotension and renal failure COPD No exacerbation Continue scheduled DuoNeb's When necessary duo nebs as needed DVT prophylaxis SCDs and heparin Discharge Planning Transfer out of ICU today Arnel Wing MD Dec 20, 2016 09:45
[2016-12-20] MEDS: MORPHINE SULFATE 4 MG/ML INJ IV PUSH PRN (11:37)
--- NOTE | 2016-12-20 12:03 | MP ---
cc: JACQUI BARRETT DATE OF SURGERY: 12/18/2016 PREOPERATIVE DIAGNOSIS Chronic wounds bilateral hands including osteomyelitis right index and ring finger, paronychia left ring finger, deep abscess left thumb. POSTOPERATIVE DIAGNOSIS Chronic wounds bilateral hands including osteomyelitis right index and ring finger, paronychia left ring finger, deep abscess left thumb. PROCEDURE 1. Revision amputation right index finger just proximal to the distal interphalangeal joint. 2. Revision amputation right ring finger just proximal to the distal interphalangeal joint. 3. Incision and drainage of paronychia, left ring finger. 4. Incision and drainage of deep soft tissue abscess, left thumb. SURGEON Dr. Jacqui Barrett ANESTHESIA Regional block. TOURNIQUET TIME None. SPECIMEN Cultures as well as pathology. INDICATION FOR PROCEDURE Lebron Stahl is a patient known to me with past medical history very significant for coronary artery disease, CHF, cardiomyopathy, atrial fibrillation, diabetes on dialysis, status post multiple nonhealing wounds in bilateral hands. I had performed a partial amputation of the left middle finger in the past and this has healed. The patient recently presented to the hospital for draining wounds over the right index and ring finger as well as left ring and thumb as well as uncontrolled atrial fibrillation as well as glucose. Please see the consult note for full details. The patient elected to proceed with possible irrigation and debridement of all the wounds, possible revision amputation surgery as indicated, and he elected to proceed. He understands he is at extremely high risk for complications including sepsis, , need for additional amputation of the fingers, pain, paresthesias, again need for additional procedures and he elected to proceed. DESCRIPTION OF PROCEDURE The patient was identified in the preoperative holding area and the correct extremity was marked. A regional block of both arms was performed by Dr. Bird of anesthesia. The patient was brought to the operating room without any complications. Both upper extremities were prepped and draped in a normal sterile fashion with no tourniquet. Attention was first turned to the right upper extremity. There was obvious purulence coming from the distal phalanx of both the index and ring fingers. Attention was first turned to the index finger. A culture was taken. There was significant destruction of the distal phalanx. Upon making the skin incision the decision was made to perform revision amputation of the right index finger. Initially I planned to perform the amputation through the DIP joint but the closure of the skin was tight due to the of significant infection so a saw was used to slightly cut the middle phalanx back slightly proximally. The edges of the bone were smoothed with a rasp and then neurectomies were performed. The wound was irrigated with three liters of antibiotic saline. Attention was then turned to the ring finger where a similar procedure was performed. Again, there was significant purulence from the finger which was sent for culture. Amputation was again performed just proximal to the DIP joint with the saw. The wound was irrigated and neurectomies were performed. Both wounds were irrigated with antibiotic saline and closed loosely with chromic. The tissue on the ring finger seemed slightly less viable than the index finger but had good capillary refill. I did not want to extend the amputation proximal to the insertion of the FDS if possible. Again these wounds were closed with chromic and the patient was placed into a soft dressing without any complication. He tolerated this under regional block without any complication. Attention was then turned to the left hand. There was purulence coming from the left ring finger nail which was sent for culture. The nail was removed. Upon irrigating the wound there was no opening in the nail bed so the decision was made to perform incision and drainage of the abscess, no amputation. Attention was then turned to the left thumb where there was a large eschar approximately 3 x 2 cm over the left thumb IP joint. There was again purulence coming from this and this was debrided and sent for culture. There appeared to be some destruction of the extensor pollicis longus but the infection did not appear to go into the joint. Again both wounds were irrigated with three liters of antibiotic saline and nonadherent dressings were placed. The patient tolerated this without complication. I will consult Wound Care for management of the thumb wound. Vascular surgery is evaluating the vascularity of the hands for potential healing. The patient knows that he is at very high risk for persistent problems with the hands, persistent need for additional and more proximal amputations and states he will be compliant with all treatment course. MD CHARMAINE Suarez/JOVANI /11:53 PM /11:42 AM ALISSA
--- NOTE | 2016-12-20 12:40 | HHI.NPPN ---
Subjective History of Present Illness 41 year old male with ESRD, DM, PVD bilateral vascular disease in hands Additional Remarks feels depressed about his vascular disease Review of Systems General Constitutional: Fatigue Objective Data Data 12/19/16 12/20/16 19:00 07:00 Intake Total 720 ml 240 ml Output Total 0 ml 0 ml Balance 720 ml 240 ml Intake Oral 720 ml 240 ml IV Total 0 ml Output Urine Total 0 ml Stool Total 0 ml # Voids 0 0 # Bowel Movements 0 Vital Signs Date Time Temp Pulse Resp B/P Pulse Ox O2 Delivery O2 Flow Rate FiO2 12/20/16 10:23 98 Nasal Cannula 3.00 12/20/16 04:12 98.1 105 18 93/56 93 12/19/16 23:34 98.6 106 18 99/55 98 12/19/16 21:05 95 Nasal Cannula 4.00 12/19/16 20:58 98.1 114 18 115/57 100 12/19/16 19:06 18 12/19/16 16:00 97.8 111 20 134/58 98 12/19/16 15:27 97 12/19/16 14:00 94 -: 12/20/16 0602 12/20/16 0602 Physical Exam General Appearance: Well Developed Neck Neck Exam: Neck Supple Pulmonary Resp Exam: Clear Bilaterally, Breath Sounds Equal Cardiology CV Exam: Regular Gastrointestinal/Abdomen GI Exam: Soft, Non-Tender, Bowel Sounds Present Extremeties Extremities Exam: Moderate Edema Assessment/Plan Problem List: (1) End stage renal disease on dialysis Plan: he has high PO4 on Renvela/Sensipar HPTH discussed again PVD progression, he has vasculopathy MRSA on Vancomycin progressive disease poor prognosis HD M,W,F continue Sensipar (2) Cellulitis of hand (3) Atrial fibrillation Plan: treated with Diltiazem (4) PVD (peripheral vascular disease) Plan: severe prognosis poor (5) MRSA (methicillin resistant staph aureus) culture positive Plan: on Vancomycin Maricarmen Song MD Dec 20, 2016 12:40
[2016-12-20] MEDS: VANCOMYCIN INJ 1,500 MG in SODIUM CHLORID 0.9% 500 ML INJ 500 ML IV SCH (16:56)
--- NOTE | 2016-12-20 19:06 | RADRPT ---
EXAM DATE/TIME: 12/20/2016 18:37 [facility] COMPARISON: No previous studies available for comparison. INDICATIONS : Status post multiple tuft amputations. MEDICAL HISTORY : None. SURGICAL HISTORY : None. ENCOUNTER: Subsequent ACUITY: 2 days PAIN SCORE: 3/10 LOCATION: Right Hand FINDINGS: There amputations of the second and fourth fingers at the middle phalanx. Extensive vascular calcific ations present. No acute fracture or dislocation. CONCLUSION: 1. Amputation of the second and fourth fingers at the middle phalanx. Extensive vascular calcificatio ns. Refugio Perez MD on December 20, 2016 at 19:03 Board Certified Radiologist. This report was verified electronically.
[2016-12-20] MEDS ORDERED: MORPHINE SULFATE 4 MG/ML INJ IV PUSH ONE (21:00)
[2016-12-20] MEDS: CEFEPIME INJ 1,000 MG in SODIUM CHLORIDE 0.9% INJ 100 ML IV SCH (21:00)
[2016-12-21] VITALS (7 sets, daily range): BP systolic 91–106; BP diastolic 56–68; PULSE 77–102; RESP 18–20; TEMP 97.5–98.2; O2SAT 95–99
[2016-12-21] MEDS: CHLORHEXIDINE GLUCONATE 2 % 1 PACK (2 CLOTHS) TOP SCH (04:00)
[2016-12-21] MEDS: INSULIN ASPART SUPPLEMENTAL SCALE SQ SCH ×4 (06:50→20:25)
[2016-12-21 08:19] LABS: HEMATOCRIT 38.8 % (39.0-51.0); MEAN CELL VOLUME 102.3 FL (80.0-100.0); MEAN CORPUSCULAR HEMOGLOBIN 33.3 PG (27.0-34.0); MEAN CORPUSCULAR HGB CONC 32.5 % (32.0-36.0); PLATELET COUNT 92 TH/MM3 (150-450); RED BLOOD COUNT 3.79 MIL/MM3 (4.50-5.90); RED CELL DISTRIBUTION WIDTH 19.7 % (11.6-17.2); WHITE BLOOD COUNT 7.2 TH/MM3 (4.0-11.0)
[2016-12-21 08:26] LABS: REVIEW FLAG FINAL
[2016-12-21 08:34] LABS: BICARBONATE 22.1 MEQ/L (21.0-32.0); POTASSIUM 4.8 MEQ/L (3.5-5.1)
[2016-12-21] MEDS: DOCUSATE SODIUM 50 MG/SENNA 8.6 MG TAB PO SCH ×2 (08:54→20:22)
[2016-12-21] MEDS: PANTOPRAZOLE SOD 20 MG DELAYED RELEASE TAB PO SCH (08:54)
[2016-12-21] MEDS: SEVELAMER CARBONATE 800 MG TAB PO SCH ×3 (08:54→16:35)
[2016-12-21] MEDS: AMIODARONE 200 MG TAB PO SCH (08:55)
[2016-12-21] MEDS: APIXABAN 5 MG TABLET PO SCH ×2 (08:55→20:23)
[2016-12-21] MEDS: MUPIROCIN 2% OINT 1 APPLIC/GM SYR NASAL SCH ×2 (08:55→20:23)
[2016-12-21] MEDS: CINACALCET HYDROCHLORIDE 30 MG TAB PO SCH (08:55)
[2016-12-21] MEDS: SODIUM CHLORIDE 0.9% FLUSH 10 ML FLUSH SCH ×2 (10:37→20:23)
[2016-12-21] MEDS: MORPHINE SULFATE 4 MG/ML INJ IV PUSH PRN (10:37)
--- NOTE | 2016-12-21 14:26 | HHI.PR ---
Subjective Remarks Patient is eager to discharge. All of his cultures have not fully resulted. He is asked to be patient. Objective Vital Signs Date Time Temp Pulse Resp B/P Pulse Ox O2 Delivery O2 Flow Rate FiO2 12/21/16 12:04 97.8 77 20 106/59 95 12/21/16 08:04 98.0 96 20 91/56 95 12/21/16 08:00 95 Nasal Cannula 4.00 21 Humidified 12/21/16 04:25 98.2 95 18 101/58 96 12/20/16 23:50 98.7 102 16 94/69 95 12/20/16 20:00 Nasal Cannula 4.00 Humidified 12/20/16 20:00 101 12/20/16 19:48 98.7 109 16 108/56 97 12/20/16 17:22 98 Nasal Cannula 3.00 I/O 12/20/16 12/20/16 12/20/16 12/21/16 12/21/16 12/21/16 07:00 15:00 23:00 07:00 15:00 23:00 Intake Total 0 ml 240 ml 480 ml 480 ml Output Total 0 ml 6000 ml 0 ml Balance 0 ml 240 ml -5520 ml 480 ml Intake Oral 0 ml 240 ml 480 ml 480 ml Output Urine Total 0 ml 0 ml 0 ml Hemodialysis 6000 ml # Bowel Movements 0 0 0 Result Diagram: 12/21/1672912/21/16 0730 Objective Remarks GENERAL: NAD, A&Ox3 HEAD: Normocephalic. NECK: Supple, trachea midline. No lymphadenopathy. EYES: No scleral icterus. No injection or drainage. CARDIOVASCULAR: Regular rate and rhythm without murmurs, gallops, or rubs. RESPIRATORY: Breath sounds equal bilaterally. No accessory muscle use. GASTROINTESTINAL: Abdomen soft, non-tender, nondistended. MUSCULOSKELETAL: No cyanosis, or edema. Bandages at first digit of left hand and fourth digit of left hand. Bandages and second digit of right hand and fourth digit of right hand. SKIN: Warm and dry. Chronic lesions and ulcers secondary to complications of renal disease/dialysis. NEURO: No focal neurological deficitis. A/P Problem List: (1) SUBACUTE OSTEOMYELITIS, LEFT HAND ICD Code: M86.242 (2) OTHER ACUTE OSTEOMYELITIS, LEFT HAND ICD Code: M86.142 (3) Non-healing ulcer ICD Code: L98.499 (4) End stage renal disease on dialysis ICD Code: N18.6 (5) Atrial fibrillation ICD Code: I48.91 (6) Cellulitis of hand ICD Code: L03.119 Assessment and Plan Assessment and Plan 41-year-old male admitted secondary to bilateral hand infections with history of end-stage renal disease. Continue antibiotics. Follow cultures. Discharge pending clearance from infectious disease and surgery. Bilateral Hand Infections Hand/Digit Osteomyelitis bilaterally Hand Cellulitis, Bilaterally wound culture growing gram-negative antwon and MRSA Blood cultures grew Morganella ID Following Continue cefepine and vancomycin Status post amputation of distal digits 2 and 4 at right hand and digit 4 at left hand. Changed PRN pain treatments with PO Dilaudid (4mg) and PRN breakthrough IV Morphine Monitor wounds Follow CBC Safe for transfer out of ICU today. End-stage renal disease Continue dialysis Nephrology following Monitor renal function Hypertension Stable today, but remains relatively low No resumption of baseline BP treatments yet Diabetes Insulin sliding scale Follow blood sugars Diabetic diet Atrial fibrillation status post ablation Continue by mouth Cardizem Start a beta ewelina once blood pressures are stabilized Continue aspirin Considering coumadin vs. elequis for [id number] of 2; after surgeries completed. Congestive heart failure EF of 25% in the past pt has refused AICD, but he is reconsidering when seen today. BB after procedures completed. Not a candidate for LISSA inhibitor secondary to hypotension and renal failure COPD No exacerbation Continue scheduled DuoNeb's When necessary duo nebs as needed DVT prophylaxis SCDs and heparin Discharge Planning Plan for discharge to home with outpatient antibiotics. Arnel Wing MD Dec 21, 2016 14:26
[2016-12-21] MEDS ORDERED: MORPHINE SULFATE 15 MG TAB PO PRN (14:45)
[2016-12-21] MEDS ORDERED: MSIR15 PO (15:37)
--- NOTE | 2016-12-21 16:48 | HHI.NPPN ---
Subjective History of Present Illness 41 year old male with ESRD, DM, PVD bilateral vascular disease in hands Additional Remarks feels depressed about his vascular disease Review of Systems General Constitutional: Fatigue Objective Data Data 12/20/16 12/21/16 19:00 07:00 Intake Total 240 ml 960 ml Output Total 6000 ml 0 ml Balance -5760 ml 960 ml Intake Oral 240 ml 960 ml Output Urine Total 0 ml Hemodialysis 6000 ml # Bowel Movements 0 Vital Signs Date Time Temp Pulse Resp B/P Pulse Ox O2 Delivery O2 Flow Rate FiO2 12/21/16 12:04 97.8 77 20 106/59 95 12/21/16 08:04 98.0 96 20 91/56 95 12/21/16 08:00 95 Nasal Cannula 4.00 21 Humidified 12/21/16 04:25 98.2 95 18 101/58 96 12/20/16 23:50 98.7 102 16 94/69 95 12/20/16 20:00 Nasal Cannula 4.00 Humidified 12/20/16 20:00 101 12/20/16 19:48 98.7 109 16 108/56 97 12/20/16 17:22 98 Nasal Cannula 3.00 -: 12/21/16 0730 12/21/16 0730 Physical Exam General Appearance: Well Developed Neck Neck Exam: Neck Supple Pulmonary Resp Exam: Clear Bilaterally, Breath Sounds Equal Cardiology CV Exam: Regular Gastrointestinal/Abdomen GI Exam: Soft, Non-Tender, Bowel Sounds Present Extremeties Extremities Exam: Moderate Edema Assessment/Plan Problem List: (1) End stage renal disease on dialysis Plan: he has high PO4 on Renvela/Sensipar [facility] discussed again PVD progression, he has vasculopathy MRSA on Vancomycin progressive disease poor prognosis HD M,W,F continue Sensipar (2) Cellulitis of hand (3) Atrial fibrillation Plan: treated with Diltiazem (4) PVD (peripheral vascular disease) Plan: severe prognosis poor (5) MRSA (methicillin resistant staph aureus) culture positive Plan: on Vancomycin Maricarmen Song MD Dec 21, 2016 16:48
[2016-12-21] MEDS: CEFEPIME INJ 1,000 MG in SODIUM CHLORIDE 0.9% INJ 100 ML IV SCH (20:23)
[2016-12-22] VITALS (9 sets, daily range): BP systolic 92–116; BP diastolic 51–65; PULSE 82–101; RESP 20; TEMP 97.3–97.7; O2SAT 97–99
[2016-12-22] MEDS: CHLORHEXIDINE GLUCONATE 2 % 1 PACK (2 CLOTHS) TOP SCH (01:26)
[2016-12-22] MEDS: INSULIN ASPART SUPPLEMENTAL SCALE SQ SCH ×4 (06:16→21:00)
[2016-12-22 07:52] LABS: HEMATOCRIT 39.3 % (39.0-51.0); MEAN CELL VOLUME 102.9 FL (80.0-100.0); MEAN CORPUSCULAR HEMOGLOBIN 32.7 PG (27.0-34.0); MEAN CORPUSCULAR HGB CONC 31.8 % (32.0-36.0); PLATELET COUNT 91 TH/MM3 (150-450); RED BLOOD COUNT 3.82 MIL/MM3 (4.50-5.90); RED CELL DISTRIBUTION WIDTH 19.4 % (11.6-17.2); WHITE BLOOD COUNT 6.6 TH/MM3 (4.0-11.0)
[2016-12-22 07:58] LABS: REVIEW FLAG FINAL
[2016-12-22 08:16] LABS: BICARBONATE 21.8 MEQ/L (21.0-32.0)
[2016-12-22] MEDS: CINACALCET HYDROCHLORIDE 30 MG TAB PO SCH (09:04)
[2016-12-22] MEDS: APIXABAN 5 MG TABLET PO SCH ×2 (09:04→21:19)
[2016-12-22] MEDS: AMIODARONE 200 MG TAB PO SCH (09:04)
[2016-12-22] MEDS: PANTOPRAZOLE SOD 20 MG DELAYED RELEASE TAB PO SCH (09:04)
[2016-12-22] MEDS: SODIUM CHLORIDE 0.9% FLUSH 10 ML FLUSH SCH ×2 (09:05→21:21)
[2016-12-22] MEDS: DOCUSATE SODIUM 50 MG/SENNA 8.6 MG TAB PO SCH ×2 (09:05→21:00)
[2016-12-22] MEDS: MUPIROCIN 2% OINT 1 APPLIC/GM SYR NASAL SCH ×2 (09:05→21:21)
[2016-12-22] MEDS: MORPHINE SULFATE 4 MG/ML INJ IV PUSH PRN (09:17)
[2016-12-22] MEDS: SEVELAMER CARBONATE 800 MG TAB PO SCH ×3 (09:17→17:01)
--- NOTE | 2016-12-22 10:17 | PD.ORT.PN ---
Subjective Subjective Remarks 41yM pmhx significant for CAD, CHF, DM, Afib, Dialysis POD4 s/p revision amputation right index and ring fingers & I&D left ring finger and thumb. Patient anxious to go home. States he can arrange home care nurse to perform dressing changes. Objective Vitals Vital Signs Date Time Temp Pulse Resp B/P Pulse Ox O2 Delivery O2 Flow Rate FiO2 12/22/16 08:00 97.3 91 20 94/52 99 12/22/16 04:38 98 Nasal Cannula 3.00 12/22/16 04:00 97.7 82 20 116/60 98 12/22/16 00:00 97.6 92 20 108/62 98 12/21/16 21:00 102 12/21/16 20:00 97.5 98 20 102/68 99 12/21/16 18:19 16 12/21/16 16:04 97.9 80 20 104/66 98 12/21/16 12:04 97.8 77 20 106/59 95 I/O 12/21/16 12/21/16 12/21/16 12/22/16 12/22/16 12/22/16 07:00 15:00 23:00 07:00 15:00 23:00 Intake Total 480 ml 445 ml 240 ml 0 ml Output Total 0 ml 420 ml 0 ml 0 ml Balance 480 ml 25 ml 240 ml 0 ml Intake Oral 480 ml 420 ml 240 ml 0 ml IV Total 25 ml Output Urine Total 0 ml 420 ml 0 ml 0 ml Stool Total 0 ml # Voids 0 # Bowel Movements 0 0 1 Result Diagram: 12/22/16 0713 12/22/16 0713 Imaging Last 24 hours Impressions Lower Extremity Ultrasound 12/18/16 0000 Signed Impressions: Service Date/Time: Sunday, December 18, 2016 13:35 - CONCLUSION: No evidence of deep venous thrombosis within the lower extremities. Pastor Wade MD Lower Extremity Ultrasound 12/18/16 0000 Signed Impressions: Service Date/Time: Sunday, December 18, 2016 13:44 - CONCLUSION: Patent saphenous veins bilaterally as above Partha Bowman MD Objective Remarks Dressings removed. Chromic sutures in place over right index and ring finger revision amputation sites without purulence, good capillary refill to flaps at this time. able to flex PIP joints. Granulation tissue in place over left ring finger nail bed and left thumb, able to fire fpl, fdp, good capillary refill to left thumb and ring fingers Assessment & Plan Assessment and Plan 41yM pmhx significant for CAD, CHF, DM, Afib, Dialysis POD 4 s/p revision amputation right index and ring fingers through middle phalanx just proximal to DIP joints, I&D left ring finger and left thumb -Appreciate vascular input to evaluate left fistula and evaluate potential for healing wounds -Patient understands still high risk for wound complications, need for additional amputation and surgeries -Cultures + Morganelli, MRSA, maxime, Appreciate ID input, Likely d/c on IV Ab to possibly be performed while patient at dialysis. Okay to discharge only once antibiotics arranged -Appreciate wound care input regarding dressings. Patient may followup in wound clinic or my clinic for postoperative wound care. May eventually require plastic surgery consult for left thumb wound -Will continue to follow Jacqui Barrett MD Dec 22, 2016 10:17
--- NOTE | 2016-12-22 12:09 | HHI.PR ---
Subjective Remarks Situation discussed with the patient. I informed him that IV antibiotic arrangements would not be possible till tomorrow at earliest. I said I would try to discharge him after IV antibiotics and dialysis occur tomorrow. He is agreeable with staying for next 24 hours. His wounds are doing well postop. Pain control is still a problem. He said morphine has caused stomach upset. Options were discussed and he would like to try oxycodone. Objective Vital Signs Date Time Temp Pulse Resp B/P Pulse Ox O2 Delivery O2 Flow Rate FiO2 12/22/16 08:00 97.3 91 20 94/52 99 12/22/16 04:38 98 Nasal Cannula 3.00 12/22/16 04:00 97.7 82 20 116/60 98 12/22/16 00:00 97.6 92 20 108/62 98 12/21/16 21:00 102 12/21/16 20:00 97.5 98 20 102/68 99 12/21/16 18:19 16 12/21/16 16:04 97.9 80 20 104/66 98 I/O 12/21/16 12/21/16 12/21/16 12/22/16 12/22/16 12/22/16 07:00 15:00 23:00 07:00 15:00 23:00 Intake Total 480 ml 445 ml 240 ml 0 ml Output Total 0 ml 420 ml 0 ml 0 ml Balance 480 ml 25 ml 240 ml 0 ml Intake Oral 480 ml 420 ml 240 ml 0 ml IV Total 25 ml Output Urine Total 0 ml 420 ml 0 ml 0 ml Stool Total 0 ml # Voids 0 # Bowel Movements 0 0 1 Result Diagram: 12/22/16 0713 12/22/16712 Objective Remarks GENERAL: NAD, A&Ox3 HEAD: Normocephalic. NECK: Supple, trachea midline. No lymphadenopathy. EYES: No scleral icterus. No injection or drainage. CARDIOVASCULAR: Regular rate and rhythm without murmurs, gallops, or rubs. RESPIRATORY: Breath sounds equal bilaterally. No accessory muscle use. GASTROINTESTINAL: Abdomen soft, non-tender, nondistended. MUSCULOSKELETAL: No cyanosis, or edema. Bandages at first digit of left hand and fourth digit of left hand. Bandages and second digit of right hand and fourth digit of right hand. SKIN: Warm and dry. Chronic lesions and ulcers secondary to complications of renal disease/dialysis. NEURO: No focal neurological deficitis. A/P Problem List: (1) SUBACUTE OSTEOMYELITIS, LEFT HAND ICD Code: M86.242 (2) OTHER ACUTE OSTEOMYELITIS, LEFT HAND ICD Code: M86.142 (3) Non-healing ulcer ICD Code: L98.499 (4) End stage renal disease on dialysis ICD Code: N18.6 (5) Atrial fibrillation ICD Code: I48.91 (6) Cellulitis of hand ICD Code: L03.119 Assessment and Plan Assessment and Plan 41-year-old male admitted secondary to bilateral hand infections with history of end-stage renal disease. Continue antibiotics. Follow cultures. Discharge pending outpatient IV antibiotic arrangements, which will likely be possible starting tomorrow. Stop by mouth morphine and start by mouth oxycodone for as needed pain control. Bilateral Hand Infections Hand/Digit Osteomyelitis bilaterally Hand Cellulitis, Bilaterally wound culture growing gram-negative antwon and MRSA Blood cultures grew Morganella ID Following Continue cefepine and vancomycin Status post amputation of distal digits 2 and 4 at right hand and digit 4 at left hand. Changed PRN pain treatments with PO Dilaudid (4mg) and PRN breakthrough IV Morphine Monitor wounds Follow CBC Safe for transfer out of ICU today. End-stage renal disease Continue dialysis Nephrology following Monitor renal function Hypertension Stable today, but remains relatively low No resumption of baseline BP treatments yet Diabetes Insulin sliding scale Follow blood sugars Diabetic diet Atrial fibrillation status post ablation Continue by mouth Cardizem Start a beta ewelina once blood pressures are stabilized Continue aspirin Considering coumadin vs. elequis for [id number] of 2; after surgeries completed. Congestive heart failure EF of 25% in the past pt has refused AICD, but he is reconsidering when seen today. BB after procedures completed. Not a candidate for LISSA inhibitor secondary to hypotension and renal failure COPD No exacerbation Continue scheduled DuoNeb's When necessary duo nebs as needed DVT prophylaxis SCDs and heparin Discharge Planning Plan for discharge to home with outpatient antibiotics. Arnel Wing MD Dec 22, 2016 12:09
--- NOTE | 2016-12-22 17:04 | HHI.NPPN ---
Subjective History of Present Illness 41 year old male with ESRD, DM, PVD bilateral vascular disease in hands Additional Remarks feels depressed about his vascular disease Review of Systems General Constitutional: Fatigue Objective Data Data 12/21/16 12/22/16 19:00 07:00 Intake Total 445 ml 240 ml Output Total 420 ml 0 ml Balance 25 ml 240 ml Intake Oral 420 ml 240 ml IV Total 25 ml Output Urine Total 420 ml 0 ml Stool Total 0 ml # Voids 0 # Bowel Movements 0 1 Vital Signs Date Time Temp Pulse Resp B/P Pulse Ox O2 Delivery O2 Flow Rate FiO2 12/22/16 16:00 97.6 82 20 104/51 97 12/22/16 12:00 97.6 89 20 92/65 99 12/22/16 09:26 Nasal Cannula 4.00 12/22/16 09:26 101 12/22/16 08:00 97.3 91 20 94/52 99 12/22/16 04:38 98 Nasal Cannula 3.00 12/22/16 04:00 97.7 82 20 116/60 98 12/22/16 00:00 97.6 92 20 108/62 98 12/21/16 21:00 102 12/21/16 20:00 97.5 98 20 102/68 99 12/21/16 18:19 16 -: 12/22/16 0713 12/22/16 0713 Physical Exam General Appearance: Well Developed Neck Neck Exam: Neck Supple Pulmonary Resp Exam: Clear Bilaterally, Breath Sounds Equal Cardiology CV Exam: Regular Gastrointestinal/Abdomen GI Exam: Soft, Non-Tender, Bowel Sounds Present Extremeties Extremities Exam: Moderate Edema Assessment/Plan Problem List: (1) End stage renal disease on dialysis Plan: he has high PO4 on Renvela/Sensipar [facility] discussed again PVD progression, he has vasculopathy MRSA on Vancomycin progressive disease poor prognosis next dialysis on Friday HD M,W,F continue Sensipar (2) Cellulitis of hand (3) Atrial fibrillation Plan: treated with Diltiazem (4) PVD (peripheral vascular disease) Plan: severe prognosis poor (5) MRSA (methicillin resistant staph aureus) culture positive Plan: on Vancomycin Maricarmen Song MD Dec 22, 2016 17:04
[2016-12-22] MEDS: CEFEPIME INJ 1,000 MG in SODIUM CHLORIDE 0.9% INJ 100 ML IV SCH (21:20)
[2016-12-23] VITALS: BP 108/54; PULSE 99; RESP 20; TEMP 97.9; O2SAT 98
[2016-12-23 04:00] VITALS: BP 102/68; PULSE 93; RESP 18; TEMP 97.9; O2SAT 97
[2016-12-23] MEDS: CHLORHEXIDINE GLUCONATE 2 % 1 PACK (2 CLOTHS) TOP SCH (04:00)
[2016-12-23] MEDS: INSULIN ASPART SUPPLEMENTAL SCALE SQ SCH ×2 (06:48→11:00)
[2016-12-23 08:00] VITALS: BP 106/61; PULSE 75; PULSE 87; RESP 20; TEMP 97.4; O2SAT 95
[2016-12-23] MEDS: SEVELAMER CARBONATE 800 MG TAB PO SCH ×2 (08:00→12:00)
[2016-12-23] MEDS ORDERED: VANC10IN IV (08:26)
[2016-12-23] MEDS ORDERED: EPIN1INJ21 SQ (08:26)
[2016-12-23] MEDS ORDERED: SOLU250I IV PUSH (08:26)
[2016-12-23] MEDS ORDERED: EPIN1INJ21 IV PUSH (08:26)
--- NOTE | 2016-12-23 08:34 | HHI.FF ---
cc: Maricarmen Song MD Infusion Therapy Location of Infusion Therapy: Dialysis Center Patient Information Appointment Date: Dec 23, 2016 Patient Weight 103.6 kg Diagnosis: Coded Allergies: Haldol (Verified Allergy, Severe, THROAT CLOSES UP, 12/15/16) Reglan (Verified Allergy, Severe, Irritability/Anxiety, 12/15/16) DYSTONIC REACTION Azithromycin (Verified Allergy, Intermediate, anxiety and itching, 12/15/16 ) Zosyn (Verified Allergy, Unknown, 12/17/16) Pt reports he is not sure. Thinks he may have recd Keflex as outpt. Clonidine (Verified Adverse Reaction, Severe, 12/15/16) PT STATES HE GOES COMATOSE OR GETS VERY CRAZY, MEMORY LOSS Dilaudid (Verified Adverse Reaction, Severe, becomes belligerent and out of control , 12/15/16) pt states does not have a allergy to this med Ativan (Verified Adverse Reaction, Intermediate, MAKES ANXIETY WORSE, 12/15) *MDRO Multi-Drug Resistant Organism (Verified Adverse Reaction, Unknown, ) MRSA (back)-10/13/16 MRSA (blood & ankle) - 04/2014; (buttock & chest) - 10/2015; (finger) - 12/23/15; (sputum) - 12/25/15; (Finger Wound) - 01/2016 MRSA PCR Screen POSITIVE - 01/10/15, 12/23/15, 02/25/16, MRSA (finger) 12/15/16 MRSA (finger) 12/15/16 12/16/16 MRSA & Klebsiella pneumoniae ESBL Pos (finger wound) - 02/07/16 Uncoded Allergies: ANTIEMETICS ( PER PT ALL ) (Adverse Reaction, Unknown, MAKES " ME CRAZY ", 11/21/15) Administer Medication Vancomycin 1.5 grams IV q 48 hours w/Hemodialysis M,W,F (If days switched ok to Switch Vanco days as well for those days of HD.) Start Treatment: Dec 23, 2016 Stop Treatment: Jan 27, 2017 Additional Information Additional Medications Levaquin 500 mg po every other day for total of 42 day period. Diflucan 200 mg po daily for 30 days. Venous access: Other (HD fistula site on HD days) Additional Instructions [x] Peripheral flush and dressing changes per protocol [x] Implanted port and central smoking pipe liner: * Implanted port: 10 ml Normal Saline followed by 5 ml Heparin 100 units/ml Heparin flush after each use and monthly to maintain. [] May leave port accessed during therapy. [] May leave peripheral site accessed for duration of therapy. [x] If patient has SOB or respiratory distress, check oxygen saturation. If less than 90% or clinical signs of respiratory distress, administer oxygen at 2 L/min. via nasal cannula and notify physician. [x] Anaphylaxis/Reaction orders: * Stop infusion. * Keep IV line open with saline flush. * Notify physician. * Monitor vital signs every 15 minutes until symptoms resolve. * Check Oxygen saturation; Oxygen at 2 L/min. via nasal cannula if less than 90% or clinical signs of respiratory distress. * Administer diphenhydramine (Benadryl) 25 mg IV STAT, (unless patient has received as pre-med). May repeat once, if necessary. * Solu-Cortef 250 mg IVP over 30-60 seconds, use 100 mg vials for each dissolution. * Epinephrine (1mg/1 ml) 0.3 mg subcutaneously or IVP now with any signs of respiratory distress. * Check with physician for new additional pre-med orders if patient is re- challenged or re-treated. [x] May remove PICC line when treatment complete, after confirming with Physician. [x] If the patient is admitted to the hospital, the ED, or transferred via [facility] , complete transfer form including medication reconciliation order sheet. Laboratory Tests Weekly Labs: CBC w/diff, Creatinine, LFT's (Hepatic function test), Vancomycin Trough (target trough 15-20 to be managed by in HD) Additional Information Please draw weekly labs, Call with abnormals, change in clinical condition or problems to: or covering ID physician Follow up appt: Patient to schedule follow up appt with Dr. Jacqui Barrett in 1 week from [facility], [place]. Follow up with PCP Follow up with other MDs as planned. Counseling: Counseled about medication side effects Fariba King MD Dec 23, 2016 08:34
[2016-12-23] MEDS ORDERED: LEVA500T20 PO (08:37)
[2016-12-23] MEDS ORDERED: DIFL200T PO (08:38)
[2016-12-23] MEDS: AMIODARONE 200 MG TAB PO SCH (09:00)
[2016-12-23] MEDS ORDERED: LEVOFLOXACIN 500 MG TAB PO ONE (09:00)
[2016-12-23] MEDS ORDERED: OXYC-395 PO (10:05)
--- NOTE | 2016-12-23 10:15 | HHI.DS ---
Discharge Summary Admission Date Dec 15, 2016 at 10:25 pm Discharge Date: Dec 23, 2016 Admitting Diagnosis A FIB RVR w/ hypotension; elevated troponin I; hyperkalemia; celluli (1) SUBACUTE OSTEOMYELITIS, LEFT HAND ICD Code: M86.242 Diagnosis: Principal (2) OTHER ACUTE OSTEOMYELITIS, LEFT HAND ICD Code: M86.142 Diagnosis: Principal (3) Cellulitis and abscess of hand ICD Code: L03.119 Diagnosis: Principal (4) MRSA (methicillin resistant staph aureus) culture positive ICD Code: Z22.322 Diagnosis: Principal Procedures Dialysis Further distal digit amputations of 4 digits Brief History - From Admission 41-year-old male presents by private transportation for evaluation of generalized weakness nausea vomiting and multiple areas of draining wounds and abscesses affecting the upper extremities. 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 Patient was last treated with antibiotic IV vancomycin during hemodialysis 2 weeks ago for multiple skin infections. Patient states continued to have ongoing skin issues specifically of the bilateral hands and upper back. Patient states he had no issues with his right BKA stump. Patient was seen in the emergency department 10/27/16 and Bactrim was added to his antibiotic regimen. Patient states that while he was receiving dialysis which is scheduled Friday and Fridays he was also receiving vancomycin IV. CBC/BMP: 12/22/16 0713 12/22/16 0713 Significant Findings Laboratory Tests Test 12/21/16 12/22/16 07:30 07:13 Red Blood Count 3.79 MIL/MM3 3.82 MIL/MM3 (4.50-5.90) (4.50-5.90) Hemoglobin 12.6 GM/DL 12.5 GM/DL (13.0-17.0) (13.0-17.0) Hematocrit 38.8 % (39.0-51.0) Mean Corpuscular Volume 102.3 FL 102.9 FL (80.0-100.0) (80.0-100.0) Red Cell Distribution Width 19.7 % 19.4 % (11.6-17.2) (11.6-17.2) Platelet Count 92 TH/MM3 91 TH/MM3 (150-450) (150-450) Sodium Level 131 MEQ/L 128 MEQ/L (136-145) (136-145) Chloride Level 90 MEQ/L 88 MEQ/L (98-107) (98-107) Anion Gap 19 MEQ/L (5-15) 18 MEQ/L (5-15) Blood Urea Nitrogen 54 MG/DL (7-18) 68 MG/DL (7-18) Creatinine 8.39 MG/DL 9.82 MG/DL (0.60-1.30) (0.60-1.30) Estimat Glomerular Filtration 7 ML/MIN (>89) 6 ML/MIN (>89) Rate Random Glucose 204 MG/DL 249 MG/DL (74-106) (74-106) Calcium Level 8.2 MG/DL 8.0 MG/DL (8.5-10.1) (8.5-10.1) Mean Corpuscular Hemoglobin 31.8 % Concent (32.0-36.0) Hospital Course Mr. Stahl is a 41-year-old male. He was admitted secondary to A. fib RVR with hypotension and also had bilateral hand infections. He has end-stage renal disease at baseline and has complications with poor vasculature and skin integrity at the lesions. He's had multiple amputations. At this visit he had an I&D and further amputation of 4 digits. Ostomy mellitus is present on the left hand. He will need long-term IV antibiotics. IV antibiotics arranged to occur with dialysis. At this point is medically stable for discharge with continuation of treatment as an outpatient. Follow-up with surgery as an outpatient. Pt Condition on Discharge: Stable Discharge Disposition: Discharge Home Discharge Time: <= 30 minutes Discharge Instructions DIET: Follow Instructions for: Renal Failure Diet Activities you can perform: Regular-No Restrictions Follow up Referrals: Appointment for Follow Up - 1 Week @ Hand Surgeon with Jacqui Barrett MD PCP Follow-up - 2 Weeks Vascular Surgery @ Vascular Surgery with Frank Lester V. DO New Medications: Epinephrine Inj (Epinephrine Inj) 1 Mg/Ml Inj 0.3 MG IV PUSH ONCE PRN ALLERGIC REACTION #1 VIAL Epinephrine Inj (Epinephrine Inj) 1 Mg/Ml Inj 0.3 MG SQ ONCE Give with any signs of respiratory distress. PRN ALLERGIC REACTION #1 VIAL Fluconazole (Diflucan) 200 Mg Tab 200 MG PO DAILY Osteomyelitis finger Days 15 Ref 0 TAB Hydrocortisone Inj (Solu-Cortef Inj) 250 Mg Inj 250 MG IV PUSH ONCE Give over 30-60 seconds. PRN ALLERGIC REACTION #1 Ref 0 VIAL Levofloxacin (Levaquin) 500 Mg Tablet 500 MG PO EVERY OTHER DAY Morganella infection finger Days 30 Ref 0 TAB Vancomycin Inj (Vancomycin Inj) 10 Gm Inj 1500 MG IV WITH DIALYSIS Osteomyelitis of Right finger Days 42 Ref 0 VIAL Morphine IR (Morphine IR) 15 Mg Tab 15 MG PO Q4H PRN Pain 4 to 10 #60 TAB Oxycodone (Oxycodone) 10 Mg Tab 10 MG PO Q4H PRN Pain 4 to 10 #30 TAB Continued Medications: Alprazolam (Xanax) 0.5 Mg Tab 0.5 MG PO HS PRN ANXIETY Ref 0 TAB Aspirin (Aspirin) 325 Mg Tab 325 MG PO DAILY #30 Ref 0 TAB Calcium Acetate (Phosphate Bin (Calcium Acetate) 667 Mg Cap 4 TAB PO ACHS Cinacalcet (Sensipar) 60 Mg Tab 60 MG PO DAILY #30 Ref 0 TAB Insulin Aspart Inj (Novolog Inj) 1,000 Unit/10 Ml Vial 0 SQ DIRECTED Sliding Scale as directed. Blood Sugar Management #10 Ref 0 ML Omeprazole (Omeprazole) 20 Mg Tab 20 MG PO DAILY #30 Ref 0 TAB Discontinued Medications: Hydrocodone-Acetaminophen (Hydrocodone-Acetaminophen) 10-325 mg Tab 1 TAB PO Q4H PRN PAIN Ref 0 TAB Arnel Wing MD Dec 23, 2016 10:15 am
[2016-12-23 10:26] VITALS: O2SAT 95
--- NOTE | 2016-12-23 10:29 | HHI.NPPN ---
Subjective History of Present Illness 41 year old male with ESRD, DM, PVD bilateral vascular disease in hands Additional Remarks feels depressed about his vascular disease Review of Systems General Constitutional: Fatigue Objective Data Data 12/22/16 12/23/16 19:00 07:00 Intake Total 240 ml 580 ml Output Total 0 ml 0 ml Balance 240 ml 580 ml Intake Oral 240 ml 480 ml IV Total 100 ml Output Urine Total 0 ml 0 ml # Voids 1 # Bowel Movements 0 1 Vital Signs Date Time Temp Pulse Resp B/P Pulse Ox O2 Delivery O2 Flow Rate FiO2 12/23/16 10:26 95 Nasal Cannula 3.00 12/23/16 08:00 97.4 87 20 106/61 95 12/23/16 04:00 97.9 93 18 102/68 97 12/23/16 00:00 97.9 99 20 108/54 98 12/22/16 20:09 98 Nasal Cannula 3.00 12/22/16 20:00 97.5 89 20 108/65 98 12/22/16 20:00 87 12/22/16 19:00 Nasal Cannula 4.00 12/22/16 16:00 97.6 82 20 104/51 97 12/22/16 12:00 97.6 89 20 92/65 99 -: 12/22/16 0713 12/22/16 0713 Physical Exam General Appearance: Well Developed Neck Neck Exam: Neck Supple Pulmonary Resp Exam: Clear Bilaterally, Breath Sounds Equal Cardiology CV Exam: Regular Gastrointestinal/Abdomen GI Exam: Soft, Non-Tender, Bowel Sounds Present Extremeties Extremities Exam: Moderate Edema Assessment/Plan Problem List: (1) End stage renal disease on dialysis Plan: he has high PO4 on Renvela/Sensipar HPTH PVD progression, he has vasculopathy MRSA on Vancomycin progressive disease poor prognosis next dialysis on Friday HD M,W,F continue Sensipar seen during dialysis UF 4 L as tolerated can be dc follow up at dialysis center (2) Cellulitis of hand (3) Atrial fibrillation Plan: treated with Diltiazem (4) PVD (peripheral vascular disease) Plan: severe prognosis poor (5) MRSA (methicillin resistant staph aureus) culture positive Plan: on Vancomycin Maricarmen Song MD Dec 23, 2016 10:28
[2016-12-23] MEDS: VANCOMYCIN INJ 1,500 MG in SODIUM CHLORID 0.9% 500 ML INJ 500 ML IV SCH (10:35)
--- NOTE | 2016-12-23 13:44 | HHI.FF ---
Face to Face Verification Diagnosis: (1) OTHER ACUTE OSTEOMYELITIS, LEFT HAND (2) SUBACUTE OSTEOMYELITIS, LEFT HAND (3) Cellulitis and abscess of hand (4) MRSA (methicillin resistant staph aureus) culture positive Home Health Nursing Order: Wound care and dressing changes I have seen patient Lebron Stahl on 12/23/16. My clinical findings support the need for the requested home health care services because: Ltd mobility - disease progression Limited ability to care for self Infection w/ risk of complications I certify that my clinical findings support that this patient is homebound because: Post-op weakness Unsteady gait/balance Arnel Wing MD Dec 23, 2016 1:44 pm
[2016-12-23] MEDS: PANTOPRAZOLE SOD 20 MG DELAYED RELEASE TAB PO SCH (13:48)
[2016-12-23] MEDS: CINACALCET HYDROCHLORIDE 30 MG TAB PO SCH (13:49)
[2016-12-23] MEDS: APIXABAN 5 MG TABLET PO SCH (13:49)
[2016-12-23 13:53] VITALS: BP 91/51; PULSE 94; RESP 18; TEMP 97.5; O2SAT 94
[2016-12-25] MEDS ORDERED: LEVOFLOXACIN 250 MG TAB PO SCH (09:00)
== END 2016-12-23 16:32 | disposition home or self-care (01) | DRG 513 ==
LOC: PHED 19:39 → PHEDA 22:25 → N03A 12-16 00:59 → N04B 12-19 16:36
PROVIDERS: ADMIT Hospitalist; ATTEND Hospitalist
PROC: 5A1D60Z (ICD-10-PCS; 2016-12-16)
PROC: 0X6S0Z3 Detachment at Right Ring Finger, Low, Open Approach (ICD-10-PCS; 2016-12-18)
PROC: 0HDQXZZ Extraction of Finger Nail, External Approach (ICD-10-PCS; 2016-12-18)
PROC: 0H9GXZX Drainage of Left Hand Skin, External Approach, Diagnostic (ICD-10-PCS; 2016-12-18)
PROC: 0J9K0ZX Drainage of Left Hand Subcutaneous Tissue and Fascia, Open Approach, Diagnostic (ICD-10-PCS; 2016-12-18)
PROC: 0X6N0Z2 Detachment at Right Index Finger, Mid, Open Approach (ICD-10-PCS; principal; 2016-12-18 21:14)
DX: T87.41 Infection of amputation stump, right upper extremity (principal); N18.6 End stage renal disease; I13.2 Hypertensive heart and chronic kidney disease with heart failure and with stage 5 chronic kidney disease, or end stage renal disease; I42.9 Cardiomyopathy, unspecified; M86.142 Other acute osteomyelitis, left hand; E11.22 Type 2 diabetes mellitus with diabetic chronic kidney disease; E11.51 Type 2 diabetes mellitus with diabetic peripheral angiopathy without gangrene; I95.9 Hypotension, unspecified; L02.512 Cutaneous abscess of left hand; M86.641 Other chronic osteomyelitis, right hand; E11.69 Type 2 diabetes mellitus with other specified complication; I48.2 Chronic atrial fibrillation; I50.9 Heart failure, unspecified; I25.10 Atherosclerotic heart disease of native coronary artery without angina pectoris; Z99.2 Dependence on renal dialysis; Z89.511 Acquired absence of right leg below knee; M06.9 Rheumatoid arthritis, unspecified; Z86.73 Personal history of transient ischemic attack (TIA), and cerebral infarction without residual deficits; K21.9 Gastro-esophageal reflux disease without esophagitis; I25.2 Old myocardial infarction; Z86.14 Personal history of Methicillin resistant Staphylococcus aureus infection; Z79.4 Long term (current) use of insulin; E87.5 Hyperkalemia; G47.30 Sleep apnea, unspecified; D63.8 Anemia in other chronic diseases classified elsewhere; F31.9 Bipolar disorder, unspecified; F17.210 Nicotine dependence, cigarettes, uncomplicated; Z91.19 Patient's noncompliance with other medical treatment and regimen; L03.012 Cellulitis of left finger; B95.62 Methicillin resistant Staphylococcus aureus infection as the cause of diseases classified elsewhere; E11.65 Type 2 diabetes mellitus with hyperglycemia; E78.00 Pure hypercholesterolemia, unspecified; J44.9 Chronic obstructive pulmonary disease, unspecified; T36.0X5A Adverse effect of penicillins, initial encounter; Y83.5 Amputation of limb(s) as the cause of abnormal reaction of the patient, or of later complication, without mention of misadventure at the time of the procedure
CPT/HCPCS: 71010; 73120; 73130; 73218; 80048; 80053; 80069; 82306; 82948; 83036; 83605; 83735; 83970; 84100; 84484; 85007; 85025; 85027; 85610; 85730; 86403; 87015; 87040; 87070; 87077; 87102; 87116; 87147; 87186; 87205; 87206; 87641; 88305; 88311; 90935; 93005; 93970; 93998; 94640; 94664; 96365; 96374; 96375; J0692; J1160; J1170; J1200; J1644; J1815; J2250; J2270; J2543; J2795; J3370; J7030; J7040; P9045

== ENCOUNTER 2017-03-23 06:00 | Inpatient (IN) | payer MEDICARE, OTHER ==
[~2017-03-23] VITALS: Ht 180.3 cm; Wt 100.0 kg
[~2017-03-23 06:00] MED LIST changes: -BACT800T5 PO; +CALC667C PO; -CYMB60CA PO; +DIFL200T PO; -DOXY100C PO; +EPIN1INJ21 IV PUSH; +EPIN1INJ21 SQ; -HUMALOG SQ; +LEVA500T20 PO; +MSIR15 PO; +NOVOLOGP2 SQ; +OXYC-395 PO; +SOLU250I IV PUSH; +VANC10IN IV
[2017-03-23 06:09] VITALS: BP 114/77; PULSE 111; RESP 24; TEMP 97.9; O2SAT 97
[2017-03-23] MEDS ORDERED: AMIO200T PO (06:28)
--- NOTE | 2017-03-23 06:58 | PD ---
HPI Chief Complaint: Syncope/Near-Syncope Time Seen by Provider: 06:39 Travel History International Travel<30 days: No Contact w/Intl Traveler<30days: No Traveled to known affect area: No History of Present Illness HPI 41-year-old man with extensive vascular disease, multiple dictations, end-stage renal disease, and A. fib, presents emergent [place] of syncopal episodes on setting well he is lying down and sitting down. Denies ever having previous similar symptoms in the past. He states that he begins C Zander passes out. States he come in episodes, more when he is lying flat. He otherwise has been feeling generally well. He has been feeling more weak and lethargic recently. No other definite infectious symptoms. He had dialysis on Friday which was uneventful. No other complaints. History Past Medical History Narrative Medical End-stage renal disease on hemodialysis follows with Dr. Song Hypertension Diabetes Atrial fibrillation status post ablation Congestive heart failure with EF of 25%, refused AICD COPD Sleep apnea on home nighttime oxygen at 2 L Anemia of chronic disease Bipolar disorder Tetanus Vaccination: < 5 Years Influenza Vaccination: Yes Social History Alcohol Use: No Tobacco Use: Yes (2 cigarettes a day) Allergies-Medications (Allergen,Severity, Reaction): Coded Allergies: haloperidol (Unverified Allergy, Severe, THROAT CLOSES UP, 01/07/17) metoclopramide (Unverified Allergy, Severe, Irritability/Anxiety, 01/07/17) DYSTONIC REACTION azithromycin (Unverified Allergy, Intermediate, anxiety and itching, ) piperacillin (Unverified Allergy, Unknown, 01/07/17) Pt reports he is not sure. Thinks he may have recd Keflex as outpt. tazobactam (Unverified Allergy, Unknown, 01/07/17) Pt reports he is not sure. Thinks he may have recd Keflex as outpt. clonidine (Unverified Adverse Reaction, Severe, 01/07/17) PT STATES HE GOES COMATOSE OR GETS VERY CRAZY, MEMORY LOSS hydromorphone (Unverified Adverse Reaction, Severe, becomes belligerent and out of control , 01/07/17) pt states does not have a allergy to this med lorazepam (Unverified Adverse Reaction, Intermediate, MAKES ANXIETY WORSE , 01/07/17) *MDRO Multi-Drug Resistant Organism (Verified Adverse Reaction, Unknown, ) MRSA (back)-10/13/16 MRSA (blood & ankle) - 04/2014; (buttock & chest) - 10/2015; (finger) - 12/23/15; (sputum) - 12/25/15; (Finger Wound) - 01/2016 MRSA PCR Screen POSITIVE - 01/10/15, 12/23/15, 02/25/16, MRSA (finger) 12/15/16, 12/18/16 MRSA (finger) 12/15/16 12/16/16 MRSA & Klebsiella pneumoniae ESBL Pos (finger wound) - 02/07/16 Uncoded Allergies: ANTIEMETICS ( PER PT ALL ) (Adverse Reaction, Unknown, MAKES " ME CRAZY ", 11/21/15) Reported Meds & Prescriptions Reported Meds & Active Scripts Active Oxycodone (Oxycodone HCl) 10 Mg Tab 10 Mg PO Q4H PRN Epinephrine Inj 1 Mg/Ml Inj 0.3 Mg SQ ONCE PRN Give with any signs of respiratory distress. Epinephrine Inj 1 Mg/Ml Inj 0.3 Mg IV PUSH ONCE PRN Morphine IR (Morphine Sulfate) 15 Mg Tab 15 Mg PO Q4H PRN Reported Amiodarone (Amiodarone HCl) 200 Mg Tab 200 Mg PO DAILY Calcium Acetate (Calcium Acetate (Phosphate Bin) 667 Mg Cap 4 Tab PO ACHS Novolog Inj (Insulin Aspart) 1,000 Unit/10 Ml Vial 0 SQ DIRECTED Sliding Scale as directed. Sensipar (Cinacalcet) 60 Mg Tab 60 Mg PO DAILY Xanax (Alprazolam) 0.5 Mg Tab 0.5 Mg PO HS PRN Aspirin 325 Mg Tab 325 Mg PO DAILY Omeprazole 20 Mg Tab 20 Mg PO DAILY Review of Systems Except as stated in HPI: all other systems reviewed are Neg Physical Exam Narrative GENERAL: Alert 41-year-old man, no acute distress. SKIN: Focused skin assessment warm/dry. Extensive areas of scabbing and skin lesions and small coin-shaped sizes scattered on the extremities. Several areas of skin lesions on the back. Some erythema on the lower leg especially on the right. HEAD: Atraumatic. Normocephalic. EYES: Pupils equal and round. No scleral icterus. No injection or drainage. ENT: No nasal bleeding or discharge. Mucous membranes pink and moist. NECK: Trachea midline. No JVD. CARDIOVASCULAR: Heart rate rapid, irregular. RESPIRATORY: No accessory muscle use. Clear to auscultation. Breath sounds equal bilaterally. GASTROINTESTINAL: Abdomen soft, non-tender, nondistended. Hepatic and splenic margins not palpable. MUSCULOSKELETAL: Multiple amputations. NEUROLOGICAL: Awake and alert. No obvious cranial nerve deficits. Motor grossly within normal limits. Normal speech. Data Data Last Documented VS Vital Signs Date Time Temp Pulse Resp B/P (MAP) Pulse Ox O2 Delivery O2 Flow Rate FiO2 03/23/17 06:18 Room Air 03/23/17 06:09 97.9 111 24 114/77 (89) 97 Orders Orders Electrocardiogram (03/23/17 06:51) Complete Blood Count With Diff (03/23/17 06:51) Comprehensive Metabolic Panel (03/23/17 06:51) Magnesium (Mg) (03/23/17 06:51) Prothrombin Time / Inr (Pt) (03/23/17 06:51) Act Partial Throm Time (Ptt) (03/23/17 06:51) Troponin I (03/23/17 06:51) Lipase (03/23/17 06:51) Chest, Single Ap (03/23/17 06:51) Ecg Monitoring (03/23/17 06:51) Iv Access Insert/Monitor (03/23/17 06:51) Oximetry (03/23/17 06:51) Oxygen Administration (03/23/17 06:51) Sodium Chloride 0.9% Flush (Ns Flush) (03/23/17 07:00) [facility] Medical Decision Making Medical Screen Exam Complete: Yes Emergency Medical Condition: Yes Interpretation(s) My review of EKG: A. fib with a rate of 123, normal axis, normal intervals, no definite evidence of acute ischemia. Some lateral T-wave inversions. Differential Diagnosis Syncope, arrhythmia, hypotension, electrolyte abnormality, infection, other Narrative Course Medical decision making 41-year-old man with syncope, episodic, while seated and lying flat, suggestive of medial versus infection or hypotension. Patient otherwise looks generally well but chronically ill. We'll check labs, EKG, chest x-ray, may need medicine for rate control, reassess. José Michelle MD Mar 23, 2017 06:58
[2017-03-23] MEDS ORDERED: SODIUM CHLORIDE 0.9% FLUSH 10 ML FLUSH IVF PRN (07:00)
--- NOTE | 2017-03-23 07:14 | PD ---
Physical Exam Date Seen by Provider: Mar 23, 2017 Time Seen by Provider: 07:11 Narrative The patient is a 41-year-old male was initially limited by the previous physician, Dr. Michelle. Please refer to the initial history, physical, diagnostic evaluation, and treatment modality plan. The patient was signed out at 7 AM with laboratory evaluation pending. Data Data Last Documented VS Vital Signs Date Time Temp Pulse Resp B/P (MAP) Pulse Ox O2 Delivery O2 Flow Rate FiO2 03/23/17 08:15 116 16 115/82 (93) 95 Room Air 03/23/17 06:09 97.9 Orders Orders Electrocardiogram (03/23/17 06:51) Complete Blood Count With Diff (03/23/17 06:51) Comprehensive Metabolic Panel (03/23/17 06:51) Magnesium (Mg) (03/23/17 06:51) Prothrombin Time / Inr (Pt) (03/23/17 06:51) Act Partial Throm Time (Ptt) (03/23/17 06:51) Troponin I (03/23/17 06:51) Lipase (03/23/17 06:51) Chest, Single Ap (03/23/17 06:51) Ecg Monitoring (03/23/17 06:51) Iv Access Insert/Monitor (03/23/17 06:51) Oximetry (03/23/17 06:51) Oxygen Administration (03/23/17 06:51) Sodium Chloride 0.9% Flush (Ns Flush) (03/23/17 07:00) Diltiazem Inj (Cardizem Inj) (03/23/17 08:15) Admit Order (Ed Use Only) (03/23/17 ) Network Technical Analyst / Telemetry [email or web address] (03/23/17 08:41) Vital Signs (Adult) Q4H (03/23/17 08:41) Diet Renal (03/23/17 Breakfast) Activity Bed Rest (03/23/17 08:41) Labs Laboratory Tests Test 03/23/17 06:55 White Blood Count 6.5 TH/MM3 Red Blood Count 4.30 MIL/MM3 Hemoglobin 13.6 GM/DL Hematocrit 43.0 % Mean Corpuscular Volume 100.0 FL Mean Corpuscular Hemoglobin 31.7 PG Mean Corpuscular Hemoglobin Concent 31.7 % Red Cell Distribution Width 18.3 % Platelet Count 105 TH/MM3 Mean Platelet Volume 9.3 FL Neutrophils (%) (Auto) 73.5 % Lymphocytes (%) (Auto) 14.8 % Monocytes (%) (Auto) 8.7 % Eosinophils (%) (Auto) 1.9 % Basophils (%) (Auto) 1.1 % Neutrophils # (Auto) 4.8 TH/MM3 Lymphocytes # (Auto) 1.0 TH/MM3 Monocytes # (Auto) 0.6 TH/MM3 Eosinophils # (Auto) 0.1 TH/MM3 Basophils # (Auto) 0.1 TH/MM3 CBC Comment DIFF FINAL Differential Comment Prothrombin Time 11.4 SEC Prothromb Time International Ratio 1.0 RATIO Activated Partial Thromboplast Time 28.5 SEC Blood Urea Nitrogen 46 MG/DL Creatinine 8.05 MG/DL Random Glucose 208 MG/DL Total Protein 8.6 GM/DL Albumin 3.4 GM/DL Calcium Level 9.6 MG/DL Magnesium Level 2.5 MG/DL Alkaline Phosphatase 260 U/L Aspartate Amino Transf (AST/SGOT) 17 U/L Alanine Aminotransferase (ALT/SGPT) 24 U/L Total Bilirubin 1.5 MG/DL Sodium Level 130 MEQ/L Potassium Level 4.9 MEQ/L Chloride Level 97 MEQ/L Carbon Dioxide Level 18.3 MEQ/L Anion Gap 15 MEQ/L Estimat Glomerular Filtration Rate 7 ML/MIN Troponin I 0.11 NG/ML Lipase 50 U/L [facility] Medical Record Reviewed: Yes Supervised Visit with TRACI: No Interpretation(s) EKG reveals atrial fibrillation with RVR with a rate of 123. Inverted T waves in lead V5, V6 1, aVL. Laboratory Tests Test 03/23/17 06:55 White Blood Count 6.5 TH/MM3 Red Blood Count 4.30 MIL/MM3 Hemoglobin 13.6 GM/DL Hematocrit 43.0 % Mean Corpuscular Volume 100.0 FL Mean Corpuscular Hemoglobin 31.7 PG Mean Corpuscular Hemoglobin Concent 31.7 % Red Cell Distribution Width 18.3 % Platelet Count 105 TH/MM3 Mean Platelet Volume 9.3 FL Neutrophils (%) (Auto) 73.5 % Lymphocytes (%) (Auto) 14.8 % Monocytes (%) (Auto) 8.7 % Eosinophils (%) (Auto) 1.9 % Basophils (%) (Auto) 1.1 % Neutrophils # (Auto) 4.8 TH/MM3 Lymphocytes # (Auto) 1.0 TH/MM3 Monocytes # (Auto) 0.6 TH/MM3 Eosinophils # (Auto) 0.1 TH/MM3 Basophils # (Auto) 0.1 TH/MM3 CBC Comment DIFF FINAL Differential Comment Prothrombin Time 11.4 SEC Prothromb Time International Ratio 1.0 RATIO Activated Partial Thromboplast Time 28.5 SEC Blood Urea Nitrogen 46 MG/DL Creatinine 8.05 MG/DL Random Glucose 208 MG/DL Total Protein 8.6 GM/DL Albumin 3.4 GM/DL Calcium Level 9.6 MG/DL Magnesium Level 2.5 MG/DL Alkaline Phosphatase 260 U/L Aspartate Amino Transf (AST/SGOT) 17 U/L Alanine Aminotransferase (ALT/SGPT) 24 U/L Total Bilirubin 1.5 MG/DL Sodium Level 130 MEQ/L Potassium Level 4.9 MEQ/L Chloride Level 97 MEQ/L Carbon Dioxide Level 18.3 MEQ/L Anion Gap 15 MEQ/L Estimat Glomerular Filtration Rate 7 ML/MIN Troponin I 0.11 NG/ML Lipase 50 U/L Chest x-ray reveals cardiomegaly. No focal pulmonary infiltrate or pulmonary vascular congestion. Differential Diagnosis Differential diagnosis includes syncope, arrhythmia, electrolyte abnormality, cardiomyopathy, aortic stenosis, significant carotid stenosis. Narrative Course The patient is a 21-year-old male was initially evaluated by the previous physician, Dr. Michelle. Please refer to the initial history, physical, diagnostic evaluation, and treatment modality plan. The patient was signed out at 7 AM with laboratory evaluation pending. Per the previous physician the patient had multiple episodes of syncope while at rest, will get lightheaded, dizzy, see white, and then passed out at rest. He does have significant history of chronic kidney disease and cardiomyopathy with an ejection fraction of 25%, apparently refused AICD in the past. Physician Communication Physician Communication The on-call medical service was paged for admission. I discussed the patient with Dr. Alfred who agrees with admission. Diagnosis Primary Impression: Syncope Qualified Codes: R55 - Syncope and collapse Additional Impressions: Atrial fibrillation with RVR End stage renal disease Elevated troponin Admitting Information Admitting Physician Requests: Admit Condition: Stable Frank Wilson MD Mar 23, 2017 07:14
[2017-03-23 07:15] VITALS: BP 103/58; PULSE 120; RESP 16; O2SAT 95
[2017-03-23 07:15] LABS: AUTOMATED NEUTROPHIL # 4.8 TH/MM3 (1.8-7.7); BASOPHIL # 0.1 TH/MM3 (0-0.2); BASOPHIL % 1.1 % (0.0-2.0); EOSINOPHIL # 0.1 TH/MM3 (0-0.4); EOSINOPHIL % 1.9 % (0.0-4.0); HEMO FLAGS DIFF FINAL; LYMPH % 14.8 % (9.0-44.0); MEAN CORPUSCULAR HEMOGLOBIN 31.7 PG (27.0-34.0); MEAN CORPUSCULAR HGB CONC 31.7 % (32.0-36.0); MONO % 8.7 % (0.0-8.0); NEUT % 73.5 % (16.0-70.0); PLATELET COUNT 105 TH/MM3 (150-450); RED CELL DISTRIBUTION WIDTH 18.3 % (11.6-17.2); WHITE BLOOD COUNT 6.5 TH/MM3 (4.0-11.0)
[2017-03-23 07:24] LABS: ALT (GPT) 24 U/L (12-78); ANION GAP 15 MEQ/L (5-15); AST (GOT) 17 U/L (15-37); BICARBONATE 18.3 MEQ/L (21.0-32.0); BLOOD UREA NITROGEN 46 MG/DL (7-18); CHLORIDE 97 MEQ/L (98-107); GLOMERULAR FILTRATION RATE 7 ML/MIN (>89); MAGNESIUM 2.5 MG/DL (1.5-2.5); POTASSIUM 4.9 MEQ/L (3.5-5.1); SODIUM (NA) 130 MEQ/L (136-145)
[2017-03-23 07:28] LABS: ALKALINE PHOSPHATASE 260 U/L (45-117); TOTAL BILIRUBIN ADULT 1.5 MG/DL (0.2-1.0)
--- NOTE | 2017-03-23 08:05 | RADRPT ---
EXAM DATE/TIME: 03/23/2017 07:06 [facility] COMPARISON: CHEST SINGLE AP, December 15, 2016, 21:26. INDICATIONS : Short of breath. MEDICAL HISTORY : Hypertension. Diabetes mellitus type II. Congestive heart failure. Hypercholesterolemia. SURGICAL HISTORY : Cardiac ablation. Cardiac cath. ENCOUNTER: Initial ACUITY: 1 day PAIN SCORE: 0/10 LOCATION: Bilateral chest FINDINGS: The heart is enlarged. The pulmonary vascular pattern is normal. The lungs are clear. CONCLUSION: 1. Cardiomegaly. 2. No acute focal pulmonary infiltrate or pulmonary vascular congestion. Pastor Wade MD on March 23, 2017 at 7:43 Board Certified Radiologist. This report was verified electronically.
[2017-03-23 08:12] LABS: APTT (PATIENT) 28.5 SEC (24.3-30.1); PROTHROMBIN TIME - PATIENT 11.4 SEC (9.8-11.6)
[2017-03-23 08:15] VITALS: BP 115/82; PULSE 116; RESP 16; O2SAT 95
[2017-03-23] MEDS ORDERED: DILTIAZEM HCL 25 MG/5 ML VIAL IV ONE (08:15)
[2017-03-23] MEDS ORDERED: MAGNESIUM HYDROXIDE SUSP 30 ML CUP PO PRN (08:45)
[2017-03-23] MEDS ORDERED: SODIUM CHLORIDE 0.9% FLUSH 10 ML FLUSH IV FLUSH PRN (08:45)
[2017-03-23] MEDS ORDERED: LACTULOSE SYRUP 20 GM/30 ML CUP PO PRN (08:45)
[2017-03-23] MEDS ORDERED: SENNOSIDES 8.6 MG TAB PO PRN (08:45)
[2017-03-23] MEDS ORDERED: ACETAMINOPHEN 325 MG TAB PO PRN (08:45)
[2017-03-23] MEDS ORDERED: BISACODYL 10 MG SUPP RECTAL PRN (08:45)
[2017-03-23] MEDS ORDERED: ONDANSETRON HCL 4 MG/2 ML VIAL IVP PRN (08:45)
[2017-03-23] MEDS ORDERED: NALOXONE HCL 0.4 MG/ML AMP IV PUSH PRN (08:45)
[2017-03-23] MEDS ORDERED: DILTIAZEM INJ 125 MG in SODIUM CHLORIDE 0.9% INJ 100 ML IV PRN (09:00)
[2017-03-23] MEDS ORDERED: GLUCAGON 1 MG/ML VIAL OTHER PRN (09:00)
[2017-03-23] MEDS ORDERED: DEXTROSE 50% IN WATER 50 ML VIAL(D50) IV PUSH PRN (09:00)
[2017-03-23] MEDS ORDERED: DILTIAZEM HCL 30 MG TAB PO SCH (09:00)
[2017-03-23] MEDS ORDERED: DOCUSATE SODIUM 50 MG/SENNA 8.6 MG TAB PO SCH (09:00)
[2017-03-23] MEDS ORDERED: SODIUM CHLORIDE 0.9% FLUSH 10 ML FLUSH IV FLUSH SCH (09:00)
[2017-03-23] MEDS ORDERED: ALPRAZolam 0.5 MG TAB PO PRN (09:00)
[2017-03-23] MEDS ORDERED: AMIODARONE 200 MG TAB PO SCH (09:00)
--- NOTE | 2017-03-23 09:00 | HHI.HP ---
HPI Service [facility] Primary Care Physician Maricarmen Song MD Admission Diagnosis syncope, a fibrillation fibrillation with RVR, ESRD on HD, elevated Diagnoses: Chief Complaint: Passing out Travel History International Travel<30 Days: No Contact w/Intl Traveler <30 Da: No Traveled to Known Affected Are: No History of Present Illness Written by Chilango Hennessy, acting as scribe for Dr. Davis on 03/23/17 at 09:00. 41-year-old male with a past medical history of CAD, CHF, cardiomyopathy, A. fib , HTN, ESRD on HD, bipolar disorder who presented for syncopal episodes. The past 4 days the patient has been having multiple syncopal episodes. He states the episodes only occur while he is lying down so it is making it difficult to sleep. He states when the episodes come on he feels weak, sees white, and then loses consciousness. He states this is probably happened 36-40 times over the past 4 days. Previously refused AICD. 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 He has chronic pain from calciphylaxis and has been on multiple different pain medications in the past. He has been on hospice in the past. He was found to have rapid A. fib, rate 110-120 in the ED and received IV Cardizem, BP currently stable and heart rate 90-100. Reports a history of hypotension. Review of Systems Except as stated in HPI: all other systems reviewed are Neg Past Family Social History Past Medical History Coronary artery disease Congestive heart failure, previous EF 25% Cardiomyopathy Atrial fibrillation Hypertension End-stage renal disease on hemodialysis Bipolar disorder Calciphylaxis with multiple amputations Past Surgical History Right BKA secondary to osteomyelitis AV fistula placement Cardiac ablation Multiple finger amputations secondary to osteomyelitis Reported Medications Reported Meds & Active Scripts Active Oxycodone (Oxycodone HCl) 10 Mg Tab 10 Mg PO Q4H PRN Epinephrine Inj 1 Mg/Ml Inj 0.3 Mg SQ ONCE PRN Give with any signs of respiratory distress. Epinephrine Inj 1 Mg/Ml Inj 0.3 Mg IV PUSH ONCE PRN Morphine IR (Morphine Sulfate) 15 Mg Tab 15 Mg PO Q4H PRN Reported Amiodarone (Amiodarone HCl) 200 Mg Tab 200 Mg PO DAILY Calcium Acetate (Calcium Acetate (Phosphate Bin) 667 Mg Cap 4 Tab PO ACHS Novolog Inj (Insulin Aspart) 1,000 Unit/10 Ml Vial 0 SQ DIRECTED Sliding Scale as directed. Sensipar (Cinacalcet) 60 Mg Tab 60 Mg PO DAILY Xanax (Alprazolam) 0.5 Mg Tab 0.5 Mg PO HS PRN Aspirin 325 Mg Tab 325 Mg PO DAILY Omeprazole 20 Mg Tab 20 Mg PO DAILY Allergies: Coded Allergies: haloperidol (Unverified Allergy, Severe, THROAT CLOSES UP, 01/07/17) metoclopramide (Unverified Allergy, Severe, Irritability/Anxiety, 01/07/17) DYSTONIC REACTION azithromycin (Unverified Allergy, Intermediate, anxiety and itching, ) piperacillin (Unverified Allergy, Unknown, 01/07/17) Pt reports he is not sure. Thinks he may have recd Keflex as outpt. tazobactam (Unverified Allergy, Unknown, 01/07/17) Pt reports he is not sure. Thinks he may have recd Keflex as outpt. clonidine (Unverified Adverse Reaction, Severe, 01/07/17) PT STATES HE GOES COMATOSE OR GETS VERY CRAZY, MEMORY LOSS hydromorphone (Unverified Adverse Reaction, Severe, becomes belligerent and out of control , 01/07/17) pt states does not have a allergy to this med lorazepam (Unverified Adverse Reaction, Intermediate, MAKES ANXIETY WORSE , 01/07/17) *MDRO Multi-Drug Resistant Organism (Verified Adverse Reaction, Unknown, ) MRSA (back)-10/13/16 MRSA (blood & ankle) - 04/2014; (buttock & chest) - 10/2015; (finger) - 12/23/15; (sputum) - 12/25/15; (Finger Wound) - 01/2016 MRSA PCR Screen POSITIVE - 01/10/15, 12/23/15, 02/25/16, MRSA (finger) 12/15/16, 12/18/16 MRSA (finger) 12/15/16 12/16/16 MRSA & Klebsiella pneumoniae ESBL Pos (finger wound) - 02/07/16 Uncoded Allergies: ANTIEMETICS ( PER PT ALL ) (Adverse Reaction, Unknown, MAKES " ME CRAZY ", 11/21/15) Active Ordered Medications Current Medications Medications (Trade) Dose Ordered Sig/Ralph Route Start Time Stop Time Status Last Admin (NS Flush) 2 ml UNSCH PRN IV FLUSH 03/23/17 08:45 (NS Flush) 2 ml BID IV FLUSH 03/23/17 09:00 (Tylenol) 650 mg Q4H PRN PO 03/23/17 08:45 (Zofran Inj) 4 mg Q6H PRN IVP 03/23/17 08:45 (Narcan Inj) 0.4 mg UNSCH PRN IV PUSH 03/23/17 08:45 (Janeth-Colace) 1 tab BID PO 03/23/17 09:00 (Milk Of Magnesia Liq) 30 ml Q12H PRN PO 03/23/17 08:45 (Senokot) 17.2 mg Q12H PRN PO 03/23/17 08:45 (Dulcolax Supp) 10 mg DAILY PRN RECTAL 03/23/17 08:45 (Lactulose Liq) 30 ml DAILY PRN PO 03/23/17 08:45 (Lovenox Inj) 30 mg Q24H SQ 03/23/17 10:00 (Cardizem) 30 mg QID PO 03/23/17 09:00 Diltiazem HCl 125 mg/Sodium Chloride 125 ml @ 5 mls/hr TITRATE PRN IV 03/23/17 09:00 (Xanax) 0.5 mg HS PRN PO 03/23/17 09:00 (Cordarone) 200 mg DAILY PO 03/23/17 09:00 (Aspirin) 325 mg DAILY PO 03/23/17 09:00 UNV Non-Formulary Medication 60 mg DAILY PO 03/23/17 09:00 UNV Non-Formulary Medication 20 mg DAILY PO 03/23/17 09:00 UNV (D50w (Vial) Inj) 50 ml UNSCH PRN IV PUSH 03/23/17 09:00 UNV (Glucagon Inj) 1 mg UNSCH PRN OTHER 03/23/17 09:00 UNV (NovoLOG SUPPLEMENTAL SCALE) 1 ACHS SLIDING SCALE SQ 03/23/17 12:00 UNV Family History Mother had kidney disease, heart disease, and cancer Father has Alzheimer's disease and otherwise healthy Social History Tobacco use No alcohol use Physical Exam Vital Signs Vital Signs Date Time Temp Pulse Resp B/P (MAP) Pulse Ox O2 Delivery O2 Flow Rate FiO2 03/23/17 08:15 116 16 115/82 (93) 95 Room Air 03/23/17 07:15 120 16 103/58 (73) 95 Room Air 03/23/17 06:18 Room Air 03/23/17 06:09 97.9 111 24 114/77 (89) 97 Physical Exam GENERAL: Well-developed well-nourished. Obese. Disheveled. In no acute distress. SKIN: Warm and dry. Numerous diffuse calcified cutaneous lesions. HEENT: Normocephalic. Pupils equal and round. EOMs intact. Mucous membranes pink and moist. CARDIOVASCULAR: Irregular rate and rhythm. No murmur appreciated. RESPIRATORY: No accessory muscle use. Clear to auscultation. Breath sounds equal bilaterally. GASTROINTESTINAL: Abdomen soft, non-tender, nondistended. Bowel sounds x4. MUSCULOSKELETAL: Right BKA and multiple finger amputations. No clubbing or cyanosis. No edema. NEUROLOGICAL: Awake and alert. No focal neurological deficits. Moves upper and lower extremities spontaneously. Normal speech. PSYCHIATRIC: Slightly agitated mood and affect; insight and judgment normal. Laboratory Laboratory Tests Test 03/23/17 06:55 White Blood Count 6.5 Red Blood Count 4.30 Hemoglobin 13.6 Hematocrit 43.0 Mean Corpuscular Volume 100.0 Mean Corpuscular Hemoglobin 31.7 Mean Corpuscular Hemoglobin Concent 31.7 Red Cell Distribution Width 18.3 Platelet Count 105 Mean Platelet Volume 9.3 Neutrophils (%) (Auto) 73.5 Lymphocytes (%) (Auto) 14.8 Monocytes (%) (Auto) 8.7 Eosinophils (%) (Auto) 1.9 Basophils (%) (Auto) 1.1 Neutrophils # (Auto) 4.8 Lymphocytes # (Auto) 1.0 Monocytes # (Auto) 0.6 Eosinophils # (Auto) 0.1 Basophils # (Auto) 0.1 CBC Comment DIFF FINAL Differential Comment Prothrombin Time 11.4 Prothromb Time International Ratio 1.0 Activated Partial Thromboplast Time 28.5 Blood Urea Nitrogen 46 Creatinine 8.05 Random Glucose 208 Total Protein 8.6 Albumin 3.4 Calcium Level 9.6 Magnesium Level 2.5 Alkaline Phosphatase 260 Aspartate Amino Transf (AST/SGOT) 17 Alanine Aminotransferase (ALT/SGPT) 24 Total Bilirubin 1.5 Sodium Level 130 Potassium Level 4.9 Chloride Level 97 Carbon Dioxide Level 18.3 Anion Gap 15 Estimat Glomerular Filtration Rate 7 Troponin I 0.11 Lipase 50 Result Diagram: 03/23/1755 03/23/1755 Imaging Last Impressions Chest X-Ray 03/23/17650 Signed Impressions: Service Date/Time: Thursday, March 23, 2017 07:06 - CONCLUSION: 1. Cardiomegaly. 2. No acute focal pulmonary infiltrate or pulmonary vascular congestion. MD Darby Magana VTE Risk Assessment Caprini VTE Risk Assessment: Mod/High Risk (score >= 2) Caprini Risk Assessment Model Point Value = 1 Point Value = 2 Point Value = 3 Point Value = 5 Age 41-60 Minor surgery BMI > 25 kg/m2 Swollen legs Varicose veins or History of unexplained or recurrent spontaneous Oral contraceptives or hormone replacement Sepsis (< 1 month) Serious lung disease, including pneumonia (< 1 month) Abnormal pulmonary function Acute myocardial infarction Congestive heart failure (< 1 month) History of inflammatory bowel disease Medical patient at bed rest Age 61-74 Arthroscopic surgery Major open surgery (> 45 min) Laparoscopic surgery (> 45 min) Malignancy Confined to bed (> 72 hours) Immobilizing plaster cast Central venous access Age >= 75 History of VTE Family history of VTE Factor V Leiden Prothrombin [id number] Lupus anticoagulant Anticardiolipin antibodies Elevated serum homocysteine Heparin-induced thrombocytopenia Other congenital or acquired thrombophilia Stroke (< 1 month) Elective arthroplasty Hip, pelvis, or leg fracture Acute spinal cord injury (< 1 month) Prophylaxis Regimen Total Risk Factor Score Risk Level Prophylaxis Regimen 0-1 Low Early ambulation 2 Moderate Order ONE of the following: *Sequential Compression Device (SCD) *Heparin 5000 units SQ BID 3-4 Higher Order ONE of the following medications: *Heparin 5000 units SQ TID *Enoxaparin/Lovenox 40 mg SQ daily (WT < 150 kg, CrCl > 30 mL/min) *Enoxaparin/Lovenox 30 mg SQ daily (WT < 150 kg, CrCl > 10-29 mL/min) *Enoxaparin/Lovenox 30 mg SQ BID (WT < 150 kg, CrCl > 30 mL/min) AND/OR *Sequential Compression Device (SCD) 5 or more Highest Order ONE of the following medications: *Heparin 5000 units SQ TID (Preferred with Epidurals) *Enoxaparin/Lovenox 40 mg SQ daily (WT < 150 kg, CrCl > 30 mL/min) *Enoxaparin/Lovenox 30 mg SQ daily (WT < 150 kg, CrCl > 10-29 mL/min) *Enoxaparin/Lovenox 30 mg SQ BID (WT < 150 kg, CrCl > 30 mL/min) AND *Sequential Compression Device (SCD) Assessment and Plan Assessment and Plan 41-year-old male with a past medical history of CAD, CHF, cardiomyopathy, A. fib , HTN, ESRD on HD, bipolar disorder who presented for syncopal episodes Syncopal episodes: Multiple episodes of rest over the past 4 days. Suspect secondary to underlying arrhythmia. Reviewed: EKG with A. fib, rate 120, lateral T-wave inversions; no significant change from previous. Troponin 0.11, previously 0.10 on 12/15/16, chronic due to renal disease and cardiomyopathy. -Monitor on telemetry -Consult cardiology -PT eval -Repeat echocardiogram A. fib with RVR: Heart rate initially 120, improved to 90-100 during evaluation after IV Cardizem. Only on amiodarone due to hypotension. -Add oral Cardizem scheduled with hold parameters for BP less than 110 -Cardizem drip as needed if heart rate greater than 100 CAD/CHF/cardiomyopathy: Chronic. Previous EF in 2016 was 25%. -Continue aspirin, amiodarone ESRD on hemodialysis: Chronic. -Consult patient's marbleizer for continued dialysis Friday, , and Friday -Continue Sensipar and calcium acetate for secondary hyperparathyroidism and calciphylaxis Chronic pain: Due to calciphylaxis. Patient has tried [place], morphine, and fentanyl patch as outpatient (confirmed on EForsce) with no relief. -Resume fentanyl patch scheduled and [place] as needed -Patient does not want hospice. Recommend outpatient pain management follow-up Insomnia: -Resume Xanax at night as needed Diabetes mellitus: Chronic. -Continue sliding scale coverage and monitor Accu-Cheks GERD: Chronic. -Continue PPI DVT prophylaxis: Heparin This note was transcribed by HANS Peñaloza. I, Dr. Annamarie Davis personally performed the history, physical exam, and medical decision making; and confirmed the accuracy of the information in the transcribed note. Authenticated by Dr. Annamarie Davis on 03/23/17 at 09:00. Discussed Condition With Patient, Chilango Liu Mar 23, 2017 09:00 Annamarie Davis MD Mar 23, 2017 10:09
[2017-03-23] MEDS ORDERED: ACETAMINOPHEN/HYDROcodone 325 MG/10 MG TAB PO PRN (09:15)
[2017-03-23 09:28] VITALS: BP 104/60; PULSE 99; RESP 16; O2SAT 95
[2017-03-23] MEDS ORDERED: ASPIRIN 325 MG TAB PO SCH (09:30)
[2017-03-23] MEDS ORDERED: PANTOPRAZOLE SOD 20 MG DELAYED RELEASE TAB PO SCH (09:30)
[2017-03-23] MEDS ORDERED: CINACALCET HYDROCHLORIDE 30 MG TAB PO SCH (09:30)
[2017-03-23] MEDS ORDERED: fentaNYL 50 MCG/HR PATCH T-DERMAL SCH (10:00)
[2017-03-23] MEDS ORDERED: ENOXAPARIN SODIUM 30 MG/0.3 ML SYRINGE SQ SCH (10:00)
[2017-03-23] MEDS ORDERED: INSULIN ASPART SUPPLEMENTAL SCALE SQ SCH (12:00)
--- NOTE | 2017-03-23 12:35 | MB ---
cc: VIVIEN BOYKIN M.D. DATE OF CONSULTATION: 03/23/2017. REASON FOR CONSULTATION: Electrophysiology consult for atrial fibrillation with fast ventricular response and syncopal episode. HISTORY OF PRESENT ILLNESS: Mr. Stahl is a 41-year-old gentleman with history of coronary artery disease, congestive heart failure, high blood pressure, end-stage renal disease on hemodialysis, severe peripheral vascular disease, right below-knee amputation, ejection fraction 25%. He has refused treatment in the past. He has refused defibrillator implantation by Dr. Martin. He was admitted through the emergency room due to syncopal episode. During hospitalization, his heart rate was very high. The patient is in atrial fibrillation with fast ventricular response. Treatment initiated. I was consulted for further evaluation and management. The chart was reviewed. The patient was evaluated. ALLERGIES: 1. ALLOPURINOL. 2. METOCLOPRAMIDE. 3. ZITHROMAX. 4. PIPERACILLIN / TAZOBACTAM. 5. CLONIDINE. 6. HYDROMORPHONE. 7. LORAZEPAM. SOCIAL HISTORY: The gentleman is still smoking. FAMILY HISTORY: Noncontributory to his current medical condition. MEDICATIONS AT HOME: 1. Amiodarone 200 milligrams a day. 2. Insulin. 3. Sensipar. 4. Xanax. 5. Aspirin. 6. Omeprazole. 7. Oxycodone was given in the hospital. 8. Aspirin was added. 9. Cardizem was initiated. REVIEW OF SYSTEMS: Currently the patient is very tense. He resisted other communication but he refers no chest pain. He refers shortness of breath. He states he wants to go home and and does not want to be taken care of. PHYSICAL EXAMINATION: GENERAL: Alert. He is apparently oriented in person and space. He is very combative. He states he wants to go home and , nobody does nothing for him in this hospital. VITAL SIGNS: Blood pressure 104/60, pulse 99 irregular, respiratory rate 20. LUNGS: Ventilated. CARDIOVASCULAR: S1-S2 irregular. No gallop. ABDOMEN: Abdomen obese, no mass. No bruits. EXTREMITIES: Right below-knee amputation. Severe peripheral vascular disease. AV fistula in the left arm. LABORATORY DATA: Hemoglobin 13.6, white blood cells 6.5. Potassium 4.9, creatinine 8.05. Troponin 0.11. INR 1.0. ASSESSMENT AND RECOMMENDATIONS: Mr. Ureña has atrial fibrillation. He had a syncopal episode. Syncope may be a malignant arrhythmia because of the history of coronary artery disease, severe peripheral vascular disease with an ejection fraction of around 25%. He is already on amiodarone. Cardizem was initiated. At this point, the gentleman refuses any further treatment. He was apparently on hospice in the past but signed off hospice. The patient also has bipolar disorder. It may be necessary for him to be evaluated by psychiatry. I am trying to convince the gentleman to stay in the hospital for further management but he states whenever he comes here everybody tries to kill him. At this point, I am signing off. The gentleman refuses anything to be done. If he changes his mind, I will be available. MD TINO Mckinley/MORAIMA /10:32 AM /12:23 PM
--- NOTE | 2017-03-23 20:39 | EKG ---
Date Performed: 03/23/2017 Time Performed: 06:11:48 PTAGE: 41 years EKG: ATRIAL FIBRILLATION WITH RAPID VENTRICULAR RESPONSE ANTEROLATERAL MYOCARDIAL INFARCTION ABN ORMAL ECG PREVIOUS TRACING : 12/15/2016 20.31 DOCTOR: Maricarmen Higgins Interpretating Date/Time 03/23/2017 20:38:01
[2017-03-23] MEDS ORDERED: HEPARIN SODIUM - SQ 10,000 UNITS/ML VIAL SQ SCH (21:00)
[2017-03-26] MEDS ORDERED: REMOVE OLD DURAGESIC (FENTANYL) PATCH T-DERMAL SCH (10:00)
== END 2017-03-23 11:16 | disposition left against medical advice (07) | DRG 312 ==
LOC: NEPC 06:00 → NEDA 08:43
PROVIDERS: ADMIT Hospitalist; ATTEND Hospitalist
DX: R55 Syncope and collapse (principal); I13.2 Hypertensive heart and chronic kidney disease with heart failure and with stage 5 chronic kidney disease, or end stage renal disease; E11.22 Type 2 diabetes mellitus with diabetic chronic kidney disease; N18.6 End stage renal disease; I95.9 Hypotension, unspecified; N25.81 Secondary hyperparathyroidism of renal origin; E83.59 Other disorders of calcium metabolism; I50.9 Heart failure, unspecified; I48.91 Unspecified atrial fibrillation; G89.29 Other chronic pain; D63.8 Anemia in other chronic diseases classified elsewhere; G47.00 Insomnia, unspecified; G47.30 Sleep apnea, unspecified; I25.10 Atherosclerotic heart disease of native coronary artery without angina pectoris; I73.9 Peripheral vascular disease, unspecified; J44.9 Chronic obstructive pulmonary disease, unspecified; K21.9 Gastro-esophageal reflux disease without esophagitis; F31.9 Bipolar disorder, unspecified; F17.210 Nicotine dependence, cigarettes, uncomplicated; Z89.511 Acquired absence of right leg below knee; Z99.2 Dependence on renal dialysis
CPT/HCPCS: 71010; 80053; 83690; 83735; 84484; 85025; 85610; 85730; 93005

== ENCOUNTER 2017-04-08 19:25 | Emergency (ER) | payer MEDICARE, OTHER ==
[2017-04-08 19:19] VITALS: O2SAT 74
[~2017-04-08 19:25] MED LIST changes: +AMIO200T PO; +ASPI-183 PO; -ASPI325T PO; -DIFL200T PO; -LEVA500T20 PO; -OMEP20TA PO; +OMEP20TA93 PO; -SOLU250I IV PUSH; -VANC10IN IV
[2017-04-08] MEDS ORDERED: MAGNESIUM SULFATE 40 MEQ/10 ML VIAL IV ONE (19:26)
[2017-04-08] MEDS ORDERED: EPINEPHrine HCL (1:10,000) 1 MG/10 ML SYRINGE IV ONE (19:26)
[2017-04-08] MEDS ORDERED: SODIUM BICARBONATE 8.4% INJ 50 MEQ/50 ML SYR IV ONE (19:26)
[2017-04-08] MEDS ORDERED: AMIODARONE HCL 150 MG/3 ML VIAL IV ONE (19:26)
[2017-04-08] MEDS ORDERED: CALCIUM CHLORIDE 10% SOLN 1 GRAM/10 ML SYR IV ONE (19:26)
--- NOTE | 2017-04-08 20:14 | PD ---
HPI Chief Complaint: Code Blue Time Seen by Provider: 19:51 Travel History International Travel<30 days: No Contact w/Intl Traveler<30days: No Traveled to known affect area: No History of Present Illness HPI 41-year-old male was brought to the emergency room by EMS coding and getting a CPR. As per EMS patient was found unresponsive slumped over his wheelchair by his father. 911 was called at 1830. CPR was started as soon as EMS arrived and a Combitube was put in an patient was getting bagged through the Combitube. He received multiple rounds of epi, one bicarbonate and 1 calcium en route. Patient is a end-stage renal disease and hemodialysis dependent. He received his last dialysis as per patient's father yesterday. Patient obviously was in no condition to give any history. As per the paramedics they had twice ROSC but just before they pulled into the emergency room patient went pulseless again and CPR was started again. When he arrived patient continued to be pulseless and CPR was taken over by the ER team. [facility] Past Medical History Narrative Medical List of his past medical, surgical, social and family history is reviewed from the nursing note. Hx Anticoagulant Therapy: Yes Arthritis: Yes (rheumatoid) Asthma: No Atrial Fibrillation: Yes Autoimmune Disease: No Blood Disorders: No Bipolar Disorder: Yes Anxiety: Yes Depression: Yes Heart Rhythm Problems: Yes (afib) Cancer: No Cardiac Catheterization: Yes (FOR ABLATION) Cardiovascular Problems: Yes (cardiomyopathy, afib) High Cholesterol: Yes Chemotherapy: No Chest Pain: Yes Congestive Heart Failure: Yes COPD: No Cerebrovascular Accident: Yes (TIA) Diabetes: Yes Dialysis: Yes (MON, WED, FRI ) Diminished Hearing: No Endocrine: Yes Gastrointestinal Disorders: Yes GERD: Yes Glaucoma: Yes Genitourinary: Yes (DOESN'T VOID/MWF HD, L AV fistula) Headaches: Yes Hepatitis: No Hiatal Hernia: No Heparin Induced Thrombocytopen: No Hypertension: Yes (HYPERTROPHY) Immune Disorder: No Implanted Vascular Access Dvce: Yes (DIALYSIS) Kidney Stones: Yes Musculoskeletal: Yes (back pain) Neurologic: Yes Psychiatric: No Reproductive: No Respiratory: Yes (home O2 dependent ) Immunizations Current: Yes Migraines: Yes Myocardial Infarction: Yes Radiation Therapy: No Renal Failure: Yes Schizophrenia: Yes Seizures: Yes (states med induced seizure) Sickle Cell Disease: No Sleep Apnea: Yes Thyroid Disease: No Ulcer: No Past Surgical History Abdominal Surgery: Yes (pyloric stenosis as ) AICD: No Appendectomy: No Arteriovenous Shunt: Yes (left arm) Body Medical Devices: left arm fistula Cardiac Surgery: Yes (Ablation to heart) Cholecystectomy: No Ear Surgery: No Endocrine Surgery: No Eye Surgery: Yes (CATARACTS REMOVED, MANY EYE SURGERIES) Genitourinary Surgery: Yes (left arm fistula) Gynecologic Surgery: No Insulin Pump: No Joint Replacement: No Neurologic Surgery: No Oral Surgery: No Pacemaker: No Thoracic Surgery: No Other Surgery: Yes (AV FISTULA PLACED LEFT ARM: 2010) Social History Alcohol Use: No Tobacco Use: Yes (2 cigarettes a day) Substance Use: No Allergies-Medications (Allergen,Severity, Reaction): Coded Allergies: haloperidol (Unverified Allergy, Severe, THROAT CLOSES UP, 01/07/17) metoclopramide (Unverified Allergy, Severe, Irritability/Anxiety, 01/07/17) DYSTONIC REACTION azithromycin (Unverified Allergy, Intermediate, anxiety and itching, ) piperacillin (Unverified Allergy, Unknown, 01/07/17) Pt reports he is not sure. Thinks he may have recd Keflex as outpt. tazobactam (Unverified Allergy, Unknown, 01/07/17) Pt reports he is not sure. Thinks he may have recd Keflex as outpt. 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 Reported Meds & Prescriptions Reported Meds & Active Scripts Active Oxycodone (Oxycodone HCl) 10 Mg Tab 10 Mg PO Q4H PRN Epinephrine Inj 1 Mg/Ml Inj 0.3 Mg SQ ONCE PRN Give with any signs of respiratory distress. Epinephrine Inj 1 Mg/Ml Inj 0.3 Mg IV PUSH ONCE PRN Morphine IR (Morphine Sulfate) 15 Mg Tab 15 Mg PO Q4H PRN Reported Amiodarone (Amiodarone HCl) 200 Mg Tab 200 Mg PO DAILY Calcium Acetate (Calcium Acetate (Phosphate Bin) 667 Mg Cap 4 Tab PO ACHS Novolog Inj (Insulin Aspart) 1,000 Unit/10 Ml Vial 0 SQ DIRECTED Sliding Scale as directed. Sensipar (Cinacalcet) 60 Mg Tab 60 Mg PO DAILY Xanax (Alprazolam) 0.5 Mg Tab 0.5 Mg PO HS PRN Aspirin 325 Mg Tab 325 Mg PO DAILY Omeprazole 20 Mg Tab 20 Mg PO DAILY Narrative Medication List of his home medications reviewed from the nursing note. Review of Systems ROS Limitations: Intubated, Unresponsive Except as stated in HPI: all other systems reviewed are Neg Physical Exam Narrative GENERAL: Obese, unresponsive, intubated, boarded, CPR in progress SKIN: Focused skin assessment warm/dry. Multiple open sores on the body HEAD: Atraumatic. Normocephalic. EYES: Pupils equal and round, 4 mm fixed. No scleral icterus. No injection or drainage. ENT: No nasal bleeding or discharge. Mucous membranes pink and moist. NECK: Trachea midline. No JVD. Intubated by Combitube CARDIOVASCULAR: Pulseless RESPIRATORY: No spontaneous respiration GASTROINTESTINAL: Abdomen soft, non-tender, distended. Hepatic and splenic margins not palpable. MUSCULOSKELETAL: No obvious deformities. No clubbing. No cyanosis. No edema. Left BKA NEUROLOGICAL: GCS of 3 PSYCHIATRIC: Unable to assess Data Data Orders Orders Amiodarone Inj (Cordarone Inj) (04/08/17 19:26) Calcium Chloride Inj (Calcium Chloride I (04/08/17 19:26) Epinephrine (1:10,000) Inj (Epinephrine (04/08/17 19:26) Magnesium Sulfate Inj (Magnesium Sulfate (04/08/17 19:26) Sodium Bicarbonate 8.4% Inj (Sodium Bica (04/08/17 19:26) MDM Medical Decision Making Medical Screen Exam Complete: Yes Emergency Medical Condition: Yes Medical Record Reviewed: Yes Differential Diagnosis Cardiorespiratory arrest Narrative Course 8:10 PM the CPR was continued as per the ACLS protocol. The Combitube was replaced by me with a definitive endotracheal tube. Please refer to my procedure note. Multiple rounds of medications were given. Please refer to the nursing sheet for the medications names and the time administered. Patient was defibrillated 3-4 times given persistent ventricular fibrillation. There was a bedside ultrasound done where heart was noticed to be in fibrillar motion. Patient was also given 300 of amiodarone bolus. There was never a ROSC achieved. Finally after doing CPR for 25 minutes I made the decision to abort CPR given the medical futility at this point. Patient was pronounced by me at 1746. The [employer] was here and I spoke with the officer to let him know. I also discussed with patient's product strategy director Dr. Lyons and notified him about the . He would sign the certificate. He mentioned that the patient was very sick with multiple medical issues. I have not had any family member up here yet so that I can talk to them about the . Critical Care Narrative Aggregate critical care time was 30 minutes. Time to perform other separately billable procedures was not included in the critical care time. My time did not include minutes spent treating any other patients simultaneously or on activities that did not directly contribute to the patient's treatment. The services I provided to this patient were to treat and/or prevent clinically significant deterioration that could result in: Cardiorespiratory arrest, high quality CPR I provided critical care services requiring my management, as noted below: Chart data review, documentation time, medication orders and management, vital sign assessments/reviewing monitor data, ordering and reviewing lab tests, ordering and interpreting/reviewing x-rays and diagnostic studies, care of the patient and discussion of the patient with the admitting physicians. Procedures Procedure Narrative After the risks and benefits were discussed the following procedure was performed: INTUBATION: The patient was put in optimal position for the procedure. Rapid sequence intubation was initiated by me using 0 milligrams of etomidate IV and 0 milligrams of 0 IV. The patient was intubated with a 7.5 cuffed endotracheal tube. Tube placement was confirmed by visualization of the tube and balloon passing through the cords, capnometry and subsequent chest x-ray. Breath sounds were equal and well aerated bilaterally postintubation. No breath sounds over stomach. Patient tolerated procedure well. EKG Prior to Arrival: No Diagnosis Primary Impression: Cardiorespiratory arrest Disposition: 20 Condition: Lisandra Cintron MD Apr 08, 2017 20:14
== END 2017-04-08 22:45 | disposition expired ==
LOC: NEPC 19:25 → NEPI 22:45
DX: I46.9 Cardiac arrest, cause unspecified (principal); E11.22 Type 2 diabetes mellitus with diabetic chronic kidney disease; I12.0 Hypertensive chronic kidney disease with stage 5 chronic kidney disease or end stage renal disease; N18.6 End stage renal disease; I50.9 Heart failure, unspecified; I13.2 Hypertensive heart and chronic kidney disease with heart failure and with stage 5 chronic kidney disease, or end stage renal disease; M06.9 Rheumatoid arthritis, unspecified; I48.91 Unspecified atrial fibrillation; Z99.2 Dependence on renal dialysis
CPT/HCPCS: 31500; 92950; 99291; J0171; J0282; J3475